=== PATIENT | male | born 1985 | race Caucasian/White ===

== ENCOUNTER 2017-01-04 18:48 | Emergency (ER) | payer MEDICAID ==
[2017-01-04 19:02] VITALS: BP 155/100
--- NOTE | 2017-01-04 19:50 | ED Physician Documentation ---
History of Present Illness - Stated complaint Stated Complaint: FACIAL RASH - Chief complaint Chief Complaint: General - History obtained from History obtained from: Patient, Family - History of Present Illness Timing: Today (Mildly itchy facial rash starting today without clear cause. No new medications or topical treatments. No throat swelling, sore throat or trouble breathing.) Review of Systems Constitutional: denies: Fever, Chills Nose: denies: Rhinorrhea / runny nose, Congestion Throat: denies: Sore throat Respiratory: denies: Dyspnea, Cough GI: denies: Abdominal Pain PD PAST MEDICAL HISTORY - Past Medical History Past Medical History: Yes Cardiovascular: None Respiratory: Asthma Neuro: Cerebral palsy Endocrine/Autoimmune: None GI: None : None HEENT: None Psych: None Musculoskeletal: Osteoporosis Derm: None - Past Surgical History Past Surgical History: Yes - Present Medications Home Medications: Ambulatory Orders Medication Instructions Recorded Confirmed Baclofen 20 mg PO TID 11/18/12 11/18/12 Calcium Carbonate [Tums] 1 11/18/12 11/18/12 Cholecalciferol (Vitamin D3) 400 unit PO 11/18/12 11/18/12 [Vitamin D] Diazepam [Valium] 5 mg PO PRN PRN 11/18/12 11/18/12 HYDROcod/ACETAM 5/325 [Vicodin 1 tab PO PRN PRN 11/18/12 11/18/12 5/325] Nortriptyline [Pamelor] 20 mg PO DAILY 01/04/17 01/04/17 - Allergies Allergies/Adverse Reactions: Allergies Allergy/AdvReac Type Severity Reaction Status Date / Time gabapentin Allergy Hives Verified 01/04/17 19:35 ibuprofen [From Motrin IB] Allergy Rash Verified 01/04/17 19:02 - Social History Does the pt smoke?: No Smoking Status: Never smoker Does the pt drink ETOH?: No Does the pt have substance abuse?: No - Immunizations Immunizations are current?: Yes - POLST Patient has POLST: No PD ED PE NORMAL - Vitals Vital signs reviewed: Yes - General General: Alert and oriented X 3, No acute distress - HEENT HEENT: PERRL, EOMI, Pharynx benign - Neck Neck: Supple, no meningeal sign, No bony TTP - Derm Derm: Other (Mild facial erythema stopping at the neckline, there is a sandpaper type quality to it, making her reminiscent of scarlet fever but he doesn't have any fever or sore throat.) - Neuro Neuro: Alert and oriented X 3, Other - Psych Psych: Normal mood, Normal affect Results - Vitals Vitals: Vital Signs - 24 hr 01/04/17 18:57 Temperature 36.7 C Heart Rate 102 H Respiratory 20 Rate Blood Pressure 155/100 H O2 Saturation 97 Oxygen O2 Source Room air Departure - Departure Disposition: Home, Self Care Clinical Impression: Facial rash Condition: Good Record reviewed to determine appropriate education?: Yes Instructions: ED Erythema Comments: Continue Benadryl as needed for itching. Return if worse or if you run a fever. If still having issues next week followup with your primary care physician or a fiberglass model maker. Your blood pressure was elevated today on check in to the emergency department. This does not mean that you have hypertension, it is a common phenomenon to check into the emergency department and have elevated blood pressure. I recommend that you see your primary care physician within the week to have it rechecked when you're feeling better.
== END 2017-01-04 19:54 | disposition home or self-care (01) ==
LOC: ED 18:48
DX: R21 Rash and other nonspecific skin eruption (principal); R03.0 Elevated blood-pressure reading, without diagnosis of hypertension
CPT/HCPCS: 99282; 99283

== ENCOUNTER 2017-08-27 23:11 | Emergency (ER) | payer MEDICAID ==
[2017-08-27] MEDS ORDERED: ONDANSETRON ODT 4 MG TABLET TL STA (23:30)
--- NOTE | 2017-08-27 23:42 | ED Physician Documentation ---
History of Present Illness - Stated complaint Stated Complaint: NAUSEA/VOMITING - Chief complaint Chief Complaint: Allergic Rx - History obtained from History obtained from: Patient, Family - History of Present Illness Timing: Today - Additonal information Additional information: Patient is a 31 year old male with a history of cerebral palsy and chronic pain who was brought in by his mother for one episode of vomiting. Mother states that she tried a new medicine today for him. After taking the medication he vomited one time. Patient's father was coming in for GI symptoms so they had the son evaluated as well. Review of Systems Constitutional: denies: Fever, Chills Eyes: reports: Reviewed and negative Ears: reports: Reviewed and negative Nose: reports: Reviewed and negative Throat: reports: Reviewed and negative Cardiac: reports: Reviewed and negative Respiratory: reports: Reviewed and negative GI: reports: Reviewed and negative : reports: Reviewed and negative Skin: reports: Reviewed and negative Musculoskeletal: reports: Reviewed and negative Neurologic: reports: Other (unchanged) Psychiatric: reports: Reviewed and negative Endocrine: reports: Reviewed and negative PD PAST MEDICAL HISTORY - Past Medical History Past Medical History: Yes Cardiovascular: None Respiratory: Asthma Neuro: Cerebral palsy Endocrine/Autoimmune: None GI: None : None HEENT: None Psych: None Musculoskeletal: Osteoporosis, Chronic back pain Derm: None - Past Surgical History Past Surgical History: Yes - Present Medications Home Medications: Ambulatory Orders Medication Instructions Recorded Confirmed Baclofen 20 mg PO TID 11/18/12 11/18/12 Calcium Carbonate [Tums] 1 11/18/12 11/18/12 Cholecalciferol (Vitamin D3) 400 unit PO 11/18/12 11/18/12 [Vitamin D] Diazepam [Valium] 5 mg PO PRN PRN 11/18/12 11/18/12 HYDROcod/ACETAM 5/325 [Vicodin 1 tab PO PRN PRN 11/18/12 11/18/12 5/325] Nortriptyline [Pamelor] 20 mg PO DAILY 01/04/17 01/04/17 Ondansetron Odt [Zofran] 4 mg TL Q6H PRN #14 tablet 08/27/17 diazePAM [Valium] 5 - 10 mg PO TID PRN #15 tablet 08/27/17 - Allergies Allergies/Adverse Reactions: Allergies Allergy/AdvReac Type Severity Reaction Status Date / Time gabapentin Allergy Hives Verified 08/27/17 23:37 ibuprofen [From Motrin IB] Allergy Rash Verified 08/27/17 23:37 - Social History Does the pt smoke?: No Smoking Status: Never smoker Does the pt drink ETOH?: No Does the pt have substance abuse?: No - Immunizations Immunizations are current?: Yes - POLST Patient has POLST: No PD ED PE NORMAL - General General: Alert and oriented X 3, No acute distress - HEENT HEENT: Atraumatic, Moist mucous membranes - Cardiac Cardiac: RRR - Respiratory Respiratory: No respiratory distress - Abdomen Abdomen: Soft, Non distended - Derm Derm: Normal color, No rash - Neuro Neuro: Alert and oriented X 3, Normal speech Eye Opening: Spontaneous Motor: Obeys Commands Verbal: Oriented GCS Score: 15 Results - Vitals Vitals: Vital Signs - 24 hr 08/27/17 08/28/17 23:20 00:15 Temperature 36.4 C L Heart Rate 120 H 105 H Respiratory 20 21 Rate Blood Pressure 129/118 H 150/95 H O2 Saturation 99 98 Oxygen O2 Source Room air PD MEDICAL DECISION MAKING - ED course Complexity details: reviewed old records, re-evaluated patient, considered differential, d/w patient, d/w family ED course: Patient was seen and examined at bedside. patient was well appearing and in no acute distress. patient was treated with zofran and his nightly vicodin. Patient tolerate PO without difficulty. Patient required no further work up and was stable for discharge with outpatient follow up. Departure - Departure Disposition: 01 Home, Self Care Clinical Impression: Adverse drug effect Condition: Good Instructions: ED Drug React Adverse Other Follow-Up: Kathy Ponce ARNP [Primary Care Provider] - Within 3 Days Prescriptions: diazePAM [Valium] 5 - 10 mg PO TID PRN #15 tablet PRN Reason: Spasms Ondansetron Odt [Zofran] 4 mg TL Q6H PRN #14 tablet PRN Reason: Nausea / Vomiting Comments: You should stop your new muscle relaxer. You can take zofran as needed for nausea. You should follow up with your doctor this week for further evaluation and care. Discharge Date/Time: 08/28/17 00:40
[2017-08-28] MEDS ORDERED: HYDROcod/ACETAM 5/325 MG TABLET PO STA (00:09)
[2017-08-28 00:15] VITALS: BP 150/95
[2017-08-28] MEDS ORDERED: ONDANSETRON ODT 4 MG Prepack 2 TL PRN (00:29)
== END 2017-08-28 00:40 | disposition home or self-care (01) ==
LOC: ED 23:11
DX: R11.2 Nausea with vomiting, unspecified (principal); T48.205A Adverse effect of unspecified drugs acting on muscles, initial encounter; G80.9 Cerebral palsy, unspecified
CPT/HCPCS: 99283; A9270; Q0162

== ENCOUNTER 2017-10-17 16:30 | Outpatient (CLI) | payer MEDICAID ==
[2017-10-17 18:41] LABS: BILIRUBIN,URINE NEGATIVE (NEGATIVE); GLUCOSE, URINE (UA) NEGATIVE (NEGATIVE); KETONES,URINE (UA) NEGATIVE (NEGATIVE); LEUKOCYTE ESTERASE, URINE NEGATIVE (NEGATIVE); NITRITE,URINE NEGATIVE (NEGATIVE); OCCULT BLOOD,URINE NEGATIVE (NEGATIVE); PROTEIN,URINE NEGATIVE (NEGATIVE); UROBILINOGEN,URINE 0.2 (NORMAL) E.U./dL (NORMAL)
[2017-10-17 18:47] LABS: CLARITY,URINE CLEAR (CLEAR)
[2017-10-17 19:02] LABS: BACTERIA,URINE Rare /HPF (None Seen); MUCUS,URINE Few Strands; RBC,URINE 0-5 /HPF (0-5); SQUAMOUS EPITHELIAL CELL,UR RARE Squamous (<= Few)
== END 2017-10-17 16:31 | disposition home or self-care (01) ==
LOC: LAB.R 16:30
PROVIDERS: ATTEND Physician Assistant Medical
DX: N43.3 Hydrocele, unspecified (principal); N50.811 Right testicular pain
CPT/HCPCS: 81001; 87086

== ENCOUNTER 2017-10-18 06:50 | Emergency (ER) | payer MEDICAID ==
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
[2017-10-18 15:56] VITALS: BP 150/90
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
== END 2017-10-18 15:55 | disposition home or self-care (01) ==
LOC: ED 06:50
DX: F29 Unspecified psychosis not due to a substance or known physiological condition (principal); F41.9 Anxiety disorder, unspecified; E86.0 Dehydration; G80.9 Cerebral palsy, unspecified; G89.29 Other chronic pain
CPT/HCPCS: 99283; 99284; G0425; Q3014

== ENCOUNTER 2017-11-13 16:00 | Outpatient (CLI) | payer MEDICAID ==
[2017-11-13 20:19] LABS: BILIRUBIN,URINE NEGATIVE (NEGATIVE); GLUCOSE, URINE (UA) NEGATIVE (NEGATIVE); KETONES,URINE (UA) NEGATIVE (NEGATIVE); LEUKOCYTE ESTERASE, URINE NEGATIVE (NEGATIVE); NITRITE,URINE NEGATIVE (NEGATIVE); OCCULT BLOOD,URINE NEGATIVE (NEGATIVE); PROTEIN,URINE NEGATIVE (NEGATIVE); UROBILINOGEN,URINE 0.2 (NORMAL) E.U./dL (NORMAL)
[2017-11-13 20:37] LABS: CLARITY,URINE CLEAR (CLEAR)
[2017-11-13 20:38] LABS: BACTERIA,URINE None Seen /HPF (None Seen); CRYSTALS,URINE 11-25 Ca Oxalate /LPF; RBC,URINE 0-5 /HPF (0-5); SQUAMOUS EPITHELIAL CELL,UR NONE SEEN (<= Few)
== END 2017-11-13 16:01 ==
LOC: LAB.R 16:00
PROVIDERS: ATTEND Physician Assistant Medical
DX: M54.5 Low back pain (principal); N50.9 Disorder of male genital organs, unspecified
CPT/HCPCS: 81001; 87086

== ENCOUNTER 2017-11-20 14:52 | Outpatient (CLI) | payer MEDICAID ==
--- NOTE | 2017-11-20 16:16 | Ultrasound Report ---
SCROTAL DUPLEX: 11/20/2017 CLINICAL INDICATION: Right-sided palpable abnormality. TECHNIQUE: Real-time scanning with patient portal representative static images obtained with Doppler. FINDINGS: The right testicle measures 4.1 x 2.9 x 2.0 cm, and the left testicle measures 4.3 x 2.5 x 2.1 cm. Both testicles demonstrate normal flow and echotexture. There is a 6.2 x 5.8 x 3.5 cm right epididymal cyst. Trace right hydrocele is present. The left epididymis is unremarkable. No hernia or varicocele is present. IMPRESSION: A 6.2 CM RIGHT EPIDIDYMAL CYST, ACCOUNTING FOR THE PALPABLE ABNORMALITY. NORMAL TESTES. TD: 11/20/2017 16:15 [facility]
== END 2017-11-20 14:53 | disposition home or self-care (01) ==
LOC: DI 14:52
PROVIDERS: ATTEND Physician Assistant Medical
DX: N50.9 Disorder of male genital organs, unspecified (principal); N50.3 Cyst of epididymis
CPT/HCPCS: 76870

== ENCOUNTER 2017-12-11 15:07 | Outpatient (CLI) | payer MEDICAID | END 2017-12-11 15:08 | disposition short-term general hospital (02) | LOC: EMS 15:07 | PROVIDERS: ATTEND Surgery | DX: R53.1 Weakness (principal); R52 Pain, unspecified; R05 Cough | CPT/HCPCS: A0425; A0427 ==

== ENCOUNTER 2018-04-30 14:28 | Outpatient (CLI) | payer MEDICAID ==
[2018-04-30 18:50] LABS: BASOPHILS % (AUTO) 0.5 %; EOSINOPHILS # (AUTO) 0.2 10^3/uL (0.0-0.7); EOSINOPHILS % (AUTO) 2.1 %; HGB - HEMOGLOBIN 15.2 g/dL (14.0-18.0); LYMPHOCYTES # (AUTO) 3.2 10^3/uL (1.5-3.5); LYMPHOCYTES % (AUTO) 29.9 %; MEAN CORPUSCULAR HEMOGLOBIN 27.3 pg (27.0-31.0); MEAN CORPUSCULAR HGB CONC 32.7 g/dL (32.0-36.0); MEAN CORPUSCULAR VOLUME 83.6 fL (80.0-94.0); MEAN PLATELET VOLUME 8.5 fL (7.4-11.4); MONOCYTES # (AUTO) 1.1 10^3/uL (0.0-1.0); MONOCYTES % (AUTO) 10.7 %; NEUTROPHILS # (AUTO) 6.1 10^3/uL (1.5-6.6); NEUTROPHILS % (AUTO) 56.8 %; PLT - PLATELET COUNT 388 10^3/uL (130-450); RED BLOOD COUNT 5.56 10^6/uL (4.70-6.10); RED CELL DISTRIBUTION WIDTH 13.8 % (12.0-15.0); WHITE BLOOD COUNT 10.7 x10^3/uL (4.8-10.8)
[2018-04-30 19:08] LABS: CALCIUM 9.5 mg/dL (8.5-10.3); CREATININE 0.6 mg/dL (0.6-1.2)
== END 2018-04-30 14:29 | disposition home or self-care (01) ==
LOC: LAB.N 14:28
PROVIDERS: ATTEND Physician Assistant Medical
DX: I10 Essential (primary) hypertension (principal); E55.9 Vitamin D deficiency, unspecified; M81.0 Age-related osteoporosis without current pathological fracture
CPT/HCPCS: 36415; 80048; 82306; 84443; 85025

== ENCOUNTER 2018-07-27 14:59 | Emergency (ER) | payer MEDICAID ==
[2018-07-27] MEDS ORDERED: BENZONATATE 100 MG CAPSULE PO STA (16:25)
[2018-07-27] MEDS ORDERED: HYDROcod/ACETAM 5/325 MG TABLET PO STA (16:25)
[2018-07-27] MEDS ORDERED: IPRATROPIUM/ALBUTEROL 3 ML NEB INH STA (16:25)
[2018-07-27] MEDS ORDERED: predniSONE 20 MG TABLET PO STA (16:25)
--- NOTE | 2018-07-27 16:27 | ED Physician Documentation ---
PD HPI DYSPNEA - Stated complaint Stated Complaint: SOA - Chief complaint Chief Complaint: Resp - History obtained from History obtained from: Patient, Family - History of Present Illness Timing - onset: Other (32-year-old gentleman with cerebral palsy and mild intermittent asthma presents with 2 weeks of cough that was initially productive but for the last 3 days has been dry associated with shortness of breath and wheezing. His albuterol inhaler is not been helpful. He denies any fevers.) Review of Systems Constitutional: denies: Fever, Chills Cardiac: reports: Chest pain / pressure (with cough) Respiratory: reports: Dyspnea, Cough GI: denies: Abdominal Pain Musculoskeletal: reports: Back pain (chronic) PD PAST MEDICAL HISTORY - Past Medical History Cardiovascular: None Respiratory: Asthma Endocrine/Autoimmune: None GI: None : None HEENT: None Psych: None Musculoskeletal: Osteoporosis, Chronic back pain Derm: None - Past Surgical History Past Surgical History: Yes - Present Medications Home Medications: Ambulatory Orders Medication Instructions Recorded Confirmed Baclofen 20 mg PO TID 11/18/12 11/18/12 Calcium Carbonate [Tums] 1 mg PO DAILY 11/18/12 11/18/12 Cholecalciferol (Vitamin D3) 400 unit PO 11/18/12 11/18/12 [Vitamin D] HYDROcod/ACETAM 5/325 [Vicodin 1 tab PO PRN PRN 11/18/12 11/18/12 5/325] Nortriptyline [Pamelor] 20 mg PO DAILY 01/04/17 01/04/17 Ondansetron Odt [Zofran] 4 mg TL Q6H PRN #14 tablet 08/27/17 Methocarbamol [Robaxin] 500 mg PO ONCE 10/18/17 10/18/17 Albuterol 2.5 mg INH Q4H PRN #30 neb 07/27/18 Benzonatate [Tessalon Perle] 100 - 200 mg PO TID PRN #30 capsule 07/27/18 Hydrocodone/Chlorphen P-Stirex 5 ml PO BID PRN #90 ml 07/27/18 [Hydrocodone-Chlorphen ER Susp] Nebulizer and Compressor [Portable 1 each MC ONCE #1 each 07/27/18 Nebulizer System] predniSONE [Deltasone] 20 mg PO [id number] #21 tab 01/07/19 - Allergies Allergies/Adverse Reactions: Allergies Allergy/AdvReac Type Severity Reaction Status Date / Time gabapentin Allergy Hives Verified 07/27/18 15:17 ibuprofen [From Motrin IB] Allergy Rash Verified 07/27/18 15:17 - Social History Does the pt smoke?: No Smoking Status: Never smoker Does the pt drink ETOH?: No Does the pt have substance abuse?: No - Immunizations Immunizations are current?: Yes - POLST Patient has POLST: No PD ED PE NORMAL - Vitals Vital signs reviewed: Yes - General General: Alert and oriented X 3, Other (Frequent coughing) - Cardiac Cardiac: RRR, No murmur - Respiratory Respiratory: No respiratory distress, Other (Diminished but nonlabored, nothing focal) - Abdomen Abdomen: Non tender - Neuro Neuro: Alert and oriented X 3, Normal speech Results - Vitals Vitals: Vital Signs - 24 hr 07/27/18 15:14 Temperature 37 C Heart Rate 101 H Respiratory 22 Rate Blood Pressure 146/116 H O2 Saturation 98 Oxygen O2 Source Room air - EKG (time done) 1531 Rate: Rate (enter#) (92) Rhythm: NSR [place]: Normal Intervals: Normal SD QRS: Normal Ischemia: Normal ST segments Computer interpretation: Agree with computer - Rads (name of study) 2v chest Radiology: EMP read contemporaneously (NAD) PD MEDICAL DECISION MAKING - ED course ED course: 32-year-old gentleman with asthmatic bronchitis. Some improvement after a DuoNeb here. He states that his home inhaler has not been effective and would prefer a nebulizer. His x-ray is clear and there is no sign of pneumonia or infection per se. Departure - Departure Disposition: 01 Home, Self Care Clinical Impression: Bronchitis Asthma Qualifiers: Asthma severity: mild Asthma persistence: intermittent Asthma complication type: with acute exacerbation Qualified Code(s): J45.21 - Mild intermittent asthma with (acute) exacerbation Condition: Good Record reviewed to determine appropriate education?: Yes Instructions: Asthma Dc Prescriptions: Albuterol 2.5 mg INH Q4H PRN #30 neb PRN Reason: Wheezing Benzonatate [Tessalon Perle] 100 - 200 mg PO TID PRN #30 capsule PRN Reason: Cough Hydrocodone/Chlorphen P-Stirex [Hydrocodone-Chlorphen ER Susp] 5 ml PO BID PRN #90 ml PRN Reason: Cough Nebulizer and Compressor [Portable Nebulizer System] 1 each MC ONCE #1 each predniSONE [Deltasone] 20 mg PO [id number] #21 tab Comments: Call your doctor to arrange a follow-up appointment, make the next available appointment. In the interim, return anytime if worse or if new symptoms develop. Your blood pressure was elevated today on check into the emergency department. This does not mean that you have hypertension, it is a common phenomenon to come to the emergency department and have elevated blood pressure. I recommend that you see your primary care physician within the week to have it rechecked when you are feeling better.
--- NOTE | 2018-07-27 16:31 | XRAY Report ---
Reason: soa cough Procedure Date: 07/27/2018 Accession Number: [id number] / [id number] Procedure: XR - Chest 2 View X-Ray CPT Code: 26642 FULL RESULT: EXAM: CHEST RADIOGRAPHY EXAM DATE: 07/27/2018 04:22 PM. CLINICAL HISTORY: Soa cough. COMPARISON: CHEST 2 VIEW PA/LAT 06/22/2013 5:22 PM. TECHNIQUE: 2 views. FINDINGS: Lungs/Pleura: Suboptimal degree of inspiration. No definite localized infiltrate, consolidation, effusion, or pneumothorax. Mediastinum: Given degree of inspiration, heart and mediastinal contours are unremarkable. Upper lobe vessels not distended. Other: None. IMPRESSION: No acute disease. RADIA
[2018-07-27 17:18] VITALS: BP 144/97
== END 2018-07-27 17:25 | disposition home or self-care (01) ==
LOC: ED 14:59
DX: J40 Bronchitis, not specified as acute or chronic (principal); J45.21 Mild intermittent asthma with (acute) exacerbation; R03.0 Elevated blood-pressure reading, without diagnosis of hypertension; G80.9 Cerebral palsy, unspecified
CPT/HCPCS: 71046; 93005; 94640; 94664; 99283; A9270; J7512

== ENCOUNTER 2018-08-09 17:23 | Emergency (ER) | payer MEDICAID ==
--- NOTE | 2018-08-09 17:33 | ED Physician Documentation ---
PD HPI URI - Stated complaint Stated Complaint: FEVER - Chief complaint Chief Complaint: Fever - History obtained from History obtained from: Patient, Family - History of Present Illness Timing - onset: How many weeks ago (2) Timing duration: Weeks (2) Timing details: Gradual onset, Still present (He was seen couple weeks ago for cough and wheezing. He was treated with albuterol, steroids, cough medicine and Tessalon. He states he improved reasonably well with those but not completely better and then the last day or 2 has had increasing cough now productive of green sputum associated with fevers and anterior chest pain with coughing. He denies any vomiting or diarrhea.) Associated symptoms: Fever (1-2 days), Chills, Nasal congestion, Productive cough, Dyspnea. No: NVD, Bilateral edema Contributing factors: COPD / asthma. No: Sick contact, Immunocompromised Improves by: MDI/nebulizer Recently seen: Emergency Dept (Dx viral bronchitis) Review of Systems Constitutional: reports: Fever (the past day), Chills, Myalgias Nose: reports: Rhinorrhea / runny nose, Congestion Throat: denies: Sore throat Cardiac: reports: Chest pain / pressure (with coughing). denies: Palpitations, Pedal edema, Calf pain Respiratory: reports: Dyspnea, Cough (He has been ill for a couple of weeks with initially coughing clear sputum. It did improve some with the prior medications of steroid, nebulizer, cough medicine. However his cough has returned and is now productive of green sputum and he has had fevers the last day. He is having pain in the anterior chest with coughing. He has not had any vomiting or diarrhea.), Wheezing. denies: Hemoptysis GI: denies: Abdominal Pain, Nausea, Vomiting Skin: denies: Rash, Lesions PD PAST MEDICAL HISTORY - Past Medical History Cardiovascular: None Respiratory: Asthma Endocrine/Autoimmune: None GI: None : None HEENT: None Psych: None Musculoskeletal: Osteoporosis, Chronic back pain Derm: None - Past Surgical History Past Surgical History: Yes Ortho: Other - Present Medications Home Medications: Ambulatory Orders Medication Instructions Recorded Confirmed Baclofen 20 mg PO TID 11/18/12 08/09/18 Calcium Carbonate [Tums] 1 mg PO DAILY 11/18/12 08/09/18 Cholecalciferol (Vitamin D3) 400 unit PO DAILY 11/18/12 08/09/18 [Vitamin D] HYDROcod/ACETAM 5/325 [Vicodin 1 tab PO PRN PRN 11/18/12 08/09/18 5/325] Nebulizer and Compressor [Portable 1 each MC ONCE #1 each 07/27/18 08/09/18 Nebulizer System] Albuterol 2.5 mg INH Q4H PRN #30 neb 08/09/18 Benzonatate [Tessalon Perle] 100 - 200 mg PO TID PRN #30 capsule 08/09/18 Dexamethasone [Decadron] 4 mg PO DAILY #5 tablet 08/09/18 Doxycycline Hyclate 100 mg PO BID #20 capsule 08/09/18 guaiFENesin/CODEINE [Robitussin AC] 10 ml PO Q6H PRN #240 ml 08/09/18 - Allergies Allergies/Adverse Reactions: Allergies Allergy/AdvReac Type Severity Reaction Status Date / Time gabapentin Allergy Hives Verified 07/27/18 15:17 ibuprofen [From Motrin IB] Allergy Rash Verified 08/09/18 17:30 - Living Situation Living Situation: reports: With family Living Arrangement: reports: At home - Social History Does the pt smoke?: No Smoking Status: Never smoker Does the pt drink ETOH?: No Does the pt have substance abuse?: No - Family History Family history: reports: Non contributory - Immunizations Immunizations are current?: Yes - POLST Patient has POLST: No PD ED PE NORMAL - Vitals Vital signs reviewed: Yes - General General: Alert and oriented X 3, Well developed/nourished, Other (Appears with some mild labored breathing. Also appears to be hurting with coughing. ) - HEENT HEENT: Ears normal, Moist mucous membranes, Pharynx benign - Neck Neck: Supple, no meningeal sign, No adenopathy - Cardiac Cardiac: No: RRR (regular but tachycardic) - Respiratory Respiratory: No respiratory distress (no retractions nor tachypnea, but some wheezing and frequent coughing. ). No: Clear bilaterally (no coarse sounds, but does have exp wheezing diffusely (but mostly central/hilar).) - Abdomen Abdomen: Soft, Non tender - Back Back: No CVA TTP - Derm Derm: Normal color, Warm and dry - Extremities Extremities: No edema, No calf tenderness / cord - Neuro Neuro: Alert and oriented X 3, No motor deficit, Normal speech Results - Vitals Vitals: Vital Signs - 24 hr 08/09/18 17:26 Temperature 36.6 C Heart Rate 127 H Respiratory 24 Rate Blood Pressure 140/84 H O2 Saturation 96 Oxygen O2 Source Room air - Rads (name of study) chest xray Radiology: Prelim report reviewed, EMP read contemporaneously (no acute infiltrate. ), See rad report PD MEDICAL DECISION MAKING - ED course Complexity details: reviewed results (He does have some pain with coughing. We will give him some pain medicine for that. He is states he is breathing a little bit better with his nebulizer. His oxygenation is adequate. His heart rate is still elevated but he appears stable otherwise.) Departure - Departure Clinical Impression: Acute bronchitis Qualifiers: Bronchitis organism: unspecified organism Qualified Code(s): J20.9 - Acute bronchitis, unspecified Condition: Stable Record reviewed to determine appropriate education?: Yes Instructions: ED Upper Resp Infec Abx Tx Follow-Up: Brad Hines PA-C [Primary Care Provider] - Prescriptions: Albuterol 2.5 mg INH Q4H PRN #30 neb PRN Reason: Wheezing Benzonatate [Tessalon Perle] 100 - 200 mg PO TID PRN #30 capsule PRN Reason: Cough Dexamethasone [Decadron] 4 mg PO DAILY #5 tablet Doxycycline Hyclate 100 mg PO BID #20 capsule guaiFENesin/CODEINE [Robitussin AC] 10 ml PO Q6H PRN #240 ml PRN Reason: Cough Comments: Stay well-hydrated. Use albuterol 4 times a day for the next week or so to improve breathing and clear congestion. Decadron steroid daily for 5 more days. Doxycycline antibiotic twice daily for 10 days for likely bacterial component to the bronchitis at this point. Tessalon if needed for cough. Codeine cough medicine as well as needed for cough. Recheck with your primary care later this week and call for an appointment. Return sooner if worsening.
[2018-08-09] MEDS ORDERED: DOXYCYCLINE 100 MG TABLET PO STA (17:53)
[2018-08-09] MEDS ORDERED: guaiFENesin/CODEINE 5 ML UDC PO STA (17:53)
[2018-08-09] MEDS ORDERED: DEXAMETHASONE 10 MG/ML VIAL PO STA (17:53)
[2018-08-09] MEDS ORDERED: BENZONATATE 100 MG CAPSULE PO STA (17:53)
[2018-08-09] MEDS ORDERED: ACETAMINOPHEN 325 MG TABLET PO STA (17:53)
[2018-08-09] MEDS ORDERED: ALBUTEROL NEB 2.5 MG/3 ML INH STA (17:53)
--- NOTE | 2018-08-09 18:22 | XRAY Report ---
Reason: cough and dyspnea/wheezing Procedure Date: 08/09/2018 Accession Number: [id number] / [id number] Procedure: XR - Chest 2 View X-Ray CPT Code: 64628 FULL RESULT: EXAM: CHEST RADIOGRAPHY EXAM DATE: 08/09/2018 06:14 PM. CLINICAL HISTORY: Cough and dyspnea/wheezing. COMPARISON: CHEST 2 VIEW 07/27/2018 4:05 PM. TECHNIQUE: 2 views. FINDINGS: Lungs/Pleura: No dense consolidation. No large effusion or pneumothorax. No pulmonary edema. Mediastinum: Heart and mediastinal contours are unremarkable. Other: None. IMPRESSION: No acute radiographic pulmonary abnormalities. RADIA
[2018-08-09] MEDS ORDERED: oxyCODONE 5 MG TABLET PO STA (18:25)
[2018-08-09 18:40] VITALS: BP 154/88
== END 2018-08-09 19:02 | disposition home or self-care (01) ==
LOC: ED 17:23
DX: J20.9 Acute bronchitis, unspecified (principal)
CPT/HCPCS: 71046; 94640; 99283; A9270

== ENCOUNTER 2018-10-16 15:22 | Emergency (ER) | payer MEDICAID ==
[2018-10-16 15:27] VITALS: BP 133/93
[2018-10-16] MEDS ORDERED: ALBUTEROL NEB 2.5 MG/3 ML INH STA (15:49)
[2018-10-16] MEDS ORDERED: predniSONE 20 MG TABLET PO STA (15:49)
--- NOTE | 2018-10-16 16:28 | ED Physician Documentation ---
PD HPI DYSPNEA - Stated complaint Stated Complaint: SOA/CHEST DISCOMFORT - Chief complaint Chief Complaint: Resp - History obtained from History obtained from: Patient, Family - History of Present Illness Timing - onset: How many days ago (2) Timing - onset during: Rest (2) Timing - duration: Days (2) Timing - details: Gradual onset Pain level max: 0 Pain level now: 0 Inciting event(s): URI Improved by: Inhaler/neb Worsened by: Exertion, Coughing Associated symptoms: Cough, Wheezing, Chest pain / discomfort (tightnesss). No: Fever, Palpitations, Diaphoresis Similar symptoms before: Diagnosis (asthma) Recently seen: Not recently seen Review of Systems Constitutional: denies: Fever, Chills, Myalgias Nose: reports: Rhinorrhea / runny nose Respiratory: reports: Cough, Wheezing GI: denies: Vomiting : denies: Dysuria PD PAST MEDICAL HISTORY - Past Medical History Cardiovascular: None Respiratory: Asthma Endocrine/Autoimmune: None GI: None : None HEENT: None Psych: None Musculoskeletal: Osteoporosis, Chronic back pain Derm: None - Past Surgical History Past Surgical History: Yes Ortho: Other - Present Medications Home Medications: Ambulatory Orders Medication Instructions Recorded Confirmed Baclofen 20 mg PO TID 11/18/12 08/09/18 Calcium Carbonate [Tums] 1 mg PO DAILY 11/18/12 08/09/18 Cholecalciferol (Vitamin D3) 400 unit PO DAILY 11/18/12 08/09/18 [Vitamin D] HYDROcod/ACETAM 5/325 [Vicodin 1 tab PO PRN PRN 11/18/12 08/09/18 5/325] Nebulizer and Compressor [Portable 1 each MC ONCE #1 each 07/27/18 08/09/18 Nebulizer System] Albuterol 2.5 mg INH Q4H PRN #30 neb 08/09/18 Benzonatate [Tessalon Perle] 100 - 200 mg PO TID PRN #30 capsule 08/09/18 Dexamethasone [Decadron] 4 mg PO DAILY #5 tablet 08/09/18 Doxycycline Hyclate 100 mg PO BID #20 capsule 08/09/18 guaiFENesin/CODEINE [Robitussin AC] 10 ml PO Q6H PRN #240 ml 08/09/18 Albuterol Sulf [Ventolin Hfa 1 - 2 puffs INH Q4HR PRN #1 inhaler 10/16/18 Inhaler] predniSONE [Deltasone] 10 mg PO [id number] #42 tab 10/16/18 - Allergies Allergies/Adverse Reactions: Allergies Allergy/AdvReac Type Severity Reaction Status Date / Time gabapentin Allergy Hives Verified 07/27/18 15:17 ibuprofen [From Motrin IB] Allergy Rash Verified 10/16/18 15:26 - Social History Does the pt smoke?: No Smoking Status: Never smoker Does the pt drink ETOH?: No Does the pt have substance abuse?: No - Immunizations Immunizations are current?: Yes - POLST Patient has POLST: No PD ED PE NORMAL - Vitals Vital signs reviewed: Yes - General General: Alert and oriented X 3, No acute distress, Other (in a wheelchair) - HEENT HEENT: PERRL, Ears normal, Moist mucous membranes, Pharynx benign - Neck Neck: Supple, no meningeal sign - Cardiac Cardiac: RRR - Respiratory Respiratory: No respiratory distress, Other (diminished breath sounds B) - Derm Derm: Warm and dry - Neuro Neuro: Alert and oriented X 3 - Psych Psych: Normal mood, Normal affect Results - Vitals Vitals: Vital Signs - 24 hr 10/16/18 15:25 Temperature 36 C L Heart Rate 117 H Respiratory 22 Rate Blood Pressure 133/93 H O2 Saturation 95 Oxygen O2 Source Room air - Rads (name of study) cxr Radiology: Prelim report reviewed, EMP read contemporaneously, See rad report (no acute disease) PD MEDICAL DECISION MAKING - ED course Complexity details: reviewed results, re-evaluated patient, considered differential, d/w patient ED course: 32-year-old male presents to the emergency department with respiratory difficulty and what appears to be a viral upper respiratory infection. Feels much better after nebulizer treatment and steroids. Heart rate decreased to approximately 90 on the monitor. O2 sat was 97-98% on room lungs with improved aeration. Patient request to go home at this time. Patient and family counseled regarding signs and symptoms for which I believe and urgent re- evaluation would be necessary. Patient with good understanding of and agreement to plan and is comfortable going home at this time This document was made in part using voice recognition software. While efforts are made to proofread this document, sound alike and grammatical errors may occur. Departure - Departure Disposition: Home, Self Care Clinical Impression: Asthma Qualifiers: Asthma severity: unspecified severity Asthma persistence: unspecified Asthma complication type: with acute exacerbation Qualified Code(s): J45.901 - Unspecified asthma with (acute) exacerbation Condition: Good Instructions: ED Reactive Airway Disease Follow-Up: Brad Hines PA-C [Primary Care Provider] - Within 3 Days Prescriptions: Albuterol Sulf [Ventolin Hfa Inhaler] 1 - 2 puffs INH Q4HR PRN #1 inhaler PRN Reason: Shortness Of Air/Wheezing predniSONE [Deltasone] 10 mg PO [id number] #42 tab Comments: Follow-up with your doctor for further care. Return if you worsen. This should improve over the next 24 hours. Continue to use your albuterol every 3-4 hours at home. Discharge Date/Time: 10/16/18 17:53
--- NOTE | 2018-10-16 16:44 | XRAY Report ---
Reason: cough Procedure Date: 10/16/2018 Accession Number: [id number] / [id number] Procedure: XR - Chest 2 View X-Ray CPT Code: 56470 FULL RESULT: EXAM: CHEST RADIOGRAPHY EXAM DATE: 10/16/2018 04:34 PM. CLINICAL HISTORY: Cough. COMPARISON: CHEST 2 VIEW 08/09/2018 6:02 PM. TECHNIQUE: 2 views. FINDINGS: Lungs/Pleura: No focal opacities evident. No pleural effusion. No pneumothorax. Normal volumes. Mediastinum: Heart and mediastinal contours are unremarkable. Other: None. IMPRESSION: Negative for an acute cardiopulmonary abnormality RADIA
[2018-10-16] MEDS ORDERED: IPRATROPIUM/ALBUTEROL 3 ML NEB INH STA (17:15)
[2018-10-16] MEDS ORDERED: HYDROcod/ACETAM 5/325 MG TABLET PO STA (17:29)
== END 2018-10-16 17:53 | disposition home or self-care (01) ==
LOC: ED 15:22
DX: J45.901 Unspecified asthma with (acute) exacerbation (principal)
CPT/HCPCS: 71046; 94640; 94664; 99283; A9270; J7512

== ENCOUNTER 2018-10-20 11:49 | Emergency (ER) | payer MEDICAID ==
--- NOTE | 2018-10-20 12:05 | ED Physician Documentation ---
History of Present Illness - Stated complaint Stated Complaint: SOA - History obtained from History obtained from: Patient - Additonal information Additional information: Patient is a 32-year-old male with history of cerebral palsy and asthma presenting with persistent chest tightness and shortness of breath over the past 4-5 days. Patient was seen here on 10/16/18 with negative workup, including chest x-ray. At that time, it was believed the patient was suffering from a viral illness exacerbating his asthma and was discharged home on steroids. Patient continues to steroids appropriately, as well as his inhaler and nebulizer without much improvement. Patient has a dry cough, but denies fever, worsening URI symptoms, abdominal pain, vomiting, urinary or stool changes. Patient also denies recent prolonged travel or new calf pain or swelling.No other worsening or improving factors noted.Patient denies history of hospitalization or intubation for asthma. Review of Systems Constitutional: denies: Fever Respiratory: reports: Dyspnea, Cough PD PAST MEDICAL HISTORY - Past Medical History Cardiovascular: None Respiratory: Asthma Endocrine/Autoimmune: None GI: None : None HEENT: None Psych: None Musculoskeletal: Osteoporosis, Chronic back pain Derm: None Other Past Medical History: Cerebral palsy - Past Surgical History Past Surgical History: Yes Ortho: Other - Present Medications Home Medications: Ambulatory Orders Medication Instructions Recorded Confirmed Baclofen 20 mg PO TID 11/18/12 08/09/18 Calcium Carbonate [Tums] 1 mg PO DAILY 11/18/12 08/09/18 Cholecalciferol (Vitamin D3) 400 unit PO DAILY 11/18/12 08/09/18 [Vitamin D] HYDROcod/ACETAM 5/325 [Vicodin 1 tab PO PRN PRN 11/18/12 08/09/18 5/325] Nebulizer and Compressor [Portable 1 each MC ONCE #1 each 07/27/18 08/09/18 Nebulizer System] Albuterol 2.5 mg INH Q4H PRN #30 neb 08/09/18 Benzonatate [Tessalon Perle] 100 - 200 mg PO TID PRN #30 capsule 08/09/18 Dexamethasone [Decadron] 4 mg PO DAILY #5 tablet 08/09/18 Doxycycline Hyclate 100 mg PO BID #20 capsule 08/09/18 guaiFENesin/CODEINE [Robitussin AC] 10 ml PO Q6H PRN #240 ml 08/09/18 Albuterol Sulf [Ventolin Hfa 1 - 2 puffs INH Q4HR PRN #1 inhaler 10/16/18 Inhaler] predniSONE [Deltasone] 10 mg PO [id number] #42 tab 10/16/18 - Allergies Allergies/Adverse Reactions: Allergies Allergy/AdvReac Type Severity Reaction Status Date / Time gabapentin Allergy Hives Verified 10/20/18 12:06 ibuprofen [From Motrin IB] Allergy Rash Verified 10/20/18 12:06 - Social History Does the pt smoke?: No Smoking Status: Never smoker Does the pt drink ETOH?: No Does the pt have substance abuse?: No - Immunizations Immunizations are current?: Yes - POLST Patient has POLST: No PD ED PE NORMAL - General General: Alert and oriented X 3, No acute distress, Well developed/nourished, Other (Sitting Comfortably in wheelchair) - HEENT HEENT: Atraumatic, Pharynx benign. No: Moist mucous membranes - Cardiac Cardiac: RRR, No murmur - Respiratory Respiratory: No respiratory distress, Clear bilaterally, Other (No retractions, stridor, wheezing ) - Abdomen Abdomen: Soft, Non tender, Non distended - Derm Derm: Normal color, Warm and dry, No rash - Extremities Extremities: No edema - Neuro Neuro: Alert and oriented X 3, Other (Baseline motor and sensory skills per CP) - Psych Psych: Normal mood, Normal affect Results - Vitals Vitals: Vital Signs - 24 hr 10/20/18 10/20/18 12:04 12:28 Temperature 36 C L Heart Rate 112 H 97 Respiratory 22 20 Rate Blood Pressure 140/105 H O2 Saturation 96 Oxygen O2 Source Room air - EKG (time done) 1217 Rhythm: Sinus tachycardia Ischemia: Non specific changes - Labs Labs: Laboratory Tests 10/20/18 10/20/18 10/20/18 12:46 12:46 12:46 WBC 15.5 H RBC 5.35 Hgb 14.2 Hct 42.8 MCV 79.9 L MCH 26.5 L MCHC 33.2 RDW 14.5 Plt Count 359 MPV 8.1 Neut # (Auto) 11.7 H Lymph # (Auto) 2.6 Guthrie # (Auto) 1.0 Eos # (Auto) 0.1 Baso # (Auto) 0.1 Absolute Nucleated RBC 0.01 Nucleated RBC % 0.0 Sodium 135 Potassium 4.3 Chloride 100 L Carbon Dioxide 24 Anion Gap 11.0 BUN 22 H Creatinine 0.6 Estimated GFR (MDRD) 156 Glucose 133 H Calcium 9.9 Total Bilirubin 0.4 AST 21 ALT 31 Alkaline Phosphatase 66 Troponin I < 0.04 Total Protein 7.2 Albumin 3.8 Globulin 3.4 Albumin/Globulin Ratio 1.1 Lipase 33 PD MEDICAL DECISION MAKING - ED course Complexity details: reviewed old records, reviewed results, re-evaluated patient, considered differential, d/w patient, d/w family ED course: Patient does have history of baseline asthma, however, this does not appear to necessarily be an acute asthma exacerbation. Patient has been on appropriate medications for asthma without improvement. Also have low suspicion for underlying cardiac disease such as PR, ACS, unstable angina do not feel patient requires aspirin immediately, but will obtain EKG and troponin. Only one troponin will be required given duration of symptoms. Also have concern for pneumonia and PE from a pulmonary standpoint. Chest x-ray several days ago was unremarkable for pneumonia or other acute pathology. Given his persistent symptoms and symptomatology, feel that obtaining CTA would be worthwhile. Additional screening lab work also obtained. Patient received DuoNeb.Patient reports significant improvement following DuoNeb, although pulmonary exam relatively unchanged. EKG and troponin returned unremarkable for ischemia and again have low suspicion for true cardiac etiologies. Remainder screening lab work also relatively unremarkable except for mild leukocytosis, which could be due to reactive airway disease or use of steroids, as well as infection or PE. Patient requesting food and at this time, but asked him to remain n.p.o. until CT imaging returned.CT imaging returned negative. At this time, do not feel patient is experiencing an acute issue that requires hospitalization or further intervention. Advised patient of results and recommendations, as well as return precautions, supportive cares, need for close follow-up. Patient and family voiced understanding and are comfortable with discharge plan. Departure - Departure Disposition: 01 Home, Self Care Clinical Impression: Shortness of breath Condition: Good Instructions: ED Dyspnea Shortness of Breath Follow-Up: Brad Hines PA-C [Primary Care Provider] - Within 3 Days Comments: Please continue all home medications including inhaler, nebulizer, and steroids as previously prescribed. Please follow-up with primary care physician in next 2-3 days and return to ED sooner if expands worsening symptoms or other concerns.
[2018-10-20] MEDS ORDERED: IPRATROPIUM/ALBUTEROL 3 ML NEB INH STA (12:12)
[2018-10-20] MEDS ORDERED: SODIUM CHLORIDE 0.9% 1,000 ML IV ONE (12:14)
[2018-10-20 13:01] LABS: BASOPHILS # (AUTO) 0.1 10^3/uL (0.0-0.1); BASOPHILS % (AUTO) 0.8 %; EOSINOPHILS # (AUTO) 0.1 10^3/uL (0.0-0.7); EOSINOPHILS % (AUTO) 0.6 %; HGB - HEMOGLOBIN 14.2 g/dL (14.0-18.0); LYMPHOCYTES # (AUTO) 2.6 10^3/uL (1.5-3.5); MEAN CORPUSCULAR HEMOGLOBIN 26.5 pg (27.0-31.0); MEAN CORPUSCULAR HGB CONC 33.2 g/dL (32.0-36.0); MEAN CORPUSCULAR VOLUME 79.9 fL (80.0-94.0); MEAN PLATELET VOLUME 8.1 fL (7.4-11.4); MONOCYTES % (AUTO) 6.1 %; NEUTROPHILS # (AUTO) 11.7 10^3/uL (1.5-6.6); NEUTROPHILS % (AUTO) 75.5 %; PLT - PLATELET COUNT 359 10^3/uL (130-450); RED BLOOD COUNT 5.35 10^6/uL (4.70-6.10); RED CELL DISTRIBUTION WIDTH 14.5 % (12.0-15.0); WHITE BLOOD COUNT 15.5 x10^3/uL (4.8-10.8)
[2018-10-20 13:44] LABS: ALBUMIN 3.8 g/dL (3.2-5.5); ALBUMIN/GLOBULIN RATIO 1.1 (1.0-2.2); BILIRUBIN,TOTAL 0.4 mg/dL (0.2-1.0); CALCIUM 9.9 mg/dL (8.5-10.3); CREATININE 0.6 mg/dL (0.6-1.2); TOTAL PROTEIN 7.2 g/dL (6.7-8.2)
[2018-10-20] MEDS ORDERED: IOVERSOL 320 100 ML VIAL IVP ONE ×2 (13:58→14:42)
--- NOTE | 2018-10-20 15:40 | CT Report ---
Reason: concern for pe Procedure Date: 10/20/2018 Accession Number: [id number] / [id number] Procedure: CT - ANGIO CHEST W/WO CPT Code: FULL RESULT: EXAM: CT ANGIOGRAM CHEST EXAM DATE: 10/20/2018 02:52 PM. CLINICAL HISTORY: Concern for pe. COMPARISON: CHEST 2 VIEW 10/16/2018 4:27 PM. TECHNIQUE: Routine helical imaging was performed through the chest in the pulmonary arterial phase. IV Contrast: 140 cc of Optiray 320. Reconstructions: Coronal 3-D MIP reconstructions.Sagittal and coronal. Given a nondiagnostic initial imaging, a repeat bolus was performed. In accordance with CT protocol optimization, one or more of the following dose reduction techniques were utilized for this exam: automated exposure control, adjustment of mA and/or KV based on patient size, or use of iterative reconstructive technique. FINDINGS: Pulmonary Arteries: Diagnostic quality: Adequate through the segmental arteries. No evidence for acute or chronic central pulmonary emboli. Evaluation of the segmental and subsegmental pulmonary arteries is limited due to suboptimal bolus timing. Main pulmonary artery measures 151 HU. RV/LV is within normal limits. There is no interventricular septal bowing. There is no reflux of contrast material in the IVC. Lungs/Pleura: No consolidation, nodules, or edema. No effusions or pneumothorax. Mediastinum: Normal. No cardiac enlargement or adenopathy. Thoracic Aorta: Unremarkable. Upper Abdomen: Fatty liver. No mass. Small hiatal hernia. Other: None. IMPRESSION: 1. Evaluation of the segmental and subsegmental pulmonary arteries is limited due to suboptimal bolus timing. Given these limitations, no central pulmonary emboli. 2. No acute pulmonary process. 3. No cardiac enlargement or pericardial effusion or adenopathy. RADIA
[2018-10-20 16:06] VITALS: BP 121/74
== END 2018-10-20 16:06 | disposition home or self-care (01) ==
LOC: ED 11:49
DX: R06.02 Shortness of breath (principal); G80.9 Cerebral palsy, unspecified; J45.909 Unspecified asthma, uncomplicated; Z79.51 Long term (current) use of inhaled steroids
CPT/HCPCS: 36415; 71275; 80053; 83690; 84484; 85025; 93005; 94640; 94664; 96360; 99282; 99283; Q9967

== ENCOUNTER 2018-12-29 19:52 | Emergency (ER) | payer MEDICAID ==
[2018-12-29 20:08] VITALS: BP 142/97
[2018-12-29] MEDS ORDERED: traMADol 50 MG TABLET PO STA (20:58)
[2018-12-29] MEDS ORDERED: CLOTRIMAZOLE 1% CREAM 15 GM TUBE TOP SCH (21:00)
--- NOTE | 2018-12-29 21:01 | ED Physician Documentation ---
PD HPI UPPER EXT INJURY - Stated complaint Stated Complaint: LFT SHOULDER PX - Chief complaint Chief Complaint: Ext Problem - History obtained from History obtained from: Patient - History of Present Illness Location: Left, Shoulder Type of injury: Other (chronic, no recent trauma or injury) Where injury occurred: Home Timing - onset: Chronic Timing - duration: Years Timing - details: Intermittant, Waxing and waning Severity Comments: severe Improved by: Rest, Immobilization Worsened by: Moving, Palpating Associated symptoms: No: Weakness, Numbness, Tingling, Swelling, Discolored Contributing factors: No: Anticoagulated, Prior ortho surgery Similar symptoms before: Other (no known diagnosis per patient but this is chron ic and he has missed appointments for follow up) Recently seen: Not recently seen Review of Systems Ten Systems: 10 systems reviewed and negative Constitutional: denies: Fever, Chills Cardiac: denies: Chest pain / pressure Respiratory: denies: Dyspnea Skin: reports: Reviewed and negative Musculoskeletal: reports: Extremity pain, Joint pain. denies: Extremity swelling, Joint swelling Neurologic: denies: Focal weakness, Numbness PD PAST MEDICAL HISTORY - Past Medical History Past Medical History: Yes Cardiovascular: None Respiratory: Asthma, Other Neuro: None Endocrine/Autoimmune: None GI: None : None HEENT: None Psych: None Musculoskeletal: Osteoporosis, Chronic back pain Derm: None Other Past Medical History: CP.... - Past Surgical History Past Surgical History: Yes Ortho: Other - Present Medications Home Medications: Ambulatory Orders Medication Instructions Recorded Confirmed Calcium Carbonate [Tums] 1 mg PO DAILY 11/18/12 08/09/18 Cholecalciferol (Vitamin D3) 400 unit PO DAILY 11/18/12 08/09/18 [Vitamin D] HYDROcod/ACETAM 5/325 [Vicodin 1 tab PO PRN PRN 11/18/12 08/09/18 5/325] RX: Baclofen 20 mg PO QID 11/18/12 08/09/18 RX: Nebulizer and Compressor 1 each MC ONCE #1 each 07/27/18 08/09/18 [Portable Nebulizer System] RX: Albuterol 2.5 mg INH Q4H PRN #30 neb 08/09/18 RX: Albuterol Sulf [Ventolin Hfa 1 - 2 puffs INH Q4HR PRN #1 inhaler 10/16/18 Inhaler] RX: Clotrimazole [Clotrimazole AF] 1 applic TP BID #60 cream..g. 12/29/18 RX: Lisinopril 5 mg PO DAILY 12/29/18 12/29/18 RX: traMADol [Ultram] 50 mg PO Q4-6H #10 tablet 12/29/18 - Allergies Allergies/Adverse Reactions: Allergies Allergy/AdvReac Type Severity Reaction Status Date / Time celecoxib [From Celebrex] Allergy Itching Verified 12/30/18 11:36 chlorzoxazone Allergy Unknown Verified 12/30/18 11:36 gabapentin Allergy Hives Verified 10/20/18 12:06 ibuprofen [From Motrin IB] Allergy Rash Verified 10/20/18 12:06 - Social History Does the pt smoke?: No Smoking Status: Never smoker Does the pt drink ETOH?: No Does the pt have substance abuse?: No - Immunizations Immunizations are current?: Yes - POLST Patient has POLST: No PD ED PE NORMAL - Vitals Vital signs reviewed: Yes - General General: Alert and oriented X 3, No acute distress, Well developed/nourished - HEENT HEENT: Atraumatic - Neck Neck: Supple, no meningeal sign, No JVD - Cardiac Cardiac: RRR, No murmur, No gallop, No rub - Respiratory Respiratory: No respiratory distress, Clear bilaterally - Abdomen Abdomen: Soft, Non tender, Non distended - Male Male : Deferred - Rectal Rectal: Deferred - Back Back: No spinal TTP - Derm Derm: Other (multiple areas of raised, scaly rash on back of neck and under the pannus ) - Extremities Extremities: No deformity, No tenderness to palpate, Normal ROM s pain, No edema, No calf tenderness / cord, Other (L shoulder with Full passive ROM, mild pain with active ROM, no deformity, neurovascularly intact) - Neuro Neuro: Alert and oriented X 3 Eye Opening: Spontaneous Motor: Obeys Commands Verbal: Oriented GCS Score: 15 - Psych Psych: Normal mood, Normal affect Results - Vitals Vitals: Oxygen O2 Source Room air PD MEDICAL DECISION MAKING - ED course Complexity details: re-evaluated patient, considered differential, d/w patient, d/w family ED course: ddx - chronic pain, shoulder sprain, tendonitis, Pt with chronic L shoulder pain. No trauma, full ROm, no deformity No signs or symptoms of septic joint. Do not feel emergent labs or imaging are indicated today. Give analgesics and also treated pt's ongoing fungal skin infection that appears to be on his neck and abdomen. Pt continues to miss multiple appts advised regarding importance of regular outpt f/u Departure - Departure Disposition: Home, Self Care Clinical Impression: Tinea corporis Shoulder pain, left Qualifiers: Chronicity: chronic Qualified Code(s): M25.512 - Pain in left shoulder Condition: Stable Record reviewed to determine appropriate education?: Yes Instructions: ED Strain Muscle Ext Follow-Up: Brad Hines PA-C [Primary Care Provider] - Within 1 week Prescriptions: RX: Clotrimazole [Clotrimazole AF] 1 applic TP BID #60 cream..g. RX: traMADol [Ultram] 50 mg PO Q4-6H #10 tablet Discharge Date/Time: 12/29/18 21:20
== END 2018-12-29 21:20 | disposition home or self-care (01) ==
LOC: ED 19:52
DX: M25.512 Pain in left shoulder (principal); G89.29 Other chronic pain; B35.4 Tinea corporis
CPT/HCPCS: 99283; A9270

== ENCOUNTER 2019-04-06 19:04 | Emergency (ER) | payer MEDICAID ==
[2019-04-06 19:15] VITALS: BP 123/97
[2019-04-06] MEDS ORDERED: BENZONATATE 100 MG CAPSULE PO STA (19:41)
--- NOTE | 2019-04-06 19:41 | ED Physician Documentation ---
PD HPI HEENT - Stated complaint Stated Complaint: BILAT EAR PX - Chief complaint Chief Complaint: Heent - History obtained from History obtained from: Patient - History of Present Illness Timing - onset: Other (Bilateral ear pain for 2 days, also a cough productive of clear sputum. No fevers.) Review of Systems Constitutional: denies: Fever, Chills Eyes: denies: Loss of vision, Decreased vision Ears: reports: Ear pain. denies: Loss of hearing, Drainage/discharge Nose: reports: Congestion. denies: Rhinorrhea / runny nose, Sinus pressure / pain Throat: denies: Sore throat Respiratory: reports: Cough. denies: Dyspnea PD PAST MEDICAL HISTORY - Past Medical History Past Medical History: Yes Cardiovascular: None Respiratory: Asthma, Other Neuro: None Endocrine/Autoimmune: None GI: None : None HEENT: None Psych: None Musculoskeletal: Osteoporosis, Chronic back pain Derm: None - Past Surgical History Past Surgical History: Yes Ortho: Other - Present Medications Home Medications: Ambulatory Orders Medication Instructions Recorded Confirmed Baclofen 20 mg PO QID 11/18/12 08/09/18 Calcium Carbonate [Tums] 1 mg PO DAILY 11/18/12 08/09/18 Cholecalciferol (Vitamin D3) 400 unit PO DAILY 11/18/12 08/09/18 [Vitamin D] HYDROcod/ACETAM 5/325 [Vicodin 1 tab PO PRN PRN 11/18/12 08/09/18 5/325] Nebulizer and Compressor [Portable 1 each MC ONCE #1 each 07/27/18 08/09/18 Nebulizer System] Albuterol 2.5 mg INH Q4H PRN #30 neb 08/09/18 Albuterol Sulf [Ventolin Hfa 1 - 2 puffs INH Q4HR PRN #1 inhaler 10/16/18 Inhaler] Lisinopril 5 mg PO DAILY 12/29/18 12/29/18 Benzonatate [Tessalon Perle] 100 - 200 mg PO TID PRN #30 capsule 04/06/19 Neomycin/Polymyx/Hc Otic Drops 4 drops OT TID #1 bottle 04/06/19 [Cortisporin Ear Susp] - Allergies Allergies/Adverse Reactions: Allergies Allergy/AdvReac Type Severity Reaction Status Date / Time celecoxib [From Celebrex] Allergy Itching Verified 04/06/19 19:11 chlorzoxazone Allergy Unknown Verified 04/06/19 19:11 gabapentin Allergy Hives Verified 04/06/19 19:11 ibuprofen [From Motrin IB] Allergy Rash Verified 04/06/19 19:11 - Social History Does the pt smoke?: No Smoking Status: Never smoker Does the pt drink ETOH?: No Does the pt have substance abuse?: No - Immunizations Immunizations are current?: Yes - POLST Patient has POLST: No PD ED PE NORMAL - Vitals Vital signs reviewed: Yes - General General: Alert and oriented X 3, No acute distress - HEENT HEENT: PERRL, EOMI, Other (Bilateral external otitis and serous otitis without otitis media.) - Neck Neck: Supple, no meningeal sign, No bony TTP - Cardiac Cardiac: RRR, No murmur - Respiratory Respiratory: No respiratory distress, Clear bilaterally - Abdomen Abdomen: Non tender - Neuro Neuro: Alert and oriented X 3, Normal speech - Psych Psych: Normal mood, Normal affect Results - Vitals Vitals: Vital Signs - 24 hr 04/06/19 19:08 Temperature 36.2 C L Heart Rate 116 H Respiratory 18 Rate Blood Pressure 123/97 H O2 Saturation 98 Oxygen O2 Source Room air PD MEDICAL DECISION MAKING - ED course ED course: Note made of his heart rate, chart review shows that basically he is always tachycardic here. Departure - Departure Disposition: 01 Home, Self Care Clinical Impression: Otitis externa Qualifiers: Otitis externa type: other infective Chronicity: acute Laterality: bilateral Qualified Code(s): H60.393 - Other infective otitis externa, bilateral Condition: Good Record reviewed to determine appropriate education?: Yes Instructions: ED Otitis Externa Prescriptions: Benzonatate [Tessalon Perle] 100 - 200 mg PO TID PRN #30 capsule PRN Reason: Cough Neomycin/Polymyx/Hc Otic Drops [Cortisporin Ear Susp] 4 drops OT TID #1 bottle Comments: Return for high fevers, if pain is not controlled by her usual hydrocodone or other new concerning symptoms. Follow-up with your doctor in 1 week.
== END 2019-04-06 19:47 | disposition home or self-care (01) ==
LOC: ED 19:04
DX: H60.393 Other infective otitis externa, bilateral (principal)
CPT/HCPCS: 99282; 99283; A9270

== ENCOUNTER 2019-04-12 13:31 | Emergency (ER) | payer MEDICAID ==
--- NOTE | 2019-04-12 13:48 | ED Physician Documentation ---
PD HPI HEENT - Stated complaint Stated Complaint: EAR PX - Chief complaint Chief Complaint: Heent - History obtained from History obtained from: Patient - History of Present Illness Timing - onset: How many weeks ago (1) Location: Right ear Improves: Nothing Worsens: Everything Associated symptoms: Congestion. No: Fever, Rhinorrhea, Unable to swallow, Facial swelling Recently seen: Emergency Dept - Additional information Additional information: Is a 33-year-old with a history of chronic back pain who was seen last week for some right-sided ear pain was diagnosed with otitis externa and started on neomycin drops. He has been putting those in every 8 hours but it does not seem to be helping and the pain is now up to a 7 out of 10 despite taking Vicodin for his chronic back pain. He has not had any drainage from the ear. He has a sore throat that he rates at "not too bad" and he has had some mild nasal stuffiness over the past 3 days. He is felt warm but when he checks his temperature there is no fever. No nausea or vomiting. Denies history of diabetes. He had an appointment scheduled with his primary care provider tomorrow but said he just could not take the pain anymore tonight. Review of Systems Constitutional: denies: Fever Ears: reports: Ear pain. denies: Loss of hearing, Drainage/discharge Nose: reports: Rhinorrhea / runny nose Throat: reports: Sore throat PD PAST MEDICAL HISTORY - Past Medical History Cardiovascular: None Respiratory: Asthma, Other Neuro: None Endocrine/Autoimmune: None GI: None : None HEENT: None Psych: None Musculoskeletal: Osteoporosis, Chronic back pain Derm: None - Past Surgical History Past Surgical History: Yes Ortho: Other - Present Medications Home Medications: Ambulatory Orders Medication Instructions Recorded Confirmed Baclofen 20 mg PO QID 11/18/12 08/09/18 Calcium Carbonate [Tums] 1 mg PO DAILY 11/18/12 08/09/18 Cholecalciferol (Vitamin D3) 400 unit PO DAILY 11/18/12 08/09/18 [Vitamin D] HYDROcod/ACETAM 5/325 [Vicodin 1 tab PO PRN PRN 11/18/12 08/09/18 5/325] Nebulizer and Compressor [Portable 1 each ONCE #1 each 07/27/18 08/09/18 Nebulizer System] Albuterol 2.5 mg INH Q4H PRN #30 neb 08/09/18 Albuterol Sulf [Ventolin Hfa 1 - 2 puffs INH Q4HR PRN #1 inhaler 10/16/18 Inhaler] Lisinopril 5 mg PO DAILY 12/29/18 12/29/18 Benzonatate [Tessalon Perle] 100 - 200 mg PO TID PRN #30 capsule 04/06/19 Neomycin/Polymyx/Hc Otic Drops 4 drops OT TID #1 bottle 04/06/19 [Cortisporin Ear Susp] Amoxicillin 875 mg PO BID 10 Days #20 tablet 04/12/19 - Allergies Allergies/Adverse Reactions: Allergies Allergy/AdvReac Type Severity Reaction Status Date / Time celecoxib [From Celebrex] Allergy Itching Verified 04/12/19 13:35 chlorzoxazone Allergy Unknown Verified 04/12/19 13:35 gabapentin Allergy Hives Verified 04/12/19 13:35 ibuprofen [From Motrin IB] Allergy Rash Verified 04/12/19 13:35 - Social History Does the pt smoke?: No Smoking Status: Never smoker Does the pt drink ETOH?: No Does the pt have substance abuse?: No - Immunizations Immunizations are current?: Yes - POLST Patient has POLST: No PD ED PE NORMAL - Vitals Vital signs reviewed: Yes - General General: Alert and oriented X 3, No acute distress, Well developed/nourished - HEENT HEENT: Atraumatic, PERRL, Other (Mucous membranes are dry. There is a bit of a white coating on his tongue. There is pain with palpation over the right mastoid but is not boggy. The right ear canal actually fairly clear at this time. There is some mild erythema of the skin. No tympanic membrane perforation. There is some TM erythema and retraction with some fluid layering out behind the TM and air bubbles noted.) - Neck Neck: No adenopathy, Other (Is a very thick neck but no obvious lymphadenopathy.) - Derm Derm: Normal color, Other (Mildly diaphoretic) - Neuro Neuro: Other (Patient was sleeping in his wheelchair when I entered the room. Arouse to voice) Results - Vitals Vitals: Vital Signs - 24 hr 04/12/19 13:35 Temperature 36.9 C Heart Rate 109 H Respiratory 17 Rate Blood Pressure 132/93 H O2 Saturation 97 Oxygen O2 Source Room air PD MEDICAL DECISION MAKING - ED course Complexity details: d/w patient, d/w family ED course: Patient is instructed to stop using the drops. Given the constellation of erythema, air-fluid level behind the right TM and mastoid tenderness I elected to treat him with amoxicillin. He is encouraged to follow-up with his primary care provider for reevaluation if his symptoms are not improving. Departure - Departure Disposition: 01 Home, Self Care Clinical Impression: Otitis media Qualifiers: Otitis media type: unspecified Laterality: right Qualified Code(s): H66.91 - Otitis media, unspecified, right ear Condition: Good Instructions: ED Otitis Media Acute Adult Follow-Up: Brad Hines PA-C [Primary Care Provider] - Prescriptions: Amoxicillin 875 mg PO BID 10 Days #20 tablet Comments: Stop using the eardrops. Take the amoxicillin twice a day as prescribed. I would recommend probiotics while you are on the antibiotics and for 2 weeks after. You can continue with the hydrocodone for pain. Follow-up with your primary care provider if this is not improving in the next 48 to 72 hours.
[2019-04-12 14:10] VITALS: BP 130/93
== END 2019-04-12 14:10 | disposition home or self-care (01) ==
LOC: ED 13:31
DX: H66.91 Otitis media, unspecified, right ear (principal)
CPT/HCPCS: 99282; 99283

== ENCOUNTER 2019-05-05 15:40 | Outpatient (CLI) | payer MEDICAID ==
--- NOTE | 2019-05-06 10:01 | XRAY Report ---
Reason: WHEEZING, PRODUCTIVE COUGH, HX OF ACCIDENTAL FALL Procedure Date: 05/05/2019 Accession Number: [id number] / [id number] Procedure: XR - Chest 2 View X-Ray CPT Code: 75963 FULL RESULT: EXAM: CHEST RADIOGRAPHY EXAM DATE: 05/05/2019 03:44 PM. CLINICAL HISTORY: Wheezing, productive cough, history of accidental fall. COMPARISON: CHEST 2 VIEW 10/16/2018 4:27 PM. TECHNIQUE: 2 views. FINDINGS: Limited examination due to underpenetration and apical lordotic technique. Within these limitations: Lungs/Pleura: No focal opacities evident. No pleural effusion. No pneumothorax. Normal volumes. Mediastinum: Heart and mediastinal contours are unremarkable. Other: None. IMPRESSION: Limited examination with no acute cardiopulmonary abnormality. RADIA
--- NOTE | 2019-05-06 10:17 | XRAY Report ---
Reason: WHEEZING, PRODUCTIVE CAOUG, HX OF ACCIDENTAL FALL Procedure Date: 05/05/2019 Accession Number: [id number] / [id number] Procedure: XR - Hand 3 View RT CPT Code: FULL RESULT: EXAM: RIGHT HAND RADIOGRAPHY EXAM DATE: 05/05/2019 04:04 PM. CLINICAL HISTORY: Ground-level fall while getting into a wheelchair. Pain in thumb near the mid distal metacarpophalangeal joint. Decreased range of motion. COMPARISON: None. TECHNIQUE: 4 views. FINDINGS: Bones: Normal. No fractures or bone lesions. Joints: Normal. No subluxations. Soft Tissues: Normal. No soft tissue swelling. IMPRESSION: Normal hand radiography. RADIA
== END 2019-05-05 15:41 | disposition home or self-care (01) ==
LOC: DI 15:40
PROVIDERS: ATTEND Physician Assistant Medical
DX: R06.2 Wheezing (principal); R05 Cough; M79.644 Pain in right finger(s); Z91.81 History of falling
CPT/HCPCS: 71046

== ENCOUNTER 2019-05-24 20:09 | Emergency (ER) | payer MEDICAID ==
[2019-05-24] MEDS ORDERED: cefUROXime axetil 250 MG TABLET PO STA (22:45)
[2019-05-24] MEDS ORDERED: BENZONATATE 100 MG CAPSULE PO STA (22:45)
--- NOTE | 2019-05-24 22:47 | ED Physician Documentation ---
History of Present Illness - Stated complaint Stated Complaint: FEVER, COUGH, BILAT EAR PAIN - Chief complaint Chief Complaint: Fever - History obtained from History obtained from: Patient, Family - History of Present Illness Timing: Other (33-year-old gentleman with cerebral palsy has had troubles with ear infections lately. He complains of 4 days of left ear pain, also a productive cough and some fevers.) Review of Systems Constitutional: reports: Fever Ears: reports: Loss of hearing, Ear pain Nose: reports: Rhinorrhea / runny nose Throat: denies: Sore throat Respiratory: reports: Cough. denies: Dyspnea PD PAST MEDICAL HISTORY - Past Medical History Cardiovascular: None Respiratory: Asthma, Other Neuro: None Endocrine/Autoimmune: None GI: None : None HEENT: None Psych: None Musculoskeletal: Osteoporosis, Chronic back pain Derm: None - Past Surgical History Past Surgical History: Yes Ortho: Other - Present Medications Home Medications: Ambulatory Orders Medication Instructions Recorded Confirmed Baclofen 20 mg PO QID 11/18/12 05/24/19 Calcium Carbonate [Tums] 1 mg PO DAILY 11/18/12 05/24/19 Cholecalciferol (Vitamin D3) 400 unit PO DAILY 11/18/12 05/24/19 [Vitamin D] HYDROcod/ACETAM 5/325 [Vicodin 1 tab PO PRN PRN 11/18/12 05/24/19 5/325] Nebulizer and Compressor [Portable 1 each MC ONCE #1 each 07/27/18 05/24/19 Nebulizer System] Albuterol 2.5 mg INH Q4H PRN #30 neb 08/09/18 05/24/19 Albuterol Sulf [Ventolin Hfa 1 - 2 puffs INH Q4HR PRN #1 inhaler 10/16/18 05/24/19 Inhaler] Lisinopril 5 mg PO DAILY 12/29/18 05/24/19 Benzonatate [Tessalon Perle] 100 - 200 mg PO TID PRN #30 capsule 05/24/19 Cefdinir 300 mg PO BID #20 capsule 05/24/19 - Allergies Allergies/Adverse Reactions: Allergies Allergy/AdvReac Type Severity Reaction Status Date / Time celecoxib [From Celebrex] Allergy Itching Verified 05/24/19 20:42 chlorzoxazone Allergy Unknown Verified 05/24/19 20:42 gabapentin Allergy Hives Verified 05/24/19 20:42 ibuprofen [From Motrin IB] Allergy Rash Verified 05/24/19 20:42 - Social History Does the pt smoke?: No Smoking Status: Never smoker Does the pt drink ETOH?: No Does the pt have substance abuse?: No - Immunizations Immunizations are current?: Yes - POLST Patient has POLST: No PD ED PE NORMAL - Vitals Vital signs reviewed: Yes - General General: Alert and oriented X 3, Other (In a wheelchair, pleasant and oriented) - HEENT HEENT: Other (Right TM normal, left TM with moderate otitis media, no perforation) - Neck Neck: Supple, no meningeal sign, No bony TTP - Cardiac Cardiac: RRR, No murmur - Respiratory Respiratory: No respiratory distress, Clear bilaterally - Abdomen Abdomen: Non tender - Neuro Neuro: Alert and oriented X 3, Normal speech Results - Vitals Vitals: Vital Signs - 24 hr 05/24/19 20:36 Temperature 36.6 C Heart Rate 106 H Respiratory 22 Rate Blood Pressure 107/67 O2 Saturation 96 Oxygen O2 Source Room air Departure - Departure Disposition: 01 Home, Self Care Clinical Impression: Left otitis media with effusion Condition: Good Record reviewed to determine appropriate education?: Yes Instructions: ED Otitis Media Acute Adult Prescriptions: Benzonatate [Tessalon Perle] 100 - 200 mg PO TID PRN #30 capsule PRN Reason: Cough Cefdinir 300 mg PO BID #20 capsule Comments: Call your doctor to arrange a follow-up appointment, make the next available appointment. In the interim, return anytime if worse or if new symptoms devel op.
[2019-05-24 23:30] VITALS: BP 102/67
== END 2019-05-24 23:28 | disposition home or self-care (01) ==
LOC: ED 20:09
DX: H65.92 Unspecified nonsuppurative otitis media, left ear (principal); G80.9 Cerebral palsy, unspecified
CPT/HCPCS: 99282; 99283; A9270

== ENCOUNTER 2019-06-08 19:26 | Emergency (ER) | payer MEDICAID ==
--- NOTE | 2019-06-08 19:41 | ED Physician Documentation ---
History of Present Illness - Stated complaint Stated Complaint: FEVER,BILAT EAR PX - Chief complaint Chief Complaint: Fever - Additonal information Additional information: This is a 33 year old male with CP, recurrent ear infections, who presents with persistent ear pain. Pt was diagnosed with otitis media throughout the past month, and has been treated with a total of 4 rounds of antibiotics, most recently cefdinir. He has some mild relief with the abx, but then his ear pressure/pain recurs, and additionally he has had low grade fevers intermittently, often in the 99-low 100 range. He denies cough, chest pain, abdominal pain, dysuria. He has not seen and ENT. He did suffer from frequent ear infections as a child. Review of Systems Constitutional: reports: Fever Ears: reports: Ear pain GI: denies: Abdominal Pain : denies: Dysuria Skin: denies: Rash PD PAST MEDICAL HISTORY - Past Medical History Cardiovascular: None Respiratory: Asthma, Other Neuro: None Endocrine/Autoimmune: None GI: None : None HEENT: None Psych: None Musculoskeletal: Osteoporosis, Chronic back pain Derm: None - Past Surgical History Past Surgical History: Yes Ortho: Other - Present Medications Home Medications: Ambulatory Orders Medication Instructions Recorded Confirmed Baclofen 20 mg PO QID 11/18/12 05/24/19 Calcium Carbonate [Tums] 1 mg PO DAILY 11/18/12 05/24/19 Cholecalciferol (Vitamin D3) 400 unit PO DAILY 11/18/12 05/24/19 [Vitamin D] HYDROcod/ACETAM 5/325 [Vicodin 1 tab PO PRN PRN 11/18/12 05/24/19 5/325] Nebulizer and Compressor [Portable 1 each MC ONCE #1 each 07/27/18 05/24/19 Nebulizer System] Albuterol 2.5 mg INH Q4H PRN #30 neb 08/09/18 05/24/19 Albuterol Sulf [Ventolin Hfa 1 - 2 puffs INH Q4HR PRN #1 inhaler 10/16/18 05/24/19 Inhaler] Lisinopril 5 mg PO DAILY 12/29/18 05/24/19 Benzonatate [Tessalon Perle] 100 - 200 mg PO TID PRN #30 capsule 05/24/19 Cefdinir 300 mg PO BID #20 capsule 05/24/19 Levofloxacin [Levaquin] 500 mg PO DAILY #7 tablet 06/08/19 - Allergies Allergies/Adverse Reactions: Allergies Allergy/AdvReac Type Severity Reaction Status Date / Time celecoxib [From Celebrex] Allergy Itching Verified 06/08/19 19:30 chlorzoxazone Allergy Unknown Verified 06/08/19 19:30 gabapentin Allergy Hives Verified 06/08/19 19:30 ibuprofen [From Motrin IB] Allergy Rash Verified 06/08/19 19:30 - Social History Does the pt smoke?: No Smoking Status: Never smoker Does the pt drink ETOH?: No Does the pt have substance abuse?: No - Immunizations Immunizations are current?: Yes - POLST Patient has POLST: No PD ED PE NORMAL - Vitals Vital signs reviewed: Yes - General General: Alert and oriented X 3, Other (Pleasant male sitting in wheelchair, non-toxic appearing) - HEENT HEENT: Other (Bilateral bulging of the TMs, with suppurative effusion. External ear canals are normal in appearance. No mastoid tenderness. Normal ROM of neck. Oropharynx normal in appearance.) - Neck Neck: Supple, no meningeal sign - Cardiac Cardiac: Other (Mild tachycardia, regular rhythm.) - Respiratory Respiratory: No respiratory distress, Clear bilaterally - Abdomen Abdomen: Non tender - Neuro Neuro: Alert and oriented X 3 Results - Vitals Vitals: Vital Signs - 24 hr 06/08/19 06/08/19 06/08/19 19:30 20:09 21:33 Temperature 36.4 C L 37.1 C 36.7 C Heart Rate 115 H 107 H 105 H Respiratory 20 15 18 Rate Blood Pressure 136/84 H 157/82 H 124/83 H O2 Saturation 94 99 99 Oxygen O2 Source Room air - Labs Labs: Laboratory Tests 06/08/19 06/08/19 20:00 20:00 WBC 11.8 H RBC 5.55 Hgb 14.5 Hct 46.4 MCV 83.6 MCH 26.1 L MCHC 31.3 L RDW 14.1 Plt Count 331 MPV 10.0 Neut # (Auto) 8.8 H Lymph # (Auto) 1.8 [place] # (Auto) 0.9 Eos # (Auto) 0.1 Baso # (Auto) 0.0 Absolute Nucleated RBC 0.00 Nucleated RBC % 0.0 Sodium 135 Potassium 4.3 Chloride 101 Carbon Dioxide 25 Anion Gap 9.0 BUN 19 Creatinine 0.8 Estimated GFR (MDRD) 111 Glucose 279 H Calcium 9.0 - Rads (name of study) CXR Radiology: Other (No acute cardiopulmonary abnormality) PD MEDICAL DECISION MAKING - ED course Complexity details: considered differential (Otitis media, serous otitis, abx resistent infection, mastoiditis, PNA) ED course: Pt has bilateral otitis media on exam, no signs of otitis externa. No signs of deep space infection, no symptoms or exam findings to suggest sinusitis, mastoiditis. Given the recurrent nature of his complaints labs and CXR obtained to assess for other potential causes of his fever/symptoms. CXR unremarkable, labs did show a very mild leukocytosis and elevated glucose. He has not been diagnosed with diabetes in the past. I discussed this lab result and the need for close PCP follow up and repeat labs/testing. I also discussed he needs to see and ENT given the chronicity of his infections. We will cover with levofloxacin for now given his failure of cefdinir, I did discuss black box warnings with patient and his family. First dose was given here. Return precautions reviewed and patient was discharged home. Departure - Departure Disposition: 01 Home, Self Care Clinical Impression: Otitis media Qualifiers: Otitis media type: suppurative Chronicity: acute Laterality: bilateral Recurrence: recurrent Spontaneous tympanic membrane rupture: without spontaneous rupture Qualified Code(s): H66.006 - Acute suppurative otitis media without spontaneous rupture of ear drum, recurrent, bilateral Condition: Good Instructions: ED Otitis Media Acute Adult Follow-Up: Adelfo Lang MD [Physician No Access] - Prescriptions: Levofloxacin [Levaquin] 500 mg PO DAILY #7 tablet Comments: You have infections in both ears. You also have a blood glucose of 270, and I'm concerned you may have diabetes. This needs to be rechecked and you may need to start medications. Please follow-up with your primary care provider within the week for repeat testing Including hemoglobin A1c and glucose levels. Please take the new antibiotic as prescribed. You also need to see an ENT specialist, given that you have had recurrent ear infections that have not responded well to antibiotics so far. You may follow-up with Dr. Lang, or another ENT doctor of your choice. If you develop worsening symptoms such as confusion, high fever, swelling around the ears, return to the emergency department. Discharge Date/Time: 06/08/19 21:47
[2019-06-08 20:06] LABS: BASOPHILS % (AUTO) 0.3 %; EOSINOPHILS # (AUTO) 0.1 10^3/uL (0.0-0.7); EOSINOPHILS % (AUTO) 1.1 %; HGB - HEMOGLOBIN 14.5 g/dL (14.0-18.0); LYMPHOCYTES # (AUTO) 1.8 10^3/uL (1.5-3.5); LYMPHOCYTES % (AUTO) 15.3 %; MEAN CORPUSCULAR HEMOGLOBIN 26.1 pg (27.0-31.0); MEAN CORPUSCULAR HGB CONC 31.3 g/dL (32.0-36.0); MEAN CORPUSCULAR VOLUME 83.6 fL (80.0-94.0); MONOCYTES # (AUTO) 0.9 10^3/uL (0.0-1.0); MONOCYTES % (AUTO) 7.8 %; NEUTROPHILS # (AUTO) 8.8 10^3/uL (1.5-6.6); NEUTROPHILS % (AUTO) 74.7 %; PLT - PLATELET COUNT 331 10^3/uL (130-450); RED BLOOD COUNT 5.55 10^6/uL (4.70-6.10); RED CELL DISTRIBUTION WIDTH 14.1 % (12.0-15.0); WHITE BLOOD COUNT 11.8 x10^3/uL (4.8-10.8)
[2019-06-08 20:24] LABS: CREATININE 0.8 mg/dL (0.6-1.2)
--- NOTE | 2019-06-08 20:47 | XRAY Report ---
Reason: chest pain Procedure Date: 06/08/2019 Accession Number: [id number] / [id number] Procedure: XR - Chest 1 View X-Ray CPT Code: 90441 Final Report FULL RESULT: EXAM: CHEST RADIOGRAPHY EXAM DATE: 06/08/2019 08:22 PM. CLINICAL HISTORY: Chest pain. COMPARISON: CHEST 2 VIEW 05/05/2019 3:44 PM. TECHNIQUE: 1 view. FINDINGS: Lungs/Pleura: No focal opacities evident. No pleural effusion. No pneumothorax. Mediastinum: Within exam limitations, the cardiomediastinal contour is normal. Other: None. IMPRESSION: Negative chest RADIA
[2019-06-08] MEDS ORDERED: ONDANSETRON ODT 4 MG TABLET TL STA (21:25)
[2019-06-08] MEDS ORDERED: levoFLOXacin 250 MG TABLET PO STA (21:26)
[2019-06-08 21:33] VITALS: BP 124/83
== END 2019-06-08 21:47 | disposition home or self-care (01) ==
LOC: ED 19:26
DX: H66.006 Acute suppurative otitis media without spontaneous rupture of ear drum, recurrent, bilateral (principal); R73.9 Hyperglycemia, unspecified; G80.9 Cerebral palsy, unspecified
CPT/HCPCS: 36415; 71045; 80048; 85025; 99283; 99284; A9270; Q0162

== ENCOUNTER 2019-07-19 19:45 | Emergency (ER) | payer MEDICAID ==
[2019-07-19] MEDS ORDERED: CIPROFLOXACIN 250 MG TABLET PO STA (21:48)
[2019-07-19] MEDS ORDERED: oxyCODONE 5 MG TABLET PO STA (21:51)
--- NOTE | 2019-07-19 22:06 | ED Physician Documentation ---
History of Present Illness - Stated complaint Stated Complaint: L EAR/FACE SWELLING - Chief complaint Chief Complaint: Heent - History obtained from History obtained from: Patient, Family - History of Present Illness Pain level max: 10 Pain level now: 10 - Additonal information Additional information: 33-year-old male presents to the emergency department with left ear pain that started today. He had been treated recently for 3 to 4 weeks with topical antibiotics for an external ear infection. States the outer portion of his ear became red and swollen today. No fevers. No rhinorrhea or congestion. No trauma. Worse with palpation, nothing makes it better. Review of Systems Constitutional: denies: Fever, Chills Nose: denies: Rhinorrhea / runny nose, Congestion Throat: denies: Sore throat GI: denies: Vomiting, Diarrhea Skin: denies: Rash Musculoskeletal: denies: Neck pain, Back pain Neurologic: denies: Headache PD PAST MEDICAL HISTORY - Past Medical History Past Medical History: Yes Cardiovascular: None Respiratory: Asthma, Other Neuro: None Endocrine/Autoimmune: None GI: None : None HEENT: None Psych: None Musculoskeletal: Osteoporosis, Chronic back pain Derm: None - Past Surgical History Past Surgical History: Yes Ortho: Other - Present Medications Home Medications: Ambulatory Orders Medication Instructions Recorded Confirmed Baclofen 20 mg PO QID 11/18/12 05/24/19 Calcium Carbonate [Tums] 1 mg PO DAILY 11/18/12 05/24/19 Cholecalciferol (Vitamin D3) 400 unit PO DAILY 11/18/12 05/24/19 [Vitamin D] HYDROcod/ACETAM 5/325 [Vicodin 1 tab PO PRN PRN 11/18/12 05/24/19 5/325] Nebulizer and Compressor [Portable 1 each MC ONCE #1 each 07/27/18 05/24/19 Nebulizer System] Albuterol 2.5 mg INH Q4H PRN #30 neb 08/09/18 05/24/19 Albuterol Sulf [Ventolin Hfa 1 - 2 puffs INH Q4HR PRN #1 inhaler 10/16/18 05/24/19 Inhaler] lisinopriL [Lisinopril] 5 mg PO DAILY 12/29/18 05/24/19 Benzonatate [Tessalon Perle] 100 - 200 mg PO TID PRN #30 capsule 05/24/19 Cefdinir 300 mg PO BID #20 capsule 05/24/19 Levofloxacin [Levaquin] 500 mg PO DAILY #7 tablet 06/08/19 Ciprofloxacin [Cipro] 750 mg PO Q12H #60 tablet 07/19/19 Oxycodone HCl/Acetaminophen 1 - 2 each PO Q6H PRN #14 tablet 07/19/19 [Percocet 5-325 mg Tablet] - Allergies Allergies/Adverse Reactions: Allergies Allergy/AdvReac Type Severity Reaction Status Date / Time celecoxib [From Celebrex] Allergy Itching Verified 07/19/19 19:56 chlorzoxazone Allergy Unknown Verified 07/19/19 19:56 gabapentin Allergy Hives Verified 07/19/19 19:56 ibuprofen [From Motrin IB] Allergy Rash Verified 07/19/19 19:56 - Social History Does the pt smoke?: No Smoking Status: Never smoker Does the pt drink ETOH?: No Does the pt have substance abuse?: No - Immunizations Immunizations are current?: Yes - POLST Patient has POLST: No PD ED PE NORMAL - Vitals Vital signs reviewed: Yes - General General: Alert and oriented X 3, No acute distress, Well developed/nourished, Other (Patient in a wheelchair) - HEENT HEENT: PERRL, Moist mucous membranes, Other (Right ear is normal. Left TM is unable to be visualized. The pinna is erythematous, edematous and tender to palpation. The earlobe is spared. No mastoid tenderness.) - Neck Neck: Supple, no meningeal sign, No adenopathy - Cardiac Cardiac: RRR - Respiratory Respiratory: No respiratory distress, Clear bilaterally - Abdomen Abdomen: Soft, Non tender, Non distended - Derm Derm: Warm and dry - Neuro Neuro: Alert and oriented X 3 - Psych Psych: Normal mood, Normal affect Results - Vitals Vitals: Vital Signs - 24 hr 07/19/19 07/19/19 19:54 22:35 Temperature 36.9 C 36.8 C Heart Rate 113 H 99 Respiratory 18 18 Rate Blood Pressure 146/99 H 144/100 H O2 Saturation 95 97 Oxygen O2 Source Room air PD MEDICAL DECISION MAKING - ED course Complexity details: considered differential, d/w patient, d/w family, d/w product safety consultant ED course: Patient appears to have perichondritis. Will start on ciprofloxacin and p rescribe pain medication for home. He will follow-up with the ENT in the morning. I discussed the case with Dr. Lang, ENT on-call. Patient counseled regarding signs and symptoms for which I believe and urgent re-evaluation would be necessary. Patient with good understanding of and agreement to plan and is comfortable going home at this time This document was made in part using voice recognition software. While efforts are made to proofread this document, sound alike and grammatical errors may occur. Departure - Departure Disposition: Home, Self Care Clinical Impression: Perichondritis Condition: Good Instructions: ED Otitis Externa Follow-Up: Brad Hines PA-C [Primary Care Provider] - [facility] [Provider Group] Prescriptions: Ciprofloxacin [Cipro] 750 mg PO Q12H #60 tablet Oxycodone HCl/Acetaminophen [Percocet 5-325 mg Tablet] 1 - 2 each PO Q6H PRN #14 tablet PRN Reason: pain Comments: Take all antibiotics until gone. Return if you worsen. You need to follow-up with ENT tomorrow. I spoke with Dr. Rickey owens. Call the office first thing in the morning. Do not drink alcohol or drive while on narcotic pain medicine. Note that many narcotic pain relievers also contain tylenol/acetaminophen. Please ensure that your total dose of acetaminophen from all sources does not exceed 3 grams (3000mg) per day. You may constipated on this medication, take a stool softener such as "Colace" twice a day while you are on it. Also recommend a maff-mqr-wqclptn laxative such as senna or MiraLAX any day that you do not have a bowel movement. If you received narcotic pain medication in the emergency department, do not drive or operate machinery for the next 24 hours. Discharge Date/Time: 07/19/19 22:35
[2019-07-19 22:53] VITALS: BP 144/100
== END 2019-07-19 22:35 | disposition home or self-care (01) ==
LOC: ED 19:45
DX: H61.002 Unspecified perichondritis of left external ear (principal)
CPT/HCPCS: 99282; 99284; A9270

== ENCOUNTER 2019-07-28 14:00 | Emergency (ER) | payer MEDICAID ==
--- NOTE | 2019-07-28 14:30 | ED Physician Documentation ---
PD HPI URI - Stated complaint Stated Complaint: SOA,COUGH - Chief complaint Chief Complaint: Resp - History obtained from History obtained from: Patient - History of Present Illness Timing - onset: How many days ago (few) Timing duration: Days (few) Timing details: Gradual onset, Still present Associated symptoms: Chills, Nasal congestion, Sore throat, Productive cough. No: Fever Contributing factors: COPD / asthma. No: Sick contact, Travel, Immunocompromised Similar symptoms before: Diagnosis (Typically stable asthma without need for regular inhaler or nebulizer. He does get wheeze and trouble breathing with infections.) Recently seen: Not recently seen Review of Systems Constitutional: reports: Chills, Myalgias. denies: Fever Nose: reports: Congestion. denies: Rhinorrhea / runny nose Throat: denies: Sore throat Cardiac: reports: Chest pain / pressure (hurts with coughing). denies: Palpitations Respiratory: reports: Dyspnea, Cough, Wheezing GI: denies: Abdominal Pain, Nausea, Vomiting, Diarrhea Neurologic: reports: Generalized weakness. denies: Focal weakness, Numbness PD PAST MEDICAL HISTORY - Past Medical History Cardiovascular: None Respiratory: Asthma, Other Neuro: None Endocrine/Autoimmune: None GI: None : None HEENT: None Psych: None Musculoskeletal: Osteoporosis, Chronic back pain Derm: None - Past Surgical History Past Surgical History: Yes Ortho: Other - Present Medications Home Medications: Ambulatory Orders Medication Instructions Recorded Confirmed Baclofen 20 mg PO QID 11/18/12 05/24/19 Calcium Carbonate [Tums] 1 mg PO DAILY 11/18/12 05/24/19 Cholecalciferol (Vitamin D3) 400 unit PO DAILY 11/18/12 05/24/19 [Vitamin D] HYDROcod/ACETAM 5/325 [Vicodin 1 tab PO PRN PRN 11/18/12 05/24/19 5/325] Nebulizer and Compressor [Portable 1 each MC ONCE #1 each 07/27/18 05/24/19 Nebulizer System] Albuterol 2.5 mg INH Q4H PRN #30 neb 08/09/18 05/24/19 Albuterol Sulf [Ventolin Hfa 1 - 2 puffs INH Q4HR PRN #1 inhaler 10/16/18 05/24/19 Inhaler] lisinopriL [Lisinopril] 5 mg PO DAILY 12/29/18 05/24/19 Benzonatate [Tessalon Perle] 100 - 200 mg PO TID PRN #30 capsule 05/24/19 Cefdinir 300 mg PO BID #20 capsule 05/24/19 Levofloxacin [Levaquin] 500 mg PO DAILY #7 tablet 06/08/19 Ciprofloxacin [Cipro] 750 mg PO Q12H #60 tablet 07/19/19 Oxycodone HCl/Acetaminophen 1 - 2 each PO Q6H PRN #14 tablet 07/19/19 [Percocet 5-325 mg Tablet] Benzonatate [Tessalon Perle] 100 - 200 mg PO TID PRN #30 capsule 07/28/19 Cephalexin [Keflex] 500 mg PO TID #21 capsule 07/28/19 Hydrocodone/Acetaminophen [[place]ang[place] 1 each PO Q6H PRN #20 tablet 07/28/19 5-325 Tablet] dexAMETHasone [Decadron] 4 mg PO DAILY #5 tablet 07/28/19 - Allergies Allergies/Adverse Reactions: Allergies Allergy/AdvReac Type Severity Reaction Status Date / Time celecoxib [From Celebrex] Allergy Itching Verified 07/28/19 14:01 chlorzoxazone Allergy Unknown Verified 07/28/19 14:01 gabapentin Allergy Hives Verified 07/28/19 14:01 ibuprofen [From Motrin IB] Allergy Rash Verified 07/28/19 14:01 - Social History Does the pt smoke?: No Smoking Status: Never smoker Does the pt drink ETOH?: No Does the pt have substance abuse?: No - Immunizations Immunizations are current?: Yes - POLST Patient has POLST: No PD ED PE NORMAL - Vitals Vital signs reviewed: Yes - General General: Alert and oriented X 3, No acute distress, Well developed/nourished - HEENT HEENT: Pharynx benign. No: Ears normal (left is normal; right with fluid behind TM but minimal redness. ) - Neck Neck: Supple, no meningeal sign, No adenopathy - Cardiac Cardiac: No murmur. No: RRR (regular but mild tachycardic) - Respiratory Respiratory: No respiratory distress. No: Clear bilaterally (No coarse sounds nor fine crackles. There is expiratory wheezing noted diffusely. No accessory muscle use.) - Abdomen Abdomen: Soft, Non tender - Derm Derm: Normal color, Warm and dry - Extremities Extremities: No edema, No calf tenderness / cord - Neuro Neuro: Alert and oriented X 3, Normal speech, Other (leg weakness baseline. ) Results - Vitals Vitals: Vital Signs - 24 hr 07/28/19 07/28/19 14:01 14:55 Temperature 36.8 C Heart Rate 116 H 113 H Respiratory 18 22 Rate Blood Pressure 146/100 H O2 Saturation 94 Oxygen O2 Source Room air - Rads (name of study) chest xray Radiology: Prelim report reviewed (No acute infiltrates.), See rad report PD MEDICAL DECISION MAKING - ED course Complexity details: considered differential, d/w patient Departure - Departure Disposition: Home, Self Care Clinical Impression: Upper respiratory infection Qualifiers: URI type: unspecified URI Qualified Code(s): J06.9 - Acute upper respiratory infection, unspecified Dyspnea Qualifiers: Dyspnea type: shortness of breath Qualified Code(s): R06.02 - Shortness of breath Exacerbation of asthma Qualifiers: Asthma severity: mild Asthma persistence: intermittent Qualified Code(s): J45.21 - Mild intermittent asthma with (acute) exacerbation Serous otitis media Qualifiers: Chronicity: acute Laterality: right Recurrence: non-recurrent Qualified Code(s): H65.01 - Acute serous otitis media, right ear Condition: Stable Record reviewed to determine appropriate education?: Yes Instructions: ED Upper Resp Infec Abx Tx Follow-Up: Brad Hines PA-C [Primary Care Provider] - Prescriptions: Benzonatate [Tessalon Perle] 100 - 200 mg PO TID PRN #30 capsule PRN Reason: Cough Cephalexin [Keflex] 500 mg PO TID #21 capsule dexAMETHasone [Decadron] 4 mg PO DAILY #5 tablet Hydrocodone/Acetaminophen [[place] 5-325 Tablet] 1 each PO Q6H PRN #20 tablet PRN Reason: Pain Comments: Your chest x-ray is clear without any signs of pneumonia. We will treat this as upper respiratory infection/bronchitis. Continue your nebulizer at home 3-4 times a day for the next week. Benzonatate as needed for cough. Hydrocodone if needed for cough suppression or pain. Decadron steroid for bronchial inflammation daily for the next 5 days. Cephalexin antibiotic 3 times a day for the next week. Recheck if not improving well over the next few days and return if worsening.
[2019-07-28] MEDS ORDERED: IPRATROPIUM/ALBUTEROL 3 ML NEB INH STA (14:42)
[2019-07-28] MEDS ORDERED: DEXAMETHASONE 10 MG/ML VIAL PO STA (14:43)
[2019-07-28] MEDS ORDERED: BENZONATATE 100 MG CAPSULE PO STA (14:43)
[2019-07-28] MEDS ORDERED: CHERRY SYRUP 10 ML UDC PO ONE (14:43)
[2019-07-28] MEDS ORDERED: cephALEXin 250 MG CAPSULE PO STA (14:44)
[2019-07-28] MEDS ORDERED: HYDROmorphone 1 MG/ML CARPUJECT IM STA (14:44)
--- NOTE | 2019-07-28 15:08 | XRAY Report ---
Reason: cough, dyspnea Procedure Date: 07/28/2019 Accession Number: [id number] / [id number] Procedure: XR - Chest 1 View X-Ray CPT Code: 78861 Final Report FULL RESULT: EXAM: CHEST RADIOGRAPHY EXAM DATE: 07/28/2019 03:00 PM. CLINICAL HISTORY: Cough, dyspnea. COMPARISON: CHEST 1 VIEW 06/08/2019 8:01 PM. TECHNIQUE: Upright AP view x2. FINDINGS: Lungs/Pleura: Lung volumes are low. No focal opacities evident. No peribronchial cuffing or interstitial abnormality. No pleural effusion. No pneumothorax. Mediastinum: Within exam limitations, the cardiomediastinal contour is normal. Other: None. IMPRESSION: Normal single view chest. RADIA
[2019-07-28 16:06] VITALS: BP 151/90
== END 2019-07-28 16:06 | disposition home or self-care (01) ==
LOC: ED 14:00
DX: J06.9 Acute upper respiratory infection, unspecified (principal); J45.21 Mild intermittent asthma with (acute) exacerbation; H65.01 Acute serous otitis media, right ear
CPT/HCPCS: 71045; 94640; 96372; 99283; 99284; A9270; J1170

== ENCOUNTER 2019-08-06 08:00 | Outpatient (CLI) | payer MEDICAID ==
[2019-08-06 19:42] LABS: HB2 TOTAL 15.9 g/dL; HEMOGLOBIN A1C 1.19 g/dL
== END 2019-08-06 23:59 | disposition home or self-care (01) ==
LOC: LAB.WCP 08:00
PROVIDERS: ATTEND Physician Assistant Medical
DX: R73.9 Hyperglycemia, unspecified (principal)
CPT/HCPCS: 36415; 83036

== ENCOUNTER 2019-10-02 07:18 | Emergency (ER) | payer MEDICAID ==
--- NOTE | 2019-10-02 07:28 | ED Physician Documentation ---
PD HPI HEENT - Stated complaint Stated Complaint: R EAR PX - History obtained from History obtained from: Patient - History of Present Illness Timing - onset: Yesterday (He started with some pain in the right ear that was much worse this morning upon awakening and noted to be swollen and tender on the ear and deeper pain as well.) Timing - duration: Days (1) Timing - details: Abrupt onset, Still present Location: Right ear. No: Sinuses, Throat Worsens: Position Associated symptoms: No: Fever, Congestion, Swollen nodes Similar symptoms before: Diagnosis (He had had a similar condition believe of the other ear a couple months ago and treated with several antibiotics initially and subsequently went away with Cipro oral antibiotic. They did see a ENT specialist about it but it was resolved at that time and no further recommendations were given. They were to follow-up if recurrent episodes. The diagnoses at that time were otitis externa with perichondritis.) Review of Systems Constitutional: denies: Fever, Chills Nose: denies: Rhinorrhea / runny nose, Congestion Throat: denies: Sore throat Respiratory: denies: Cough GI: denies: Vomiting Musculoskeletal: denies: Neck pain PD PAST MEDICAL HISTORY - Past Medical History Cardiovascular: None Respiratory: Asthma, Other Neuro: None Endocrine/Autoimmune: None GI: None : None HEENT: None Psych: None Musculoskeletal: Osteoporosis, Chronic back pain Derm: None - Past Surgical History Past Surgical History: Yes Ortho: Other - Present Medications Home Medications: Ambulatory Orders Medication Instructions Recorded Confirmed Baclofen 20 mg PO QID 11/18/12 05/24/19 Calcium Carbonate [Tums] 1 mg PO DAILY 11/18/12 05/24/19 Cholecalciferol (Vitamin D3) 400 unit PO DAILY 11/18/12 05/24/19 [Vitamin D] HYDROcod/ACETAM 5/325 [Vicodin 1 tab PO PRN PRN 11/18/12 05/24/19 5/325] Nebulizer and Compressor [Portable 1 each MC ONCE #1 each 07/27/18 05/24/19 Nebulizer System] Albuterol 2.5 mg INH Q4H PRN #30 neb 08/09/18 05/24/19 Albuterol Sulf [Ventolin Hfa 1 - 2 puffs INH Q4HR PRN #1 inhaler 10/16/18 05/24/19 Inhaler] lisinopriL [Lisinopril] 5 mg PO DAILY 12/29/18 05/24/19 Benzonatate [Tessalon Perle] 100 - 200 mg PO TID PRN #30 capsule 05/24/19 Cefdinir 300 mg PO BID #20 capsule 05/24/19 Levofloxacin [Levaquin] 500 mg PO DAILY #7 tablet 06/08/19 Ciprofloxacin [Cipro] 750 mg PO Q12H #60 tablet 07/19/19 Oxycodone HCl/Acetaminophen 1 - 2 each PO Q6H PRN #14 tablet 07/19/19 [Percocet 5-325 mg Tablet] Benzonatate [Tessalon Perle] 100 - 200 mg PO TID PRN #30 capsule 07/28/19 Cephalexin [Keflex] 500 mg PO TID #21 capsule 07/28/19 Hydrocodone/Acetaminophen [[place] 1 each PO Q6H PRN #20 tablet 07/28/19 5-325 Tablet] dexAMETHasone [Decadron] 4 mg PO DAILY #5 tablet 07/28/19 Ciprofloxacin HCl [Cipro] 500 mg PO BID #14 tablet 10/02/19 Clotrimazole 4 drops EACHEAR TID #10 ml 10/02/19 - Allergies Allergies/Adverse Reactions: Allergies Allergy/AdvReac Type Severity Reaction Status Date / Time celecoxib [From Celebrex] Allergy Itching Verified 10/02/19 07:24 chlorzoxazone Allergy Unknown Verified 10/02/19 07:24 gabapentin Allergy Hives Verified 10/02/19 07:24 ibuprofen [From Motrin IB] Allergy Rash Verified 10/02/19 07:24 - Social History Does the pt smoke?: No Smoking Status: Never smoker Does the pt drink ETOH?: No Does the pt have substance abuse?: No - Immunizations Immunizations are current?: Yes - POLST Patient has POLST: No PD ED PE NORMAL - Vitals Vital signs reviewed: Yes - General General: Alert and oriented X 3, Well developed/nourished - HEENT HEENT: Pharynx benign. No: Ears normal (left ear normal. Right ear with redness and swelling of outer ear and pinna, as well as lateral half of the ear canal. Mild rendess of the TM but not bulging. No exudate in the canal, but some inflammation of the mid canal. ) - Neck Neck: Supple, no meningeal sign, No adenopathy - Cardiac Cardiac: RRR, No murmur - Respiratory Respiratory: Clear bilaterally - Abdomen Abdomen: Soft, Non tender Results - Vitals Vitals: Vital Signs - 24 hr 10/02/19 10/02/19 07:24 07:29 Temperature 36.4 C L Heart Rate 109 H 106 H Respiratory 20 20 Rate Blood Pressure 187/172 H 154/105 H O2 Saturation 100 96 Oxygen O2 Source Room air PD MEDICAL DECISION MAKING - ED course Complexity details: reviewed old records (Appears to be similar condition couple of months ago on the other ear treated with Cipro orally. That seemed to be one that helped so we will use that again.), considered differential (Cellulitic appearance of the right ear with some general inflammation and tenderness. Ear canal appears red and swollen as well. The eardrum is minimally red. There is no exudate noted in the canal.), d/w patient, d/w family Departure - Departure Disposition: 01 Home, Self Care Clinical Impression: Perichondritis Otitis externa Qualifiers: Otitis externa type: diffuse Chronicity: acute Laterality: right Qualified Code(s): H60.311 - Diffuse otitis externa, right ear Condition: Stable Record reviewed to determine appropriate education?: Yes Instructions: ED Cellulitis Facial, ED Otitis Externa Follow-Up: Brad Hines PA-C [Primary Care Provider] - Prescriptions: Ciprofloxacin HCl [Cipro] 500 mg PO BID #14 tablet Clotrimazole 4 drops EACHEAR TID #10 ml Comments: Use the ciprofloxacin antibiotic twice daily for a week. This is the one that was prescribed last time that seemed to finally work. Additionally the ear canal infections like this can sometimes start from just improper drainage or collection of fluid and started as a bit of a yeast infection in the canal which then gets bacterial infection also. So use the Chlortrimazole antifungal eardrops 3 times a day in both ears for the next 4 to 5 days. Continue pain medicine as needed. Follow-up with the nurse researcher if not improved well over the next few days. Discharge Date/Time: 10/02/19 07:59
[2019-10-02] MEDS ORDERED: oxyCODONE 5 MG TABLET PO STA (07:38)
[2019-10-02] MEDS ORDERED: FLUCONAZOLE 100 MG TABLET PO STA (07:38)
[2019-10-02] MEDS ORDERED: CIPROFLOXACIN 250 MG TABLET PO STA (07:38)
[2019-10-02 07:40] VITALS: BP 154/105
== END 2019-10-02 07:59 | disposition home or self-care (01) ==
LOC: ED 07:18
DX: H61.001 Unspecified perichondritis of right external ear (principal); H60.311 Diffuse otitis externa, right ear
CPT/HCPCS: 99282; 99284; A9270

== ENCOUNTER 2020-02-10 05:15 | Emergency (ER) | payer MEDICAID ==
--- NOTE | 2020-02-10 05:24 | ED Physician Documentation ---
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 denies: Loss of hearing, Drainage/discharge PD PAST MEDICAL HISTORY - Past Medical History Cardiovascular: None Respiratory: Asthma, Other Neuro: None Endocrine/Autoimmune: None GI: None : None HEENT: None Psych: None Musculoskeletal: Osteoporosis, Chronic back pain Derm: None - Past Surgical History Past Surgical History: Yes Ortho: Other - Present Medications Home Medications: Ambulatory Orders Medication Instructions Recorded Confirmed Baclofen 20 mg PO QID 11/18/12 02/10/20 Calcium Carbonate [Tums] 1 mg PO DAILY 11/18/12 02/10/20 Cholecalciferol (Vitamin D3) 400 unit PO DAILY 11/18/12 02/10/20 [Vitamin D] Nebulizer and Compressor [Portable 1 each MC ONCE #1 each 07/27/18 02/10/20 Nebulizer System] Albuterol 2.5 mg INH Q4H PRN #30 neb 08/09/18 02/10/20 Albuterol Sulf [Ventolin Hfa 1 - 2 puffs INH Q4HR PRN #1 inhaler 10/16/18 02/10/20 Inhaler] lisinopriL [Lisinopril] 5 mg PO DAILY 12/29/18 02/10/20 Hydrocodone/Acetaminophen [[place] 1 each PO Q6H PRN #20 tablet 07/28/19 02/10/20 5-325 Tablet] Ciprofloxacin HCl [Cipro] 500 mg PO BID #19 tablet 02/10/20 Oxycodone HCl/Acetaminophen 1 - 2 each PO Q6H PRN #14 tablet 02/10/20 [Percocet 5-325 mg Tablet] - Allergies Allergies/Adverse Reactions: Allergies Allergy/AdvReac Type Severity Reaction Status Date / Time celecoxib [From Celebrex] Allergy Itching Verified 02/10/20 05:22 chlorzoxazone Allergy Unknown Verified 02/10/20 05:22 gabapentin Allergy Hives Verified 02/10/20 05:22 ibuprofen [From Motrin IB] Allergy Rash Verified 02/10/20 05:22 - Social History Does the pt smoke?: No Smoking Status: Never smoker Does the pt drink ETOH?: No Does the pt have substance abuse?: No - Immunizations Immunizations are current?: Yes - POLST Patient has POLST: No PD ED PE NORMAL - Vitals Vital signs reviewed: Yes - General General: Alert and oriented X 3, No acute distress, Well developed/nourished, Other (appears uncomfortable due to pain) - HEENT HEENT: Other (right ear (auricle) is swollen and erythematous, tender; no fluctuance. external auditory canal is mild/moderate inflamed but patent. tm has trace erythema) - Neck Neck: Supple, no meningeal sign Results - Vitals Vitals: Vital Signs - 24 hr 02/10/20 02/10/20 05:15 05:55 Temperature 36.4 C L Heart Rate 108 H 100 Respiratory 16 16 Rate Blood Pressure 176/136 H 147/114 H O2 Saturation 95 95 Oxygen O2 Source Room air PD MEDICAL DECISION MAKING - ED course Complexity details: reviewed old records, considered differential, d/w patient Departure - Departure Disposition: 01 Home, Self Care Clinical Impression: Perichondritis of ear Qualifiers: Laterality: right Qualified Code(s): H61.001 - Unspecified perichondritis of right external ear Condition: Good Instructions: ED Otitis Externa Prescriptions: Ciprofloxacin HCl [Cipro] 500 mg PO BID #19 tablet Oxycodone HCl/Acetaminophen [Percocet 5-325 mg Tablet] 1 - 2 each PO Q6H PRN #14 tablet PRN Reason: pain Discharge Date/Time: 02/10/20 05:55
[2020-02-10] MEDS ORDERED: oxyCODONE 5 MG TABLET PO STA (05:40)
[2020-02-10] MEDS ORDERED: CIPROFLOXACIN 250 MG TABLET PO STA (05:40)
[2020-02-10 06:17] VITALS: BP 147/114
== END 2020-02-10 05:55 | disposition home or self-care (01) ==
LOC: ED 05:15
DX: H61.001 Unspecified perichondritis of right external ear (principal)
CPT/HCPCS: 99282; 99283; A9270

== ENCOUNTER 2020-08-20 17:34 | Emergency (ER) | payer MEDICAID ==
[2020-08-20] MEDS ORDERED: BUFFERED LIDOCAINE 10 ML SYRINGE SUBQ STA (18:18)
--- NOTE | 2020-08-20 18:24 | ED Physician Documentation ---
History of Present Illness - Stated complaint Stated Complaint: FEVER/RASH/RT EAR PX - Chief complaint Chief Complaint: Fever - Additonal information Additional information: 34-year-old male who has a history of cerebral palsy, diabetes and asthma presents to the emergency department for evaluation of 1 week of intermittent fevers. They range between 100.2-100.8. He is also been increasingly wheezy but has not been able to find his inhaler. He denies abdominal pain, cough or vomiting. He denies dysuria. He however has noticed a rash in the skin folds of his posterior neck. In addition to this he feels that he has an abscess deve loping on his left lower abdomen. He is mostly wheelchair-bound though he can stand to transfer from bed to chair etc. Review of Systems Constitutional: reports: Fever, Chills Eyes: reports: Reviewed and negative Ears: reports: Ear pain (right ear) Nose: reports: Reviewed and negative Throat: reports: Reviewed and negative Cardiac: denies: Pedal edema Respiratory: reports: Dyspnea, Cough, Wheezing. denies: Hemoptysis GI: denies: Abdominal Pain, Constipation, Diarrhea : denies: Dysuria Skin: reports: Lesions (abscess/cellulitis left lower abdomen) Neurologic: reports: Generalized weakness PD PAST MEDICAL HISTORY - Past Medical History Cardiovascular: None Respiratory: Asthma, Other Neuro: None Endocrine/Autoimmune: None GI: None : None HEENT: None Psych: None Musculoskeletal: Osteoporosis, Chronic back pain Derm: None - Past Surgical History Past Surgical History: Yes Ortho: Other - Present Medications Home Medications: Ambulatory Orders Medication Instructions Recorded Confirmed Baclofen 20 mg PO QID 11/18/12 02/10/20 Calcium Carbonate [Tums] 1 mg PO DAILY 11/18/12 02/10/20 Cholecalciferol (Vitamin D3) 400 unit PO DAILY 11/18/12 02/10/20 [Vitamin D] Nebulizer and Compressor [Portable 1 each MC ONCE #1 each 07/27/18 02/10/20 Nebulizer System] Albuterol 2.5 mg INH Q4H PRN #30 neb 08/09/18 02/10/20 Albuterol Sulf [Ventolin Hfa 1 - 2 puffs INH Q4HR PRN #1 inhaler 10/16/18 02/10/20 Inhaler] lisinopriL [Lisinopril] 5 mg PO DAILY 12/29/18 02/10/20 Hydrocodone/Acetaminophen [[place] 1 each PO Q6H PRN #20 tablet 07/28/19 02/10/20 5-325 Tablet] Ciprofloxacin HCl [Cipro] 500 mg PO BID #19 tablet 02/10/20 Oxycodone HCl/Acetaminophen 1 - 2 each PO Q6H PRN #14 tablet 02/10/20 [Percocet 5-325 mg Tablet] Albuterol Sulfate [Proair 90 mcg IH TID PRN #1 aer.pow.ba 08/20/20 Respiclick] Hydrocortisone 1% Oint 28 gm TP BID #1 oint...g. 08/20/20 [Hydrocortisone] Miconazole Nitrate [Miconazole 3] 25 gm VG BID #1 cream.appl 08/20/20 Sulfamethox/Trimeth 800/160 1 each PO BID #14 tablet 08/20/20 [Bactrim Ds 800/160] - Allergies Allergies/Adverse Reactions: Allergies Allergy/AdvReac Type Severity Reaction Status Date / Time celecoxib [From Celebrex] Allergy Itching Verified 08/20/20 17:48 chlorzoxazone Allergy Unknown Verified 08/20/20 17:48 gabapentin Allergy Hives Verified 08/20/20 17:48 ibuprofen [From Motrin IB] Allergy Rash Verified 08/20/20 17:48 - Social History Does the pt smoke?: No Smoking Status: Never smoker Does the pt drink ETOH?: No Does the pt have substance abuse?: No - Immunizations Immunizations are current?: Yes - POLST Patient has POLST: No PD ED PE EXPANDED - General General: Alert, Other (Obese chronically appearing male in a wheelchair.) - Neck Neck: Other (Contact dermatitis in the skin folds of posterior neck without surrounding erythema or edema) - Cardiac Cardiac: Tachy, Radial strong equal, Pedal strong equal, Cap refill < 2 sec - Respiratory Respiratory: Clear to ausultation tyrone. No: Distress, Labored - Abdomen Abdomen: Normal Bowel sounds, Other (1 cm abscess left lower quadrant of abdomen with 4 x 4 area of surrounding erythema with induration.). No: Tender to palpation - Derm Derm: Normal color, Warm and dry, Other (Contact dermatitis skin fold to posterior neck.) - GCS Eye Opening: Spontaneous Motor: Obeys Commands Verbal: Oriented Total: 15 Results - Vitals Vitals: Vital Signs - 24 hr 08/20/20 08/20/20 08/20/20 17:48 18:09 19:10 Temperature 37.3 C 37.3 C Heart Rate 120 H 120 H 129 H Respiratory 20 20 22 Rate Blood Pressure 146/100 H 146/100 H O2 Saturation 97 97 Oxygen O2 Source Room air - Labs Labs: Laboratory Tests 08/20/20 08/20/20 08/20/20 18:40 18:40 18:40 WBC 13.7 H RBC 6.26 H Hgb 15.6 Hct 50.7 MCV 81.0 MCH 24.9 L MCHC 30.8 L RDW 13.9 Plt Count 396 MPV 9.7 Neut # (Auto) 10.1 H Lymph # (Auto) 2.3 [place] # (Auto) 1.0 Eos # (Auto) 0.2 Baso # (Auto) 0.0 Absolute Nucleated RBC 0.00 Nucleated RBC % 0.0 Sodium 133 L Potassium 4.3 Chloride 95 L Carbon Dioxide 26 Anion Gap 12.0 BUN 17 Creatinine 0.7 Estimated GFR (MDRD) 129 Glucose 248 H Lactic Acid 1.6 Calcium 9.4 Total Bilirubin 0.5 AST 27 ALT 48 Alkaline Phosphatase 89 Total Protein 8.4 H Albumin 4.2 Globulin 4.2 Albumin/Globulin Ratio 1.0 Lipase 25 - Rads (name of study) CXR Radiology: Final report received (No acute process) Procedures - Abscess I&D (location) left lowr abdomen Preparation: Betadine Incision: Incised with scalpel, Purulent drainage, Loculations broken, Ir rigated, Packed Other: Pt tolerated well, Dressing applied, Antibiotic prescribed PD MEDICAL DECISION MAKING - ED course Complexity details: reviewed results, re-evaluated patient, considered differential, d/w patient ED course: 34-year-old male who has a history of cerebral palsy and asthma presents the emergency department for evaluation of intermittent fevers off and on for 1 week. He also reports an exacerbation of his asthma but has not been able to find his inhaler. He also reported a rash in his neck area that he thought may be a dermatitis. On exam he presented afebrile and was noted to be tachycardic. However in review of previous ER visits a heart rate in the 120s of appears to be his typical. Screening labs were obtained including a lactic acid which was not elevated. His white blood cell count was just over 13,000. Blood cultures were obtained and are pending. However on physical exam he was noted to have a large abscess in area of cellulitis on the left lower abdominal wall that was incised and drained. There is moderate amount of purulent fluid we will place this gentleman on Bactrim for MRSA prophylaxis. He did have a right otitis media. Bactrim the rash in his neck is consistent with the skin fold dermatitis. I have advised him to wash it daily with warm soap and water and apply an antifungal/hydrocortisone cream. These will both be prescribed. Emergent return precautions were discussed Departure - Departure Disposition: Home, Self Care Clinical Impression: Abdominal abscess, Dermatitis Otitis media Qualifiers: Otitis media type: suppurative Chronicity: acute Laterality: right Recurrence: not specified as recurrent Spontaneous tympanic membrane rupture: without spontaneous rupture Qualified Code(s): H66.001 - Acute suppurative otitis media without spontaneous rupture of ear drum, right ear Condition: Stable Record reviewed to determine appropriate education?: Yes Instructions: ED Infec Skin Cellulitis Prescriptions: Sulfamethox/Trimeth 800/160 [Bactrim Ds 800/160] 1 each PO BID #14 tablet Hydrocortisone 1% Oint [Hydrocortisone] 28 gm TP BID #1 oint...g. Miconazole Nitrate [Miconazole 3] 25 gm VG BID #1 cream.appl Albuterol Sulfate [Proair Respiclick] 90 mcg IH TID PRN #1 aer.pow.ba PRN Reason: Wheezing Comments: Haider weiner were seen in the emergency department for fevers. On exam you were found to have an infection on your lower abdominal wall that is due to an abscess forming. This was drained in the ER. In 24 to 48 hours you may remove that packing. Please fill the prescription for the Bactrim and begin taking twice daily for the next 7 days. I have refilled your albuterol inhaler. The rash on the back of your neck is called dermatitis. It is because the skin folds are in constant contact to each other and get warm and wet. I would like you to apply the hydrocortisone and nystatin cream together and apply to the rash twice daily until resolved. It is important that when you bathe or shower that you pat dry all of your skin folds. Sometimes it is useful to use a hairspring truer to make sure that everything gets dry. You have a Covid test pending. You need to self quarantine until the result is done and negative. Do not leave your house. Do not get near anybody. The results should be done in 48 to 72 hours. We will call with a positive result, the fastest way to get a negative result for confirmation though is to go to the hospital website at [email or web address], click on the my [facility] tab and sign up for the patient portal. If any friends or family get sick and would like to have a Covid test done, but do not have signs or symptoms that would necessitate being hospitalized, we encourage testing through our coronavirus swabbing station, call [phone] to schedule an appointment. If you feel that your fevers are not improving, you have cough vomiting or worsening cellulitis please return to the ER for second look
[2020-08-20] MEDS ORDERED: ALBUTEROL 1 PUFF INH STA (18:25)
[2020-08-20] MEDS ORDERED: SODIUM CHLORIDE 0.9% 1,000 ML IV STA (18:26)
--- NOTE | 2020-08-20 18:42 | XRAY Report ---
PROCEDURE: Chest 1 View X-Ray INDICATIONS: chest pain TECHNIQUE: One view of the chest was acquired. COMPARISON: 01/26/2020 chest x-ray FINDINGS: Surgical changes and devices: None. Lungs and pleura: No pleural effusions or pneumothorax. Lungs are clear. Mediastinum: Mediastinal contours appear normal. Heart size is normal. Bones and chest wall: No suspicious bony lesions. Overlying soft tissues appear unremarkable. IMPRESSION: No acute process. Reviewed by: Mesfin Pardo MD on 08/20/2020 6:41 PM PST Approved by: Mesfin Pardo MD on 08/20/2020 6:41 PM [facility] Station ID: [id number]
[2020-08-20 18:48] LABS: BASOPHILS % (AUTO) 0.3 %; EOSINOPHILS # (AUTO) 0.2 10^3/uL (0.0-0.7); EOSINOPHILS % (AUTO) 1.1 %; HGB - HEMOGLOBIN 15.6 g/dL (14.0-18.0); LYMPHOCYTES # (AUTO) 2.3 10^3/uL (1.5-3.5); LYMPHOCYTES % (AUTO) 16.8 %; MEAN CORPUSCULAR HEMOGLOBIN 24.9 pg (27.0-31.0); MEAN CORPUSCULAR HGB CONC 30.8 g/dL (32.0-36.0); MEAN PLATELET VOLUME 9.7 fL (7.4-11.4); MONOCYTES % (AUTO) 7.5 %; NEUTROPHILS # (AUTO) 10.1 10^3/uL (1.5-6.6); NEUTROPHILS % (AUTO) 73.4 %; PLT - PLATELET COUNT 396 10^3/uL (130-450); RED BLOOD COUNT 6.26 10^6/uL (4.70-6.10); RED CELL DISTRIBUTION WIDTH 13.9 % (12.0-15.0); WHITE BLOOD COUNT 13.7 x10^3/uL (4.8-10.8)
[2020-08-20 19:01] LABS: ALBUMIN 4.2 g/dL (3.2-5.5); BILIRUBIN,TOTAL 0.5 mg/dL (0.2-1.0); CALCIUM 9.4 mg/dL (8.5-10.3); CREATININE 0.7 mg/dL (0.6-1.2); TOTAL PROTEIN 8.4 g/dL (6.7-8.2)
[2020-08-20 20:04] VITALS: BP 144/100
== END 2020-08-20 20:11 | disposition home or self-care (01) ==
LOC: ED 17:34
DX: L02.211 Cutaneous abscess of abdominal wall (principal); H66.001 Acute suppurative otitis media without spontaneous rupture of ear drum, right ear; L30.9 Dermatitis, unspecified; Z99.3 Dependence on wheelchair; E66.9 Obesity, unspecified; G80.9 Cerebral palsy, unspecified; J45.909 Unspecified asthma, uncomplicated; R00.0 Tachycardia, unspecified; Z20.822 Contact with and (suspected) exposure to COVID-19
CPT/HCPCS: 10061; 36415; 80053; 83605; 83690; 85025; 87040; 94640; 94664

== ENCOUNTER 2021-01-08 04:18 | Emergency (ER) | payer MEDICAID ==
[2021-01-08] MEDS ORDERED: HYDROcod/ACETAM 5/325 MG TABLET PO STA (04:42)
[2021-01-08] MEDS ORDERED: CIPROFLOXACIN 250 MG TABLET PO STA (04:42)
--- NOTE | 2021-01-08 04:46 | ED Physician Documentation ---
PD HPI HEENT - Stated complaint Stated Complaint: L EAR SWOLLEN - Chief complaint Chief Complaint: Heent - History obtained from History obtained from: Patient - Additional information Additional information: Patient comes emergency department chief complaint of left ear swelling redness and pain after showering 2 days ago. Patient states this is happened multiple times before, either to 1 year the other. He denies fevers or chills. No swelling of his oral or pharyngeal structures. No lymphadenopathy that he has noticed. He was not ill with anything. He does not think any the pain is coming from inside of his ear. No other complaints at this time. Review of Systems Ten Systems: 10 systems reviewed and negative Constitutional: reports: Reviewed and negative Eyes: reports: Reviewed and negative Ears: reports: Ear pain Nose: reports: Reviewed and negative Throat: reports: Reviewed and negative Cardiac: reports: Reviewed and negative Respiratory: reports: Reviewed and negative GI: reports: Reviewed and negative : reports: Reviewed and negative Skin: reports: Reviewed and negative Musculoskeletal: reports: Reviewed and negative Neurologic: reports: Reviewed and negative Psychiatric: reports: Reviewed and negative Endocrine: reports: Reviewed and negative Immunocompromised: reports: Reviewed and negative PD PAST MEDICAL HISTORY - Past Medical History Cardiovascular: None Respiratory: Asthma, Other Neuro: None Endocrine/Autoimmune: None GI: None : None HEENT: None Psych: None Musculoskeletal: Osteoporosis, Chronic back pain Derm: None - Past Surgical History Past Surgical History: Yes Ortho: Other - Present Medications Home Medications: Ambulatory Orders Medication Instructions Recorded Confirmed Baclofen 20 mg PO QID 11/18/12 02/10/20 Calcium Carbonate [Tums] 1 mg PO DAILY 11/18/12 02/10/20 Cholecalciferol (Vitamin D3) 400 unit PO DAILY 11/18/12 02/10/20 [Vitamin D] Nebulizer and Compressor [Portable 1 each MC ONCE #1 each 07/27/18 02/10/20 Nebulizer System] Albuterol Sulf [Ventolin Hfa 1 - 2 puffs INH Q4HR PRN #1 inhaler 10/16/18 02/10/20 Inhaler] Hydrocodone/Acetaminophen [Wray 1 each PO Q6H PRN #20 tablet 07/28/19 02/10/20 5-325 Tablet] Hydrocortisone 1% Oint 28 gm TP BID #1 oint...g. 08/20/20 [Hydrocortisone] Ciprofloxacin HCl [Cipro] 500 mg PO BID #14 tablet 01/08/21 HYDROcod/ACETAM 5/325 [Wray 5/325] 1 - 2 tablet PO Q6H PRN #14 tablet 01/08/21 - Allergies Allergies/Adverse Reactions: Allergies Allergy/AdvReac Type Severity Reaction Status Date / Time celecoxib [From Celebrex] Allergy Itching Verified 01/08/21 04:30 chlorzoxazone Allergy Unknown Verified 01/08/21 04:30 gabapentin Allergy Hives Verified 01/08/21 04:30 ibuprofen [From Motrin IB] Allergy Rash Verified 01/08/21 04:30 - Social History Does the pt smoke?: No Smoking Status: Never smoker Does the pt drink ETOH?: No Does the pt have substance abuse?: No - Immunizations Immunizations are current?: Yes - POLST Patient has POLST: No PD ED PE NORMAL - Vitals Vital signs reviewed: Yes - General General: Alert and oriented X 3, No acute distress, Well developed/nourished - HEENT HEENT: Atraumatic, PERRL, EOMI, Moist mucous membranes, Other (Erythema and soft tissue edema of left external ear globally. No fluctuance. Mild induration. Canal spared. Tympanic membrane normal.) - Neck Neck: Supple, no meningeal sign - Respiratory Respiratory: No respiratory distress - Derm Derm: Warm and dry - Extremities Extremities: No deformity - Neuro Neuro: Alert and oriented X 3 - Psych Psych: Normal mood, Normal affect Results - Vitals Vitals: Vital Signs - 24 hr 01/08/21 04:27 Heart Rate 110 H Respiratory 20 Rate Blood Pressure 179/117 H O2 Saturation 96 Oxygen O2 Source Room air PD MEDICAL DECISION MAKING - ED course Complexity details: considered differential, d/w patient ED course: The patient appeared to have a left ear cellulitis/perichondritis, and I reviewed his records from previously. It appears patient has had success with ciprofloxacin on the number of occasions in the past, so I prescribed this again. Patient was also given a dose of hydrocodone in the emergency department. We discussed symptomatic management at home, as well as the usual indications for return. Departure - Departure Disposition: 01 Home, Self Care Clinical Impression: Perichondritis Otitis externa Qualifiers: Otitis externa type: unspecified type Chronicity: acute Laterality: left Qualified Code(s): H60.502 - Unspecified acute noninfective otitis externa, left ear Condition: Stable Instructions: ED Otitis Externa Prescriptions: Ciprofloxacin HCl [Cipro] 500 mg PO BID #14 tablet HYDROcod/ACETAM 5/325 [Wray 5/325] 1 - 2 tablet PO Q6H PRN #14 tablet PRN Reason: Pain
[2021-01-08 05:17] VITALS: BP 143/100
== END 2021-01-08 05:10 | disposition home or self-care (01) ==
LOC: ED 04:18
DX: H60.502 Unspecified acute noninfective otitis externa, left ear (principal); H61.002 Unspecified perichondritis of left external ear
CPT/HCPCS: 99282; 99283; A9270

== ENCOUNTER 2021-10-04 08:00 | Outpatient (CLI) | payer MEDICAID | END 2021-10-04 23:59 | LOC: LAB.R 08:00 | PROVIDERS: ATTEND Nurse Practitioner | DX: R05.9 Cough, unspecified (principal); Z20.822 Contact with and (suspected) exposure to COVID-19 ==

== ENCOUNTER 2022-05-20 15:22 | Emergency (ER) | payer MEDICAID ==
[2022-05-20] MEDS ORDERED: oxyCODONE 5 MG TABLET PO STA (15:51)
[2022-05-20] MEDS ORDERED: lidocaine 1% 20 ML MDV SUBQ ONE (15:51)
[2022-05-20] MEDS ORDERED: TETANUS/DIPHTHERIA/PERTUSSIS 0.5 ML SYRINGE IM ONE (15:51)
--- NOTE | 2022-05-20 15:54 | ED Physician Documentation ---
History of Present Illness - Stated complaint Stated Complaint: R RING FINGER PX - Chief complaint Chief Complaint: Ext Problem - Additonal information Additional information: 36-year-old male who is wheelchair-bound presents to the emergency department with a severe infection in his right ring finger. He reports that he got the finger trapped between the wheelchair and the wall 4 days ago. Since then he is developed progressive swelling of the distal tip and has a very large area of purulent pus pocket surrounding the entire fingertip and under the nailbed. He has been soaking it in hot water. Uncertain of last tetanus. No fevers. Review of Systems Constitutional: denies: Fever, Chills Skin: reports: Lesions PD PAST MEDICAL HISTORY - Past Medical History Cardiovascular: None Respiratory: Asthma, Other Neuro: None Endocrine/Autoimmune: None GI: None : None HEENT: None Psych: None Musculoskeletal: Osteoporosis, Chronic back pain Derm: None - Past Surgical History Past Surgical History: Yes Ortho: Other - Present Medications Home Medications: Ambulatory Orders Medication Instructions Recorded Confirmed Baclofen 20 mg PO QID 11/18/12 05/20/22 Calcium Carbonate [Tums] 1 mg PO DAILY 11/18/12 02/10/20 Cholecalciferol (Vitamin D3) 400 unit PO DAILY 11/18/12 02/10/20 [Vitamin D] Albuterol Sulf [Ventolin Hfa 2 puffs INH Q4HR PRN 05/20/22 05/20/22 Inhaler] Fluticasone/Salmeterol [Advair 1 puffs IH BID 05/20/22 05/20/22 250-50 Diskus] Glipizide [Glipizide ER] 5 mg PO DAILY 05/20/22 05/20/22 Metformin HCl 1,000 mg ORAL BID 05/20/22 05/20/22 Sulfamethox/Trimeth 800/160 1 each PO BID #14 tablet 05/20/22 [Bactrim Ds 800/160] cephALEXin [Keflex] 500 mg PO Q6H #28 cap 05/20/22 lisinopriL [Zestril] 5 mg PO DAILY 05/20/22 05/20/22 oxyCODONE [Roxicodone] 5 mg PO TID PRN #10 tablet 05/20/22 - Allergies Allergies/Adverse Reactions: Allergies Allergy/AdvReac Type Severity Reaction Status Date / Time celecoxib [From Celebrex] Allergy Itching Verified 05/20/22 15:40 chlorzoxazone Allergy Unknown Verified 05/20/22 15:40 gabapentin Allergy Hives Verified 05/20/22 15:40 ibuprofen [From Motrin IB] Allergy Rash Verified 05/20/22 15:40 - Social History Does the pt smoke?: No Smoking Status: Never smoker Does the pt drink ETOH?: No Does the pt have substance abuse?: No - Immunizations Immunizations are current?: Yes - POLST Patient has POLST: No PD ED PE EXPANDED - General General: Alert, No acute distress, Other (Presents in a wheelchair) - Extremities Extremities: Right finger(s) (Right ring finger distal tip is swollen with a large purulent blister surrounding the entire distal tip. Purulent drainage noted. No pain with passive extension of the finger. Mild extending erythema of the finger.) Results - Vitals Vitals: Vital Signs - 24 hr 05/20/22 15:40 Temperature 36.4 C L Heart Rate 134 H Respiratory 20 Rate Blood Pressure 132/93 H O2 Saturation 96 Oxygen O2 Source Room air - Rads (name of study) right fingers Radiology: Final report received (Fourth phalanx soft tissue edema. Overall nonspecific on the basis of the exam.) Procedures - Abscess I&D (location) right ring finger Preparation: Betadine Incision: Incised with scalpel, Needle aspiration, Other (This was a degloving of a purulent abscess that surrounded the entirety of the right ring finger. Once the skin was removed we note that the proximal cuticle is not adherent to the nailbed but the distal edge is. Xeroform and gauze applied to wound.) Other: Pt tolerated well PD MEDICAL DECISION MAKING - ED course Complexity details: reviewed results, re-evaluated patient, considered differential, d/w patient ED course: 36-year-old male presents emergency department for evaluation of right ring finger injury sustained 4 days ago when his finger was trapped between his wheelchair and the wall. He presents with a large purulent blister surrounding the entire distal tip. X-ray does not reveal an osseous abnormality. We were able to adequately anesthetize the finger and degloved the purulent drainage. A culture was sent. Once the finger was degloved we were able to see that there is viable tissue beneath that however the nailbed proximally is not adherent though the distal tip is. This wound was thoroughly irrigated with 500 mL of saline and Xeroform applied over the wound bed. He will be placed on Bactrim and Keflex. He is advised to have very close follow-up with his primary care provider as this wound is at high risk to develop osteomyelitis. And in that case he may lose the distal tip. He will request a hand referral from his primary care provider. Emergent return precautions were discussed for worsening symptoms Departure - Departure Disposition: Home, Self Care Clinical Impression: Paronychia of ring finger, Cellulitis of right ring finger Condition: Stable Record reviewed to determine appropriate education?: Yes Prescriptions: Sulfamethox/Trimeth 800/160 [Bactrim Ds 800/160] 1 each PO BID #14 tablet cephALEXin [Keflex] 500 mg PO Q6H #28 cap oxyCODONE [Roxicodone] 5 mg PO TID PRN #10 tablet PRN Reason: Pain Comments: Haider weiner presented today to the emergency department with a large pus filled blister on the entirety of your distal right ring finger. When you cut your finger between the wall and the wheelchair you likely developed a small paronychia that just blossom and festered. The proximal edge of your nailbed has lifted though the distal tip is intact. However the loss of tissue here does put you at high risk to develop infection into the joint space and bone. I have started you on Keflex and Bactrim. These are antibiotics that were sent to the [facility]. A culture is pending though I expect the antibiotics have started will be sensitive. I have also sent a limited prescription of oxycodone to the pharmacy. In general every day I would like you to wash this with warm soap and water pat dry and then apply a thin layer of the yellow gauze called Xeroform to the wound. It is important that you discuss this ED visit with your primary care doctor soon as possible. I believe that you would benefit from referral to a hand surgeon for longer-term evaluation and management of this wound. If at any point you have concerns of worsening infection, develop fevers or red streaking of your finger or hand then please return immediately to the ER for repeat evaluation.
--- NOTE | 2022-05-20 16:40 | XRAY Report ---
PROCEDURE: Finger(s) RT INDICATIONS: distal ring finger blister TECHNIQUE: AP hand, 3 views of the fourth finger(s) acquired. COMPARISON: None FINDINGS: Bones: No fractures or dislocations. No suspicious bony lesions. Soft tissues: No suspicious soft tissue calcifications. Focal soft tissue prominence is noted adjac ent to the distal fourth phalanx. IMPRESSION: Fourth phalanx soft tissue edema, overall nonspecific on the basis of this exam. If further evaluatio n is required, MRI is recommended. No underlying osseous abnormality. Reviewed by: Kathi Fry MD on 05/20/2022 4:39 PM PDT Approved by: Kathi Fry MD on 05/20/2022 4:39 PM PDT Station ID: [id number]
[2022-05-20 17:47] VITALS: BP 143/74
== END 2022-05-20 17:49 | disposition home or self-care (01) ==
LOC: ED 15:22
DX: L03.011 Cellulitis of right finger (principal); W23.0XXA Caught, crushed, jammed, or pinched between moving objects, initial encounter; Z23 Encounter for immunization; Z71.85 Encounter for immunization safety counseling
CPT/HCPCS: 10160; 73140; 87070; 87205; 90471; 90715; 99283; A9270

== ENCOUNTER 2022-06-09 21:13 | Emergency (ER) | payer MEDICAID ==
--- NOTE | 2022-06-09 23:26 | ED Physician Documentation ---
History of Present Illness - Stated complaint Stated Complaint: R FINGER PX/COUGH - Chief complaint Chief Complaint: Resp - History obtained from History obtained from: Patient, Family - History of Present Illness Timing: How many days ago (2) Improved by: nothing Worsened by: no exacerbating factors - Additonal information Additional information: c/o 2 days of cough, becoming increasingly productive since earlier today. Denies fever.Denies dyspnea but at times the coughing is in spasms and takes a while to catch his breath. He also has ongoing right ring finger infection for which he was T+R recently from this ED , asks that I reevaluate this while he is here for his respiratory c/o. Review of Systems Constitutional: denies: Fever Throat: denies: Sore throat Cardiac: reports: Reviewed and negative Respiratory: reports: Cough. denies: Dyspnea, Wheezing GI: reports: Reviewed and negative Skin: reports: Rash (right fourth finger) PD PAST MEDICAL HISTORY - Past Medical History Past Medical History: Yes Cardiovascular: None Respiratory: Asthma, Other Neuro: None, Cerebral palsy Endocrine/Autoimmune: None GI: None : None HEENT: None Psych: None Musculoskeletal: Osteoporosis, Chronic back pain Derm: None - Past Surgical History Past Surgical History: Yes Ortho: Other - Present Medications Home Medications: Ambulatory Orders Medication Instructions Recorded Confirmed Baclofen 20 mg PO QID 11/18/12 05/20/22 Calcium Carbonate [Tums] 1 mg PO DAILY 11/18/12 02/10/20 Cholecalciferol (Vitamin D3) 400 unit PO DAILY 11/18/12 02/10/20 [Vitamin D] Albuterol Sulf [Ventolin Hfa 2 puffs INH Q4HR PRN 05/20/22 05/20/22 Inhaler] Fluticasone/Salmeterol [Advair 1 puffs IH BID 05/20/22 05/20/22 250-50 Diskus] Glipizide [Glipizide ER] 5 mg PO DAILY 05/20/22 05/20/22 Metformin HCl 1,000 mg ORAL BID 05/20/22 05/20/22 Sulfamethox/Trimeth 800/160 1 each PO BID #14 tablet 05/20/22 [Bactrim Ds 800/160] cephALEXin [Keflex] 500 mg PO Q6H #28 cap 05/20/22 lisinopriL [Zestril] 5 mg PO DAILY 05/20/22 05/20/22 oxyCODONE [Roxicodone] 5 mg PO TID PRN #10 tablet 05/20/22 cephALEXin [Keflex] 500 mg PO Q6H #28 cap 06/09/22 oxyCODONE [Roxicodone] 5 mg PO TID PRN #10 tablet 06/09/22 - Allergies Allergies/Adverse Reactions: Allergies Allergy/AdvReac Type Severity Reaction Status Date / Time celecoxib [From Celebrex] Allergy Itching Verified 06/09/22 21:31 chlorzoxazone Allergy Unknown Verified 06/09/22 21:31 gabapentin Allergy Hives Verified 06/09/22 21:31 ibuprofen [From Motrin IB] Allergy Rash Verified 06/09/22 21:31 - Social History Does the pt smoke?: No Smoking Status: Never smoker Does the pt drink ETOH?: No Does the pt have substance abuse?: No - Immunizations Immunizations are current?: Yes - POLST Patient has POLST: No PD ED PE NORMAL - Vitals Vital signs reviewed: Yes - General General: Alert and oriented X 3, No acute distress, Well developed/nourished - HEENT HEENT: Pharynx benign - Neck Neck: Supple, no meningeal sign - Cardiac Cardiac: RRR, No murmur, No gallop, No rub - Respiratory Respiratory: No respiratory distress, Clear bilaterally PD ED PE EXPANDED - Extremities JOSE UE/Hands Visual: 1 - rash (conluent, flat/minimally raised erythema with sharp margins. No fluctuance, mild/moderate tenderness. Fingernail is adherent distally to nail bed, not adherent to proximal nail bed/fold), swelling, tenderness Results - Vitals Vitals: Oxygen O2 Source Room air - Labs Labs: Laboratory Tests 06/09/22 22:26 Nasal Adenovirus (PCR) NOT DETECTED Nasal B. parapertussis DNA (PCR) NOT DETECTED Nasal Coronavir 229E PCR NOT DETECTED Nasal Coronavir HKU1 PCR NOT DETECTED Nasal Coronavir NL63 PCR NOT DETECTED Nasal Coronavir OC43 PCR NOT DETECTED Nasal Enterovir/Rhinovir PCR NOT DETECTED Nasal Influenza B PCR NOT DETECTED Nasal Influenza A PCR NOT DETECTED Nasal Parainfluen 1 PCR NOT DETECTED Nasal Parainfluen 2 PCR NOT DETECTED Nasal Parainfluen 3 PCR NOT DETECTED Nasal Parainfluen 4 PCR NOT DETECTED Nasal RSV (PCR) NOT DETECTED Nasal B.pertussis DNA PCR NOT DETECTED Nasal C.pneumoniae (PCR) NOT DETECTED Judson Human Metapneumo PCR NOT DETECTED Nasal M.pneumoniae (PCR) NOT DETECTED Nasal SARS-CoV-2 (PCR) NOT DETECTED PD MEDICAL DECISION MAKING - ED course Complexity details: reviewed old records, reviewed results, re-evaluated patient, considered differential, d/w patient ED course: Lungs are CTA bilaterally although he has a bronchitis, at times bronchospastic, cough. Respiratory PCR panel is negative. At this time, would be possible/questionable benefit to antibiotic for his bronchitis (no viral cause on respiratory PCR panel). As for his finger infection, it appears improved compared to the description on the chart from previous [facility] ED visit, although patient says it has been worsening over past 2-3 days (more swollen and painful). He says he completed the antibiotics (keflex, bactrim) prescribed by ANJU Roach on previous visit, but followed up with another outpatient doctor and was given a second course of bactrim only. I will add a course of keflex to return to double-coverage, which might have some benefit in coverage should his bronchitis have a bacterial cause or component. He requests pain medication for his finger, says [id number] tylenol does not work and that he is allergic to ibuprofen. I am providing rx for oxycodone/percocet I am prescribing a short course of short-acting opioid pain medication for this patient. 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 I have discussed that the opioids are for short term therapy only, and will not be refilled from the ED Departure - Departure Disposition: 01 Home, Self Care Clinical Impression: Bronchitis, Cellulitis of finger, right Condition: Good Instructions: ED Upper Resp Infec Abx Tx, ED Infec Skin Cellulitis Prescriptions: cephALEXin [Keflex] 500 mg PO Q6H #28 cap oxyCODONE [Roxicodone] 5 mg PO TID PRN #10 tablet PRN Reason: Pain Comments: Your nasal swab was negative for the tested viruses (includes COVID, influenza, RSV). Your symptoms are suggestive of a respiratory infection such as bronchitis. You are being prescribed an antibiotic (cephalexin) which covers many of the typical bacterial causes of bronchitis, as well as provide additional bacterial coverage regarding your finger infection. Prescriptions for the antibiotic and oxycodone (pain medication) have been electronically submitted to [facility] pharmacy in [place]. Continue the sulfa antibiotic that you are currently taking. I am prescribing a short course of narcotic pain medication for you. These are potentially dangerous and addictive medications that should be used carefully. These medications may constipate you. Take an ixpr-gas-hltwtee stool softener (docusate) twice daily with plenty of water while taking these medications. If you go 24 hours without a bowel movement, take [id number] miralax, per package instructions. Do not drink or drive while taking these medications. If you received narcotic or sedating medications while in the emergency department, do not drive for 24 hours. Store this medication in a safe, secure place and out of reach of children. It is a violation of federal law to give or sell this medication to another person or to use in a manner other than prescribed. The ED will not refill narcotic prescriptions, including prescriptions lost or stolen. To dispose of unwanted medications: 1. [facility] at [address] in [place] has a medication drop box. They accept prescription medications (in pill form) Friday through Friday 9:00 a.m. to 5:00 p.m. 2. [facility] accepts prescription medications (in pill form only) for disposal year round. Call for more information. 3. Contact the [facility] for the next [facility] sponsored prescription drug collection event. , [phone], or [phone]; Discharge Date/Time: 06/09/22 23:55
[2022-06-09 23:27] LABS: B. PARAPERTUSSIS- RESP PCR PAN NOT DETECTED; B. PERTUSSIS- RESP PCR PANEL NOT DETECTED; C. PNEUMONIAE- RESP PCR PANEL NOT DETECTED; CORONAVIRUS 229E-RESP PCR NOT DETECTED; CORONAVIRUS HKU1-RESP PCR NOT DETECTED; CORONAVIRUS NL63-RESP PCR NOT DETECTED; CORONAVIRUS OC43-RESP PCR NOT DETECTED; HUMAN METAPNEUMOVIRUS NOT DETECTED; INFLUENZA A- RESP PCR PANEL NOT DETECTED; INFLUENZA B - RESP PCR PANEL NOT DETECTED; M. PNEUMONIAE- RESP PCR PANEL NOT DETECTED; PARAINFLUENZA VIRUS 1 NOT DETECTED; PARAINFLUENZA VIRUS 2 NOT DETECTED; PARAINFLUENZA VIRUS 3 NOT DETECTED; PARAINFLUENZA VIRUS 4 NOT DETECTED; RHINOVIRUS/ENTEROVIRUS NOT DETECTED; RSV- RESP PCR PANEL NOT DETECTED; SARS-CoV-2 -RESP PCR PANEL NOT DETECTED
[2022-06-09] MEDS ORDERED: oxyCODONE 5 MG TABLET PO STA (23:45)
[2022-06-09] MEDS ORDERED: cephALEXin 250 MG CAPSULE PO STA (23:45)
[2022-06-09 23:56] VITALS: BP 134/91
== END 2022-06-09 23:55 | disposition home or self-care (01) ==
LOC: ED 21:13
DX: J40 Bronchitis, not specified as acute or chronic (principal); L03.011 Cellulitis of right finger; M79.644 Pain in right finger(s)
CPT/HCPCS: 87633; 99283; 99284; A9270

== ENCOUNTER 2022-08-05 13:24 | Emergency (ER) | payer MEDICAID ==
[2022-08-05] MEDS ORDERED: CHERRY SYRUP 10 ML UDC PO ONE (15:56)
[2022-08-05] MEDS ORDERED: DEXAMETHASONE 10 MG/ML VIAL PO STA (15:56)
--- NOTE | 2022-08-05 15:58 | ED Physician Documentation ---
PD HPI HEENT - Stated complaint Stated Complaint: RT EAR PX - Chief complaint Chief Complaint: Heent - History obtained from History obtained from: Patient, Family - History of Present Illness Timing - onset: How many days ago (3) Timing - duration: Days (3) Timing - details: Gradual onset, Still present Location: Right ear Improves: Medication Worsens: Swalllowing Associated symptoms: Congestion, Rhinorrhea, Cough Similar symptoms before: Diagnosis (OM) Recently seen: Not recently seen - Additional information Additional information: 36-year-old male with a history of cerebral palsy has developed a cough and congestion about 3 days ago. He has developed pain to his right ear which is progressively worsened over the last day and he is here now for pain to the right ear. He has had otitis a number of times previously. He denies any problems with his stomach right now. Review of Systems Constitutional: denies: Fever Eyes: denies: Decreased vision Ears: reports: Ear pain Nose: reports: Rhinorrhea / runny nose, Congestion Throat: denies: Sore throat Cardiac: denies: Chest pain / pressure, Palpitations Respiratory: reports: Cough. denies: Dyspnea GI: denies: Vomiting, Diarrhea PD PAST MEDICAL HISTORY - Past Medical History Cardiovascular: None Respiratory: Asthma, Other Neuro: None, Cerebral palsy Endocrine/Autoimmune: None GI: None : None HEENT: None Psych: None Musculoskeletal: Osteoporosis, Chronic back pain Derm: None - Past Surgical History Past Surgical History: Yes Ortho: Other - Present Medications Home Medications: Ambulatory Orders Medication Instructions Recorded Confirmed Baclofen 20 mg PO QID 11/18/12 05/20/22 Calcium Carbonate [Tums] 1 mg PO DAILY 11/18/12 02/10/20 Cholecalciferol (Vitamin D3) 400 unit PO DAILY 11/18/12 02/10/20 [Vitamin D] Albuterol Sulf [Ventolin Hfa 2 puffs INH Q4HR PRN 05/20/22 05/20/22 Inhaler] Fluticasone/Salmeterol [Advair 1 puffs IH BID 05/20/22 05/20/22 250-50 Diskus] Glipizide [Glipizide ER] 5 mg PO DAILY 05/20/22 05/20/22 Metformin HCl 1,000 mg ORAL BID 05/20/22 05/20/22 Sulfamethox/Trimeth 800/160 1 each PO BID #14 tablet 05/20/22 [Bactrim Ds 800/160] cephALEXin [Keflex] 500 mg PO Q6H #28 cap 05/20/22 lisinopriL [Zestril] 5 mg PO DAILY 05/20/22 05/20/22 oxyCODONE [Roxicodone] 5 mg PO TID PRN #10 tablet 05/20/22 cephALEXin [Keflex] 500 mg PO Q6H #28 cap 06/09/22 oxyCODONE [Roxicodone] 5 mg PO TID PRN #10 tablet 06/09/22 Cefdinir 300 mg PO BID #20 cap 08/05/22 - Allergies Allergies/Adverse Reactions: Allergies Allergy/AdvReac Type Severity Reaction Status Date / Time celecoxib [From Celebrex] Allergy Itching Verified 08/05/22 13:36 chlorzoxazone Allergy Unknown Verified 08/05/22 13:36 gabapentin Allergy Hives Verified 08/05/22 13:36 ibuprofen [From Motrin IB] Allergy Rash Verified 08/05/22 13:36 - Social History Does the pt smoke?: No Smoking Status: Never smoker Does the pt drink ETOH?: No Does the pt have substance abuse?: No - Immunizations Immunizations are current?: Yes - POLST Patient has POLST: No PD ED PE NORMAL - Vitals Vital signs reviewed: Yes - General General: Alert and oriented X 3, Well developed/nourished, Other - HEENT HEENT: Atraumatic, PERRL, EOMI, Pharynx benign, Other (Right TM is erythematous angrily and with retraction the left TM is minimally involved.) - Neck Neck: Supple, no meningeal sign, No bony TTP - Cardiac Cardiac: RRR, No murmur - Respiratory Respiratory: No respiratory distress, Other (Diminished breath sounds and cough response bilaterally) - Back Back: No CVA TTP, No spinal TTP - Derm Derm: Normal color, Warm and dry, No rash - Extremities Extremities: No deformity, No edema - Neuro Neuro: Alert and oriented X 3, Normal speech Eye Opening: Spontaneous Motor: Obeys Commands Verbal: Oriented GCS Score: 15 - Psych Psych: Normal mood, Normal affect Results - Vitals Vitals: Vital Signs - 24 hr 08/05/22 13:32 Temperature 37.1 C Heart Rate 115 H Respiratory 16 Rate Blood Pressure 128/85 H O2 Saturation 98 Oxygen O2 Source Room air PD Medical Decision Making - ED course Complexity details: considered differential, d/w patient, d/w family ED course: 36-year-old male with a history of cerebral palsy comes into the emergency department complaining of right ear pain he had a cough and congestion for 3 days and has otitis on exam. He has had otitis number of times previously. He is administered a dose of dexamethasone and we will place him on some cefdinir as an outpatient. Departure - Departure Disposition: Home, Self Care Clinical Impression: Otitis media Qualifiers: Otitis media type: suppurative Chronicity: acute Laterality: bilateral Rec urrence: recurrent Spontaneous tympanic membrane rupture: without spontaneous rupture Qualified Code(s): H66.006 - Acute suppurative otitis media without spontaneous rupture of ear drum, recurrent, bilateral Condition: Stable Instructions: ED Otitis Media Acute Adult Follow-Up: Melvi Bal ARNP [Primary Care Provider] - Prescriptions: Cefdinir 300 mg PO BID #20 cap Comments: [place], today it looks like you have an infection in both ears. I have E scribed some cefdinir to the [facility] in [place]. Follow-up with Melvi Bal as needed.
[2022-08-05 16:06] VITALS: BP 124/80
== END 2022-08-05 16:04 | disposition home or self-care (01) ==
LOC: ED 13:24
DX: H66.006 Acute suppurative otitis media without spontaneous rupture of ear drum, recurrent, bilateral (principal)
CPT/HCPCS: 99282; 99283; A9270

== ENCOUNTER 2023-01-19 02:14 | Emergency (ER) | payer MEDICAID ==
--- NOTE | 2023-01-19 03:03 | ED Physician Documentation ---
History of Present Illness - Stated complaint Stated Complaint: LFT ANKLE/RT WRIST INJURY - Chief complaint Chief Complaint: Trauma Ext - History obtained from History obtained from: Patient - Additonal information Additional information: Patient is a 37-year-old male with a history of Spastic cerebral palsy presenting for evaluation after a fall this evening. Patient states that he had a spasm that caused him to fall and reports pain to the right wrist and left ankle. He did not hit his head or have LOC. He does not take blood thinners. Review of Systems Constitutional: denies: Fever Cardiac: denies: Chest pain / pressure Respiratory: denies: Dyspnea GI: denies: Abdominal Pain Musculoskeletal: reports: Extremity pain Neurologic: denies: Head injury PD PAST MEDICAL HISTORY - Past Medical History Cardiovascular: None Respiratory: Asthma, Other Neuro: None, Cerebral palsy Endocrine/Autoimmune: None GI: None : None HEENT: None Psych: None Musculoskeletal: Osteoporosis, Chronic back pain Derm: None - Past Surgical History Past Surgical History: Yes Ortho: Other - Present Medications Home Medications: Ambulatory Orders Medication Instructions Recorded Confirmed Baclofen 20 mg PO QID 11/18/12 01/19/23 Albuterol Sulf [Ventolin Hfa 2 puffs INH Q4HR PRN 05/20/22 01/19/23 Inhaler] Metformin HCl 1,000 mg ORAL BID 05/20/22 01/19/23 lisinopriL [Zestril] 5 mg PO DAILY 05/20/22 01/19/23 - Allergies Allergies/Adverse Reactions: Allergies Allergy/AdvReac Type Severity Reaction Status Date / Time celecoxib [From Celebrex] Allergy Itching Verified 01/19/23 02:25 chlorzoxazone Allergy Unknown Verified 01/19/23 02:25 gabapentin Allergy Hives Verified 01/19/23 02:25 ibuprofen [From Motrin IB] Allergy Rash Verified 01/19/23 02:25 - Social History Does the pt smoke?: No Smoking Status: Never smoker Does the pt drink ETOH?: No Does the pt have substance abuse?: No - Immunizations Immunizations are current?: Yes - POLST Patient has POLST: No PD ED PE NORMAL - General General: Alert and oriented X 3, No acute distress, Well developed/nourished - HEENT HEENT: Atraumatic - Neck Neck: No bony TTP - Cardiac Cardiac: Strong equal pulses - Respiratory Respiratory: No respiratory distress - Derm Derm: Warm and dry - Extremities Extremities: No deformity, Other (Tenderness to Right wrist and left ankle, no deformities, pain with range of motion, no snuffbox tenderness) - Neuro Neuro: Alert and oriented X 3, No sensory deficit, Normal speech, Other (No focal weakness) Eye Opening: Spontaneous Motor: Obeys Commands Verbal: Oriented GCS Score: 15 Results - Vitals Vitals: Vital Signs - 24 hr 01/19/23 01/19/23 02:21 04:00 Temperature 36.2 C L Heart Rate 115 H 109 H Respiratory 20 21 Rate Blood Pressure 143/91 H 143/88 H O2 Saturation 97 98 Oxygen O2 Source Room air PD Medical Decision Making - ED course Complexity details: reviewed results, d/w patient, d/w family ED course: Patient is a 37-year-old with several palsy presenting for evaluation of right wrist and left ankle pain after a fall. No head injury. Not on blood thinners. No deformities noted. Neurovascularly intact. X-rays of the right wrist and left ankle were obtained which I reviewed I see no fracture or dislocation. Patient was placed into a Velcro splint for his right wrist as well as an Aircast for the left ankle. He requested a dose of pain medicine. Discussed continued supportive care as well as need for close follow-up with PCP. Patient is advised on concerning symptoms to return for. Departure - Departure Disposition: 01 Home, Self Care Clinical Impression: Fall, Right wrist pain, Left ankle pain Condition: Stable Instructions: ED Sprain Ankle W X Ray, ED Sprain Wrist Comments: The x-ray of your right wrist and left ankle at this time do not show any clear fractures or dislocated bones. The radiologist will also review these images in a few hours and if there are any discrepancies I will call and notify you.In the meanwhile we have placed a Velcro splint to the right wrist as well as an Aircast of the left ankle that you should use as needed for pain. Continue with anti-inflammatory such as acetaminophen or aleve, ice and rest. If you develop any worsening symptoms please return to the ER. Otherwise I would recommend close follow-up with your PCP. Discharge Date/Time: 01/19/23 04:15
[2023-01-19] MEDS ORDERED: HYDROcod/ACETAM 5/325 MG TABLET PO STA (03:35)
[2023-01-19 04:17] VITALS: BP 143/88
--- NOTE | 2023-01-19 07:01 | XRAY Report ---
PROCEDURE: Ankle 3 View LT INDICATIONS: fall TECHNIQUE: 3 views of the ankle were acquired. COMPARISON: None. FINDINGS: Bones: No fractures or dislocations. Ankle mortise is normally aligned. No suspicious bony lesions . Pes planus Soft tissues: No tibiotalar joint effusion. Achilles tendon appears normal. IMPRESSION: No acute bony abnormality. Pes planus. Findings are concordant with preliminary interpretation provided by [facility]. Reviewed by: Reese Jones on 01/19/2023 6:00 AM JACEY Approved by: Reese Jones on 01/19/2023 6:00 AM JACEY Station ID: [id number]
--- NOTE | 2023-01-19 07:02 | XRAY Report ---
PROCEDURE: Wrist 3 View RT INDICATIONS: fall TECHNIQUE: 3 views of the wrist were acquired. COMPARISON: None. FINDINGS: Bones: No fractures or dislocations. No suspicious bony lesions. Soft tissues: No suspicious soft tissue calcifications or masses. IMPRESSION: No acute bony abnormality. Findings are concordant with preliminary interpretation provided by [facility]. Reviewed by: Reese Jones on 01/19/2023 6:01 AM JACEY Approved by: Reese Jones on 01/19/2023 6:01 AM JACEY Station ID: [id number]
== END 2023-01-19 04:15 | disposition home or self-care (01) ==
LOC: ED 02:14
DX: M25.531 Pain in right wrist (principal); M25.572 Pain in left ankle and joints of left foot
CPT/HCPCS: 73110; 73610; 99283; 99284; A9270

== ENCOUNTER 2023-01-21 18:08 | Emergency (ER) | payer MEDICAID ==
[2023-01-21 18:18] VITALS: BP 163/98
[2023-01-21] MEDS ORDERED: BUFFERED LIDOCAINE 10 ML SYRINGE SUBQ STA (18:20)
[2023-01-21] MEDS ORDERED: CEPHALEXIN 250 MG Prepack 8 CAP BOTTLE PO STA (18:20)
--- NOTE | 2023-01-21 18:21 | ED Physician Documentation ---
PD HPI UPPER EXT INJURY - Stated complaint Stated Complaint: LT FINGER SWOLLEN - Chief complaint Chief Complaint: Ext Problem - History obtained from History obtained from: Patient (1 day of painful swelling and redness to the left index finger consistent with prior paronychia that he had on the other side.) PD PAST MEDICAL HISTORY - Past Medical History Past Medical History: Yes Cardiovascular: Hypertension Respiratory: Asthma, Other Neuro: Cerebral palsy Endocrine/Autoimmune: Type 2 diabetes GI: None : None HEENT: None Psych: None Musculoskeletal: Osteoporosis, Chronic back pain Derm: None - Past Surgical History Past Surgical History: Yes Ortho: Other - Present Medications Home Medications: Ambulatory Orders Medication Instructions Recorded Confirmed Baclofen 20 mg PO QID 11/18/12 01/21/23 Albuterol Sulf [Ventolin Hfa 2 puffs INH Q4HR PRN 05/20/22 01/21/23 Inhaler] Metformin HCl 1,000 mg ORAL BID 05/20/22 01/21/23 lisinopriL [Zestril] 5 mg PO DAILY 05/20/22 01/21/23 HYDROcod/ACETAM 5/325 [[place] 5/325] 1 - 2 tab PO Q6H PRN #7 tablet 01/21/23 Naproxen Sodium [Aleve] 220 mg PO BID PRN 01/21/23 01/21/23 cephALEXin [Keflex] 500 mg PO Q6H #28 cap 01/21/23 - Allergies Allergies/Adverse Reactions: Allergies Allergy/AdvReac Type Severity Reaction Status Date / Time celecoxib [From Celebrex] Allergy Itching Verified 01/21/23 18:12 chlorzoxazone Allergy Unknown Verified 01/21/23 18:12 gabapentin Allergy Hives Verified 01/21/23 18:12 ibuprofen [From Motrin IB] Allergy Rash Verified 01/21/23 18:12 - Social History Does the pt smoke?: No Smoking Status: Never smoker Does the pt drink ETOH?: No Does the pt have substance abuse?: No - Immunizations Immunizations are current?: Yes - POLST Patient has POLST: No PD ED PE NORMAL - Vitals Vital signs reviewed: Yes - General General: Alert and oriented X 3, Other (In a wheelchair) - Extremities Extremities: Other (Paronychia of the radial side of the nailbed of the left index finger with mild cellulitis.) - Neuro Neuro: Alert and oriented X 3, Normal speech Results - Vitals Vitals: Vital Signs - 24 hr 01/21/23 18:12 Temperature 36.3 C L Heart Rate 116 H Respiratory 20 Rate Blood Pressure 163/98 H O2 Saturation 98 Oxygen O2 Source Room air Procedures - Abscess I&D (location) Paronychia left second finger Preparation: Lidocaine 1% (Digital block with buffered lidocaine) Incision: Incised with scalpel, Purulent drainage Other: Antibiotic prescribed Departure - Departure Disposition: 01 Home, Self Care Clinical Impression: Paronychia Condition: Good Record reviewed to determine appropriate education?: Yes Instructions: ED Fingernail Infec Prescriptions: cephALEXin [Keflex] 500 mg PO Q6H #28 cap HYDROcod/ACETAM 5/325 [[place] 5/325] 1 - 2 tab PO Q6H PRN #7 tablet PRN Reason: Pain Comments: I sent your prescriptions electronically to the [facility] in [place]. Follow-up with your doctor around or Friday for wound check. Return for new or worsening symptoms. I am prescribing a short course of narcotic pain medication for you. These are potentially dangerous and addictive medications that should be used carefully. These medications may constipate you. Take an [id number] stool softener (docusate) twice daily with plenty of water while taking these medications. If you go 24 hours without a bowel movement, take [id number] miralax, per package instructions. Do not drink or drive while taking these medications. If you received narcotic or sedating medications while in the emergency department, do not drive for 24 hours. Store this medication in a safe, secure place and out of reach of children. It is a violation of federal law to give or sell this medication to another person or to use in a manner other than prescribed. The ED will not refill narcotic prescriptions, including prescriptions lost or s tolen. To dispose of unwanted medications: 1. [facility] provides a drop box for medication in pill form only (no liquids) 8:00 am to 4:30 p.m. Friday-Friday in the lobby of the [facility], [address] [place] [address]. Empty pills into ziplock bag before disposal. Call [phone] for information. 2.[facility] is a free service available to all [facility] residents. Go to [email or web address] Note that many narcotic pain relievers also contain Tylenol/acetaminophen. Please ensure that your total dose of acetaminophen from all sources does not exceed 3 g (3000 mg) per day.
[2023-01-21] MEDS ORDERED: HYDROcod/ACET 5/325 Prepack 4 PO STA (18:59)
== END 2023-01-21 19:16 | disposition home or self-care (01) ==
LOC: ED 18:08
DX: L03.012 Cellulitis of left finger (principal); I10 Essential (primary) hypertension; E11.9 Type 2 diabetes mellitus without complications; G80.9 Cerebral palsy, unspecified; Z79.84 Long term (current) use of oral hypoglycemic drugs; Z79.899 Other long term (current) drug therapy
CPT/HCPCS: 10060

== ENCOUNTER 2023-01-29 00:23 | Emergency (ER) | payer MEDICARE, MEDICAID ==
[2023-01-29 00:40] VITALS: BP 156/121
[2023-01-29] MEDS ORDERED: HYDROcod/ACETAM 5/325 MG TABLET PO STA (01:52)
--- NOTE | 2023-01-29 01:55 | ED Physician Documentation ---
PD HPI UPPER EXT INJURY - Stated complaint Stated Complaint: FALL/RT SHOULDER INJURY - Chief complaint Chief Complaint: Ext Problem - History obtained from History obtained from: Patient PD PAST MEDICAL HISTORY - Past Medical History Cardiovascular: Hypertension Respiratory: Asthma, Other Neuro: Cerebral palsy Endocrine/Autoimmune: Type 2 diabetes GI: None : None HEENT: None Psych: None Musculoskeletal: Osteoporosis, Chronic back pain Derm: None - Past Surgical History Past Surgical History: Yes Ortho: Other - Present Medications Home Medications: Ambulatory Orders Medication Instructions Recorded Confirmed Baclofen 20 mg PO QID 11/18/12 01/21/23 Albuterol Sulf [Ventolin Hfa 2 puffs INH Q4HR PRN 05/20/22 01/21/23 Inhaler] Metformin HCl 1,000 mg ORAL BID 05/20/22 01/21/23 lisinopriL [Zestril] 5 mg PO DAILY 05/20/22 01/21/23 HYDROcod/ACETAM 5/325 [[place] 5/325] 1 - 2 tab PO Q6H PRN #7 tablet 01/21/23 Naproxen Sodium [Aleve] 220 mg PO BID PRN 01/21/23 01/21/23 cephALEXin [Keflex] 500 mg PO Q6H #28 cap 01/21/23 HYDROcod/ACETAM 5/325 [[place] 5/325] 1 - 2 tablet PO Q6H PRN #7 tablet 01/29/23 - Allergies Allergies/Adverse Reactions: Allergies Allergy/AdvReac Type Severity Reaction Status Date / Time celecoxib [From Celebrex] Allergy Itching Verified 01/21/23 18:12 chlorzoxazone Allergy Unknown Verified 01/21/23 18:12 gabapentin Allergy Hives Verified 01/21/23 18:12 ibuprofen [From Motrin IB] Allergy Rash Verified 01/21/23 18:12 - Social History Does the pt smoke?: No Smoking Status: Never smoker Does the pt drink ETOH?: No Does the pt have substance abuse?: No - Immunizations Immunizations are current?: Yes - POLST Patient has POLST: No Results - Vitals Vitals: Vital Signs - 24 hr 01/29/23 00:29 Temperature 36.6 C Heart Rate 120 H Respiratory 18 Rate Blood Pressure 156/121 H O2 Saturation 96 Oxygen O2 Source Room air Departure - Departure Disposition: 01 Home, Self Care Clinical Impression: Acromioclavicular sprain Qualifiers: Encounter type: initial encounter Laterality: right Qualified Code(s): S43.51XA - Sprain of right acromioclavicular joint, initial encounter Condition: Stable Instructions: ED Sprain AC Joint Prescriptions: HYDROcod/ACETAM 5/325 [[place] 5/325] 1 - 2 tablet PO Q6H PRN #7 tablet PRN Reason: Pain Comments: Your x-ray series does not show any broken bones or any dislocations. You most likely have sprained your acromioclavicular joint, the joint deforms the lip of the shoulder and is comprised of the end of the collarbone and a small section of the shoulder blade. When you fall on the outside of your shoulder as you did, it causes these 2 bones to be forced apart, tearing the ligament that connects them. There are various degrees of this kind of tear and yours is the most mild, based on the appearance of your x-ray. There is nothing to be done in terms of surgery or any other procedure and it really just takes time to heal. A prescription for some pain medication has been electronically transmitted to the [facility] pharmacy in [place] and you been given a dose of pain medicine here as well. It is unfortunate that you cannot take ibuprofen since this would be helpful also. Please follow-up with your doctor as needed. You may apply ice packs to help with some of the pain and swelling, and should be sure to move your arm regularly every day to avoid scarring and loss of range of motion.
--- NOTE | 2023-01-29 02:07 | XRAY Report ---
PROCEDURE: Shoulder 3 View RT INDICATIONS: fall/pain TECHNIQUE: 3 views of the shoulder were acquired. COMPARISON: None. FINDINGS: Bones: No fractures or dislocations. No suspicious bony lesions. Visualized ribs appear intact. Soft tissues: No suspicious soft tissue calcifications. IMPRESSION: 1. No fracture or dislocation. Reviewed by: Irwin Guadarrama MD on 01/29/2023 2:05 AM PDT Approved by: Irwin Guadarrama MD on 01/29/2023 2:05 AM PDT Station ID: [id number]
== END 2023-01-29 02:04 | disposition home or self-care (01) ==
LOC: ED 00:23
DX: S43.51XA Sprain of right acromioclavicular joint, initial encounter (principal); W06.XXXA Fall from bed, initial encounter; Y92.003 Bedroom of unspecified non-institutional (private) residence as the place of occurrence of the external cause; Z88.6 Allergy status to analgesic agent
CPT/HCPCS: 73030; 99283; A9270

== ENCOUNTER 2023-02-12 10:31 | Outpatient (CLI) | payer MEDICARE, MEDICAID ==
[2023-02-12 11:48] LABS: BASOPHILS % (AUTO) 0.4 %; EOSINOPHILS # (AUTO) 0.2 10^3/uL (0.0-0.7); EOSINOPHILS % (AUTO) 1.4 %; HCT - HEMATOCRIT 49.8 % (42.0-52.0); HGB - HEMOGLOBIN 16.2 g/dL (14.0-18.0); LYMPHOCYTES # (AUTO) 3.1 10^3/uL (1.5-3.5); LYMPHOCYTES % (AUTO) 29.2 %; MEAN CORPUSCULAR HEMOGLOBIN 26.5 pg (27.0-31.0); MEAN CORPUSCULAR HGB CONC 32.5 g/dL (32.0-36.0); MEAN CORPUSCULAR VOLUME 81.5 fL (80.0-94.0); MEAN PLATELET VOLUME 10.2 fL (7.4-11.4); MONOCYTES # (AUTO) 0.8 10^3/uL (0.0-1.0); MONOCYTES % (AUTO) 7.8 %; NEUTROPHILS # (AUTO) 6.5 10^3/uL (1.5-6.6); NEUTROPHILS % (AUTO) 60.3 %; PLT - PLATELET COUNT 390 10^3/uL (130-450); RED BLOOD COUNT 6.11 10^6/uL (4.70-6.10); WHITE BLOOD COUNT 10.7 x10^3/uL (4.8-10.8)
[2023-02-12 12:21] LABS: THYROID STIMULATING HORMONE 1.04 uIU/mL (0.34-5.60)
[2023-02-12 12:36] LABS: ESTIMATED AVERAGE GLUCOSE 272 mg/dL (70-100); HEMOGLOBIN A1c% 11.1 % (4.27-6.07)
[2023-02-12 12:55] LABS: ALBUMIN 4.3 g/dL (3.2-5.5); ALBUMIN/GLOBULIN RATIO 1.4 (1.0-2.2); ALKALINE PHOSPHATASE 84 IU/L (42-121); ALT ALANINE AMINOTRANSFERASE 50 IU/L (10-60); AST ASPARTATE AMINOTRANSFERASE 18 IU/L (10-42); BILIRUBIN,TOTAL 0.4 mg/dL (0.2-1.0); BUN - BLOOD UREA NITROGEN 17 mg/dL (6-20); CALCIUM 9.6 mg/dL (8.5-10.3); CARBON DIOXIDE - CO2 24 mmol/L (21-32); CHLORIDE 100 mmol/L (101-111); CHOL/HDL RATIO 4.1 (<5.0); CHOLESTEROL 144 mg/dL; CREATININE 0.5 mg/dL (0.6-1.3); GFR - MDRD 187 (>89); GLUCOSE 300 mg/dL (74-104); HDL CHOLESTEROL 35 mg/dL; LDL CHOLESTEROL,CALCULATED 58 mg/dL; LDL/HDL RATIO 1.7 (<3.6); POTASSIUM 3.8 mmol/L (3.5-4.5); SODIUM 132 mmol/L (135-145); TOTAL PROTEIN 7.3 g/dL (6.4-8.9); TRIGLYCERIDES 255 mg/dL (48-352); VLDL CHOLESTEROL 51 mg/dL
== END 2023-02-12 10:32 | disposition home or self-care (01) ==
LOC: LAB.N 10:31
PROVIDERS: ATTEND Nurse Practitioner
DX: E11.9 Type 2 diabetes mellitus without complications (principal)
CPT/HCPCS: 36415; 80053; 80061; 82043; 82570; 83036; 83721; 84443; 85025

== ENCOUNTER 2023-03-18 02:35 | Emergency (ER) | payer MEDICARE, MEDICAID ==
[2023-03-18] MEDS ORDERED: HYDROmorphone 1 MG/ML CARPUJECT IM STA (02:56)
[2023-03-18] MEDS ORDERED: DEXAMETHASONE 10 MG/ML VIAL IM STA (02:56)
[2023-03-18] MEDS ORDERED: KETOROLAC 60 MG/2 ML VIAL IM STA (02:56)
[2023-03-18 02:57] VITALS: BP 176/105; O2SAT 96
--- NOTE | 2023-03-18 03:00 | ED Physician Documentation ---
PD HPI UPPER EXT INJURY - Stated complaint Stated Complaint: R SHOULDER INJ - Chief complaint Chief Complaint: Trauma Ext - History obtained from History obtained from: Patient - Additonal information Additional information: The patient comes to the emergency department chief complaint of right shoulder pain after injury. He states that he was moving himself from his wheelchair to the bed and bearing down on his right hand with a straightened arm, when he suddenly felt a pop in his right anterior shoulder. He states that it has hurt to move it ever since. He is injured the shoulder before transferring, but does not have a specific injury diagnosis. No other complaints at this time. PD PAST MEDICAL HISTORY - Past Medical History Cardiovascular: Hypertension Respiratory: Asthma, Other Neuro: Cerebral palsy Endocrine/Autoimmune: Type 2 diabetes GI: None : None HEENT: None Psych: None Musculoskeletal: Osteoporosis, Chronic back pain Derm: None - Past Surgical History Past Surgical History: Yes Ortho: Other - Present Medications Home Medications: Ambulatory Orders Medication Instructions Recorded Confirmed Baclofen 20 mg PO QID 11/18/12 01/21/23 Albuterol Sulf [Ventolin Hfa 2 puffs INH Q4HR PRN 05/20/22 01/21/23 Inhaler] Metformin HCl 1,000 mg ORAL BID 05/20/22 01/21/23 lisinopriL [Zestril] 5 mg PO DAILY 05/20/22 01/21/23 HYDROcod/ACETAM 5/325 [[place] 5/325] 1 - 2 tab PO Q6H PRN #7 tablet 01/21/23 Naproxen Sodium [Aleve] 220 mg PO BID PRN 01/21/23 01/21/23 cephALEXin [Keflex] 500 mg PO Q6H #28 cap 01/21/23 HYDROcod/ACETAM 5/325 [[place] 5/325] 1 - 2 tablet PO Q6H PRN #7 tablet 01/29/23 HYDROcod/ACETAM 5/325 [[place] 5/325] 1 - 2 tablet PO Q6H PRN #10 tablet 03/18/23 - Allergies Allergies/Adverse Reactions: Allergies Allergy/AdvReac Type Severity Reaction Status Date / Time celecoxib [From Celebrex] Allergy Itching Verified 03/18/23 02:50 chlorzoxazone Allergy Unknown Verified 03/18/23 02:50 gabapentin Allergy Hives Verified 03/18/23 02:50 ibuprofen [From Motrin IB] Allergy Rash Verified 03/18/23 02:50 - Social History Does the pt smoke?: No Smoking Status: Never smoker Does the pt drink ETOH?: No Does the pt have substance abuse?: No - Immunizations Immunizations are current?: Yes - POLST Patient has POLST: No PD ED PE NORMAL - Vitals Vital signs reviewed: Yes - General General: Alert and oriented X 3, No acute distress (The patient appears uncomfortable but otherwise no apparent distress.), Well developed/nourished - HEENT HEENT: Atraumatic, PERRL, Moist mucous membranes - Neck Neck: Supple, no meningeal sign - Cardiac Cardiac: Strong equal pulses - Respiratory Respiratory: No respiratory distress - Derm Derm: Normal color, Warm and dry, No rash - Extremities Extremities: No deformity, Other (Tenderness palpation without deformity an terior right shoulder. No appreciable edema, though patient is quite obese. Severely limited range of motion, secondary to pain.) - Neuro Neuro: Alert and oriented X 3, No motor deficit, No sensory deficit - Psych Psych: Normal mood, Normal affect Results - Vitals Vitals: Vital Signs - 24 hr 03/18/23 02:50 Temperature 98.4 C H Heart Rate 116 H Respiratory 24 Rate Blood Pressure 176/105 H O2 Saturation 96 Oxygen O2 Source Room air - Rads (name of study) Right shoulder x-ray series Relevant Findings:: EMP independent interpretation of test (neg) PD Medical Decision Making - ED course Complexity details: reviewed results, re-evaluated patient, considered differential, d/w patient ED course: The patient was treated symptomatically with Dilaudid, Decadron, and Toradol IM, and worked up with x-ray series of the right shoulder. X-ray showed no acute findings. The patient was given a sling for comfort only. We have discussed that this is likely a soft tissue injury that will heal on its own. We have discussed symptomatic management at home as well as the usual indications for return. Departure - Departure Disposition: 01 Home, Self Care Clinical Impression: Shoulder sprain Qualifiers: Encounter type: initial encounter Shoulder sprain type: unspecified sprain Laterality: right Qualified Code(s): S43.401A - Unspecified sprain of right shoulder joint, initial encounter Condition: Stable Instructions: ED Sprain Shoulder Prescriptions: HYDROcod/ACETAM 5/325 [[place] 5/325] 1 - 2 tablet PO Q6H PRN #10 tablet PRN Reason: Pain Comments: Your x-rays look good. You have most likely sprained or strained when the soft tissue structures of your shoulder, such as ligaments or tendons. This will ultimately heal on its own, but will take some time to do so. You should schedule an appointment with your doctor for 2 or 3 weeks from now to discuss further imaging such as MRI if your shoulder does not feel like it is getting any better. You have been treated in the emergency department with medications for pain and inflammation. You may take the pain medication has been prescribed, as needed for your pain. The prescription has been electronically transmitted to the [facility] pharmacy in [place], your pharmacy of choice on record. Forms: PCP List
--- NOTE | 2023-03-18 08:08 | XRAY Report ---
PROCEDURE: Shoulder 3 View RT INDICATIONS: injury/pain TECHNIQUE: 4 views of the shoulder were acquired. COMPARISON: None. FINDINGS: Bones: No fractures or dislocations. No suspicious bony lesions. Visualized ribs appear intact. Soft tissues: No suspicious soft tissue calcifications. IMPRESSION: No acute bony abnormality. Findings are concordant with preliminary interpretation provided by [facility]. Reviewed by: Fabiano Keen MD on 03/18/2023 8:07 AM PDT Approved by: Fabiano Keen MD on 03/18/2023 8:07 AM PDT Station ID: [id number]
== END 2023-03-18 03:40 | disposition home or self-care (01) ==
LOC: ED 02:35
DX: S43.401A Unspecified sprain of right shoulder joint, initial encounter (principal); X58.XXXA Exposure to other specified factors, initial encounter; Y93.89 Activity, other specified; Y92.003 Bedroom of unspecified non-institutional (private) residence as the place of occurrence of the external cause
CPT/HCPCS: 73030; 96372; 99283; 99284; J1170

== ENCOUNTER 2023-03-25 02:11 | Outpatient (CLI) | payer MEDICARE, MEDICAID | END 2023-03-25 23:59 | disposition critical access hospital (66) | LOC: EMS 02:11 | DX: M25.511 Pain in right shoulder (principal); Z91.81 History of falling | CPT/HCPCS: A0425; A0429 ==

== ENCOUNTER 2023-03-25 02:29 | Emergency (ER) | payer MEDICARE, MEDICAID ==
[2023-03-25 02:45] VITALS: BP 149/98; O2SAT 95
[2023-03-25] MEDS ORDERED: oxyCODONE 5 MG TABLET PO STA (03:07)
[2023-03-25] MEDS ORDERED: diazePAM 5 MG TABLET PO STA (03:08)
--- NOTE | 2023-03-25 03:15 | ED Physician Documentation ---
History of Present Illness - Stated complaint Stated Complaint: R SHOULDER PX - Chief complaint Chief Complaint: Ext Problem - Additonal information Additional information: Patient is a 37-year-old male presenting with right shoulder pain. Was seen here a few days ago and evaluated for right shoulder pain which began after transitioning himself out of his wheelchair. Has hurt the same shoulder in the past. X-rays from a few days ago were negative for fracture or other abnormality. He reports that he was taking the Vicodin prescribed at our facility which did help with his pain. States that he has since run out of the Vicodin. Additionally takes baclofen for chronic back pain. No new falls or trauma to the shoulder. States that he is having pain that radiates down to his hand. Review of Systems Constitutional: denies: Fever Eyes: denies: Decreased vision Ears: denies: Loss of hearing Nose: denies: Rhinorrhea / runny nose Throat: denies: Dental pain / toothache Cardiac: denies: Chest pain / pressure Respiratory: denies: Dyspnea GI: denies: Abdominal Pain : denies: Dysuria Skin: denies: Rash Musculoskeletal: denies: Neck pain PD PAST MEDICAL HISTORY - Past Medical History Cardiovascular: Hypertension Respiratory: Asthma, Other Neuro: Cerebral palsy Endocrine/Autoimmune: Type 2 diabetes GI: None : None HEENT: None Psych: None Musculoskeletal: Osteoporosis, Chronic back pain Derm: None - Past Surgical History Past Surgical History: Yes Ortho: Other - Present Medications Home Medications: Ambulatory Orders Medication Instructions Recorded Confirmed Baclofen 20 mg PO QID 11/18/12 01/21/23 Albuterol Sulf [Ventolin Hfa 2 puffs INH Q4HR PRN 05/20/22 01/21/23 Inhaler] Metformin HCl 1,000 mg ORAL BID 05/20/22 01/21/23 lisinopriL [Zestril] 5 mg PO DAILY 05/20/22 01/21/23 HYDROcod/ACETAM 5/325 [[place] 5/325] 1 - 2 tab PO Q6H PRN #7 tablet 01/21/23 Naproxen Sodium [Aleve] 220 mg PO BID PRN 01/21/23 01/21/23 cephALEXin [Keflex] 500 mg PO Q6H #28 cap 01/21/23 HYDROcod/ACETAM 5/325 [[place] 5/325] 1 - 2 tablet PO Q6H PRN #7 tablet 01/29/23 HYDROcod/ACETAM 5/325 [[place] 5/325] 1 - 2 tablet PO Q6H PRN #10 tablet 03/18/23 - Allergies Allergies/Adverse Reactions: Allergies Allergy/AdvReac Type Severity Reaction Status Date / Time celecoxib [From Celebrex] Allergy Itching Verified 03/25/23 02:38 chlorzoxazone Allergy Unknown Verified 03/25/23 02:38 gabapentin Allergy Hives Verified 03/25/23 02:38 ibuprofen [From Motrin IB] Allergy Rash Verified 03/25/23 02:38 - Social History Does the pt smoke?: No Smoking Status: Never smoker Does the pt drink ETOH?: No Does the pt have substance abuse?: No - Immunizations Immunizations are current?: Yes - POLST Patient has POLST: No PD ED PE NORMAL - General General: Alert and oriented X 3 - HEENT HEENT: Atraumatic - Neck Neck: Supple, no meningeal sign - Cardiac Cardiac: RRR - Abdomen Abdomen: Normal bowel sounds - Extremities Extremities: Other (Tenderness to palpation and decreased range of motion of the rightShoulder.) Results - Vitals Vitals: Vital Signs - 24 hr 03/25/23 02:36 Temperature 37.1 C Heart Rate 102 H Respiratory 18 Rate Blood Pressure 149/98 H O2 Saturation 95 Oxygen O2 Source Room air PD Medical Decision Making - ED course Complexity details: reviewed old records, reviewed results, d/w patient ED course: Patient 37-year-old malePersistent right shoulder pain. X-rays from previous evaluation 09/17 reviewed. No bony abnormality. He denied any new trauma to the shoulder on this occasion. Differential diagnosis included but not limited to adhesive capsulitis, rotator cuff injuryRadiculopathy,. 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 No indications of vascular or neurologic compromise.No reported neck pain. Given Roxicodone, Valium in the emergency department. Received prescription for narcotic pain medication from our facility less than 1 week ago. Given that I do not feel comfortable providing a more narcotics from the emergency department this evening but I will discharge with instructions to follow-up with his primary care doctor soon as possible. Clear return precautions given. Departure - Departure Disposition: 01 Home, Self Care Clinical Impression: Shoulder pain Qualifiers: Chronicity: unspecified Laterality: right Qualified Code(s): M25.511 - Pain in right shoulder Comments: Thank you for allowing us to care for you today Gabriella. I reviewed the x-rays taken of your shoulder during her previous ED visit. There was no indication of fracture dislocation at that time. It is important that you follow-up with your primary care doctor. Given that you have recently received a prescription for narcotic pain medication from our facility No s chedule II narcotic medications will be prescribed on this occasion. Again it is important that you follow-up with your primary care doctor for further evaluation and management of your right shoulder pain and other chronic medical issues. If it anytime you have any new or worsening symptoms or believe that you are having a dangerous or life-threatening medical emergency please to return to the emergency department. Forms: PCP List
== END 2023-03-25 03:39 | disposition home or self-care (01) ==
LOC: EDUNIT# → ED 02:29
DX: M25.511 Pain in right shoulder (principal)
CPT/HCPCS: 99283; A9270

== ENCOUNTER 2023-07-07 21:32 | Emergency (ER) | payer MEDICARE, MEDICAID ==
--- NOTE | 2023-07-08 00:12 | XRAY Report ---
PROCEDURE: Shoulder 3 View RT INDICATIONS: pain TECHNIQUE: 3 views of the shoulder were acquired. COMPARISON: None. FINDINGS: Bones: No fractures or dislocations. No suspicious bony lesions. Visualized ribs appear intact. Soft tissues: No suspicious soft tissue calcifications. The visualized lungs are within normal limi ts. IMPRESSION: No acute bony abnormality. Reviewed by: Kathi Fry MD on 07/08/2023 12:11 AM PST Approved by: Kathi Fry MD on 07/08/2023 12:11 AM PST Station ID: [id number]
[2023-07-08 02:46] VITALS: BP 142/110; O2SAT 95
[2023-07-08] MEDS ORDERED: HYDROmorphone 1 MG/ML CARPUJECT IM STA (03:34)
[2023-07-08] MEDS ORDERED: ONDANSETRON ODT 4 MG TABLET TL STA (03:34)
--- NOTE | 2023-07-08 03:36 | ED Physician Documentation ---
PD HPI UPPER EXT INJURY - Stated complaint Stated Complaint: R SHOULDER PX - Chief complaint Chief Complaint: Trauma Ext - History obtained from History obtained from: Patient, Family (father) - History of Present Illness Location: Right, Shoulder Type of injury: Fall Where injury occurred: Street Timing - onset: How many days ago (3) Timing - duration: Days (3) Timing - details: Abrupt onset, Still present Improved by: Rest, Immobilization Worsened by: Moving, Palpating Associated symptoms: No: Weakness, Numbness, Tingling Contributing factors: No: Anticoagulated Similar symptoms before: Diagnosis (shoulder sprain) Recently seen: Not recently seen - Additonal information Additional information: Haider Galvin is a 37-year-old male with a history of cerebral palsy who is normally in a wheelchair. 3 days ago he was out on his wheelchair and tipped over a curb and landed on his right shoulder and arm. He is having pain with movement of his arm located in the shoulder. He has had problems with the shoulder previously. He has severe pain and is unable to sleep. He is waited here to be seen for almost 6 hours. Review of Systems Constitutional: denies: Fever Respiratory: denies: Cough GI: denies: Vomiting PD PAST MEDICAL HISTORY - Past Medical History Past Medical History: Yes Cardiovascular: Hypertension Respiratory: Asthma, Other Neuro: Cerebral palsy Endocrine/Autoimmune: Type 2 diabetes GI: None : None HEENT: None Psych: None Musculoskeletal: Osteoporosis, Chronic back pain Derm: None - Past Surgical History Past Surgical History: Yes Ortho: Other - Present Medications Home Medications: Ambulatory Orders Medication Instructions Recorded Confirmed Baclofen 20 mg PO QID 11/18/12 01/21/23 Albuterol Sulf [Ventolin Hfa 2 puffs INH Q4HR PRN 05/20/22 01/21/23 Inhaler] Metformin HCl 1,000 mg ORAL BID 05/20/22 01/21/23 lisinopriL [Zestril] 5 mg PO DAILY 05/20/22 01/21/23 HYDROcod/ACETAM 5/325 [[place] 5/325] 1 - 2 tab PO Q6H PRN #7 tablet 01/21/23 Naproxen Sodium [Aleve] 220 mg PO BID PRN 01/21/23 01/21/23 cephALEXin [Keflex] 500 mg PO Q6H #28 cap 01/21/23 HYDROcod/ACETAM 5/325 [[place] 5/325] 1 - 2 tablet PO Q6H PRN #7 tablet 01/29/23 HYDROcod/ACETAM 5/325 [[place] 5/325] 1 - 2 tablet PO Q6H PRN #10 tablet 03/18/23 HYDROcod/ACETAM 5/325 [[place] 5/325] 1 - 2 tablet PO Q6H PRN #14 tablet 07/08/23 - Allergies Allergies/Adverse Reactions: Allergies Allergy/AdvReac Type Severity Reaction Status Date / Time celecoxib [From Celebrex] Allergy Itching Verified 07/07/23 21:34 chlorzoxazone Allergy Unknown Verified 07/07/23 21:34 gabapentin Allergy Hives Verified 07/07/23 21:34 ibuprofen [From Motrin IB] Allergy Rash Verified 07/07/23 21:34 - Social History Does the pt smoke?: No Smoking Status: Never smoker Does the pt drink ETOH?: No Does the pt have substance abuse?: No - Immunizations Immunizations are current?: Yes - POLST Patient has POLST: No PD ED PE NORMAL - Vitals Vital signs reviewed: Yes (tachy and hypertensive ) - General General: Alert and oriented X 3, Well developed/nourished, Other (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) - HEENT HEENT: Atraumatic, PERRL, EOMI - Respiratory Respiratory: No respiratory distress - Derm Derm: Normal color, Warm and dry, No rash - Extremities Extremities: No deformity, No edema, Other (There is pain to palpation of the R shoulder anteriorly and over the supraspinatus as well as the lateral deltoid there is pain with any movement of the arm flexion extension and internal and external rotation.The patient is able to grasp his R hand with his L hand and lift his arm above his head.) - Neuro Neuro: Alert and oriented X 3, 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, No motor deficit, No sensory deficit, Normal speech Eye Opening: Spontaneous Motor: Obeys Commands Verbal: Oriented GCS Score: 15 - Psych Psych: Normal mood, Normal affect Results - Vitals Vitals: Vital Signs - 24 hr 07/07/23 07/08/23 21:34 02:45 Temperature 36.5 C Heart Rate 110 H 117 H Respiratory 16 20 Rate Blood Pressure 150/90 H 142/110 H O2 Saturation 98 95 Oxygen O2 Source Room air - Rads (name of study) shoulder R Relevant Findings:: Prelim report reviewed (Impression: No acute bony abnormality.), EMP independent interpretation of test, See rad report PD Medical Decision Making - ED course Complexity details: considered differential, d/w patient, d/w family ED course: 37-year-old male with cerebral palsy usually in a wheelchair has had an accident injuring his right shoulder and he has marked reduced range of motion associated with this and no bony abnormality on x-ray. Today we are providing some pain medication and a sling. The patient does appear to be in pain and today we have administered IM Dilaudid and TL Zofran for acute treatment. Departure - Departure Disposition: 01 Home, Self Care Clinical Impression: Sprain of right shoulder Qualifiers: Encounter type: initial encounter Shoulder sprain type: unspecified sprain Qualified Code(s): S43.401A - Unspecified sprain of right shoulder joint, initial encounter Condition: Stable Instructions: ED Sprain Shoulder Follow-Up: Melvi Bal ARNP [Primary Care Provider] - Bandar Ortez MD [Provider Admit Priv/Credential] - Prescriptions: HYDROcod/ACETAM 5/325 [[place] 5/325] 1 - 2 tablet PO Q6H PRN #14 tablet PRN Reason: Pain Comments: Haider today looks like you have sprained your shoulder and there is no evidence of a fracture. My recommendation is to use a sling for comfort remove it several times per day to do range of motion exercises and take pain medication as needed for comfort. I have e-scribed some norco to the [facility] in [place]. A follow-up with orthopedics is indicated for pain that does not resolve in the next 10 days.
== END 2023-07-08 03:58 | disposition home or self-care (01) ==
LOC: ED 21:32
DX: S43.401A Unspecified sprain of right shoulder joint, initial encounter (principal); W05.0XXA Fall from non-moving wheelchair, initial encounter; G80.9 Cerebral palsy, unspecified; I10 Essential (primary) hypertension; E11.9 Type 2 diabetes mellitus without complications; Z79.899 Other long term (current) drug therapy; Z79.84 Long term (current) use of oral hypoglycemic drugs
CPT/HCPCS: 73030; 96372; 99283; J1170; Q0162

== ENCOUNTER 2023-08-17 11:35 | Emergency (ER) | payer MEDICARE, MEDICAID ==
[2023-08-17 12:11] VITALS: O2SAT 96
[2023-08-17] MEDS ORDERED: DEXAMETHASONE 10 MG/ML VIAL IM STA (12:26)
[2023-08-17] MEDS ORDERED: HYDROmorphone 1 MG/ML CARPUJECT IM STA (12:26)
--- NOTE | 2023-08-17 12:29 | ED Physician Documentation ---
PD HPI UPPER EXT INJURY - Stated complaint Stated Complaint: RT SHOULDER PX - Chief complaint Chief Complaint: Ext Problem - History obtained from History obtained from: Patient - Additonal information Additional information: The patient comes to the emergency department chief complaint of ongoing right shoulder pain and now right bicep pain after trying to transfer himself a few days ago and feeling a pop in his bicep. Patient states he cannot move his arm much about the shoulder joint, due to the pain. He also has pain shooting down from his bicep into his elbow. He has a doctor's appointment tomorrow to get an MRI scheduled, as he has been dealing with the shoulder pain for about a month since injuring the shoulder and x-rays have been negative. Patient states he has been taking Tylenol and Aleve at home. No other complaints at this time. PD PAST MEDICAL HISTORY - Past Medical History Past Medical History: Yes Cardiovascular: Hypertension Respiratory: Asthma, Other Neuro: Cerebral palsy Endocrine/Autoimmune: Type 2 diabetes GI: None : None HEENT: None Psych: None Musculoskeletal: Osteoporosis, Chronic back pain Derm: None - Past Surgical History Past Surgical History: Yes Ortho: Other - Present Medications Home Medications: Ambulatory Orders Medication Instructions Recorded Confirmed Baclofen 20 mg PO QID 11/18/12 01/21/23 Albuterol Sulf [Ventolin Hfa 2 puffs INH Q4HR PRN 05/20/22 01/21/23 Inhaler] Metformin HCl 1,000 mg ORAL BID 05/20/22 01/21/23 lisinopriL [Zestril] 5 mg PO DAILY 05/20/22 01/21/23 HYDROcod/ACETAM 5/325 [[place] 5/325] 1 - 2 tab PO Q6H PRN #7 tablet 01/21/23 Naproxen Sodium [Aleve] 220 mg PO BID PRN 01/21/23 01/21/23 cephALEXin [Keflex] 500 mg PO Q6H #28 cap 01/21/23 HYDROcod/ACETAM 5/325 [[place] 5/325] 1 - 2 tablet PO Q6H PRN #7 tablet 01/29/23 HYDROcod/ACETAM 5/325 [[place] 5/325] 1 - 2 tablet PO Q6H PRN #10 tablet 03/18/23 HYDROcod/ACETAM 5/325 [[place] 5/325] 1 - 2 tablet PO Q6H PRN #14 tablet 07/08/23 HYDROcod/ACETAM 5/325 [[place] 5/325] 1 - 2 tablet PO Q6H PRN #14 tablet 08/17/23 predniSONE [Deltasone] 10 mg PO [id number] #42 tab 08/17/23 - Allergies Allergies/Adverse Reactions: Allergies Allergy/AdvReac Type Severity Reaction Status Date / Time celecoxib [From Celebrex] Allergy Itching Verified 08/17/23 12:03 chlorzoxazone Allergy Unknown Verified 08/17/23 12:03 gabapentin Allergy Hives Verified 08/17/23 12:03 ibuprofen [From Motrin IB] Allergy Rash Verified 08/17/23 12:03 - Social History Does the pt smoke?: No Smoking Status: Never smoker Does the pt drink ETOH?: No Does the pt have substance abuse?: No - Immunizations Immunizations are current?: Yes - POLST Patient has POLST: No PD ED PE NORMAL - Vitals Vital signs reviewed: Yes - General General: Alert and oriented X 3, No acute distress, Well developed/nourished - HEENT HEENT: Atraumatic, EOMI, Moist mucous membranes - Neck Neck: Supple, no meningeal sign, No bony TTP - Cardiac Cardiac: Strong equal pulses - Respiratory Respiratory: No respiratory distress - Derm Derm: Normal color, Warm and dry, No rash - Extremities Extremities: No deformity, No edema, Other (Tenderness palpation over right biceps muscle without obvious deformity.) - Neuro 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 He has already had x-rays and been seen multiple times in the emergency department for his shoulder and at this point, I do not feel further Emergent imaging is indicated. I have encouraged patient to continue his plans to follow-up with his primary doctor tomorrow to work on scheduling MRI. Discussed usual indications for return. Departure - Departure Disposition: 01 Home, Self Care Clinical Impression: Shoulder pain, right Qualifiers: Chronicity: acute Qualified Code(s): M25.511 - Pain in right shoulder Condition: Stable Instructions: ED Shoulder Pain [facility] Prescriptions: predniSONE [Deltasone] 10 mg PO [id number] #42 tab HYDROcod/ACETAM 5/325 [[place] 5/325] 1 - 2 tablet PO Q6H PRN #14 tablet PRN Reason: Pain Comments: Further evaluation with x-ray or CT is unlikely to be helpful in the test that would be best for you to get as an MRI. Please be sure that you keep your appointment with your primary doctor tomorrow to get this scheduled. Your prescription has been electronically transmitted to the [facility] pharmacy in [place], your pharmacy of choice on record.
[2023-08-17] MEDS ORDERED: ONDANSETRON ODT 4 MG TABLET TL STA (12:43)
[2023-08-17 12:47] VITALS: BP 140/90
== END 2023-08-17 13:00 | disposition home or self-care (01) ==
LOC: ED 11:35
DX: M25.511 Pain in right shoulder (principal); I10 Essential (primary) hypertension; E11.9 Type 2 diabetes mellitus without complications; Z79.84 Long term (current) use of oral hypoglycemic drugs
CPT/HCPCS: 96372; 99283; J1170; Q0162

== ENCOUNTER 2024-01-17 11:00 | Outpatient (CLI) | payer MEDICARE, MEDICAID | END 2024-01-17 11:15 | disposition home or self-care (01) | LOC: LAB.N 11:00 | PROVIDERS: ATTEND Family Medicine | DX: L03.012 Cellulitis of left finger (principal) | CPT/HCPCS: 87070; 87205 ==

== ENCOUNTER 2024-01-26 16:58 | Emergency (ER) | payer MEDICARE, MEDICAID ==
[2024-01-26 18:30] LABS: B. PARAPERTUSSIS- RESP PCR PAN NOT DETECTED; B. PERTUSSIS- RESP PCR PANEL NOT DETECTED; C. PNEUMONIAE- RESP PCR PANEL NOT DETECTED; CORONAVIRUS 229E-RESP PCR NOT DETECTED; CORONAVIRUS HKU1-RESP PCR NOT DETECTED; CORONAVIRUS NL63-RESP PCR NOT DETECTED; CORONAVIRUS OC43-RESP PCR NOT DETECTED; HUMAN METAPNEUMOVIRUS NOT DETECTED; INFLUENZA A- RESP PCR PANEL NOT DETECTED; INFLUENZA B - RESP PCR PANEL NOT DETECTED; M. PNEUMONIAE- RESP PCR PANEL NOT DETECTED; PARAINFLUENZA VIRUS 1 NOT DETECTED; PARAINFLUENZA VIRUS 2 NOT DETECTED; PARAINFLUENZA VIRUS 3 NOT DETECTED; PARAINFLUENZA VIRUS 4 NOT DETECTED; RHINOVIRUS/ENTEROVIRUS NOT DETECTED; RSV- RESP PCR PANEL NOT DETECTED; SARS-CoV-2 -RESP PCR PANEL NOT DETECTED
--- NOTE | 2024-01-26 19:50 | XRAY Report ---
PROCEDURE: Chest 1V INDICATIONS: chest pain TECHNIQUE: One view of the chest was acquired. COMPARISON: 08/20/2020. FINDINGS: Surgical changes and devices: None. Lungs and pleura: No pleural effusions or pneumothorax. Lungs are clear. Mediastinum: Mediastinal contours appear normal. Heart size is normal. Bones and chest wall: No suspicious bony lesions. Overlying soft tissues appear unremarkable. IMPRESSION: No acute cardiopulmonary process. Reviewed by: Fabiano Keen MD on 01/26/2024 7:49 PM PDT Approved by: Fabiano Keen MD on 01/26/2024 7:49 PM PDT Station ID: [id number]
--- NOTE | 2024-01-26 20:25 | ED Physician Documentation ---
PD HPI URI - Stated complaint Stated Complaint: HIGH HR/COUGH - Chief complaint Chief Complaint: General - History obtained from History obtained from: Patient, Family - History of Present Illness Timing duration: Days Timing details: Gradual onset Pain level max: 5 Pain level now: 0 Associated symptoms: Nasal congestion, Rhinorrhea. No: Fever, Chills Contributing factors: Sick contact - Additional information Additional information: Patient is a 38-year-old male with a history of diabetes and cerebral palsy. He presents to the emergency department for cough since yesterday. He states he went to his PCP today to see if he could get cough medication but they sent him here for evaluation because his heart rate was high and his chest hurt when he coughed. His normal heart rate is anywhere from 100 to 120 bpm. No fevers or chills. No respiratory difficulty. No vomiting or abdominal pain. No diarrhea or constipation. Review of Systems Constitutional: denies: Fever, Chills Nose: reports: Rhinorrhea / runny nose, Congestion Skin: denies: Rash Musculoskeletal: denies: Neck pain, Back pain PD PAST MEDICAL HISTORY - Past Medical History Past Medical History: Yes Cardiovascular: Hypertension Respiratory: Asthma, Other Neuro: Cerebral palsy Endocrine/Autoimmune: Type 2 diabetes GI: None : None HEENT: None Psych: None Musculoskeletal: Osteoporosis, Chronic back pain Derm: None - Past Surgical History Past Surgical History: Yes Ortho: Other - Present Medications Home Medications: Ambulatory Orders Medication Instructions Recorded Confirmed Baclofen 20 mg PO QID 11/18/12 01/21/23 Albuterol Sulf [Ventolin Hfa 2 puffs INH Q4HR PRN 05/20/22 01/21/23 Inhaler] Metformin HCl 1,000 mg ORAL BID 05/20/22 01/21/23 lisinopriL [Zestril] 5 mg PO DAILY 05/20/22 01/21/23 HYDROcod/ACETAM 5/325 [[place] 5/325] 1 - 2 tab PO Q6H PRN #7 tablet 01/21/23 Naproxen Sodium [Aleve] 220 mg PO BID PRN 01/21/23 01/21/23 cephALEXin [Keflex] 500 mg PO Q6H #28 cap 01/21/23 HYDROcod/ACETAM 5/325 [[place] 5/325] 1 - 2 tablet PO Q6H PRN #7 tablet 01/29/23 HYDROcod/ACETAM 5/325 [[place] 5/325] 1 - 2 tablet PO Q6H PRN #10 tablet 03/18/23 HYDROcod/ACETAM 5/325 [[place] 5/325] 1 - 2 tablet PO Q6H PRN #14 tablet 07/08/23 HYDROcod/ACETAM 5/325 [[place] 5/325] 1 - 2 tablet PO Q6H PRN #14 tablet 08/17/23 predniSONE [Deltasone] 10 mg PO [id number] #42 tab 08/17/23 Ondansetron Odt [Zofran] 4 mg TL Q6H PRN #10 tablet 01/19/24 Benzonatate [Tessalon] 200 mg PO TID PRN #60 cap 01/26/24 - Allergies Allergies/Adverse Reactions: Allergies Allergy/AdvReac Type Severity Reaction Status Date / Time celecoxib [From Celebrex] Allergy Itching Verified 01/26/24 19:39 chlorzoxazone Allergy Unknown Verified 01/26/24 19:39 gabapentin Allergy Hives Verified 01/26/24 19:39 ibuprofen [From Motrin IB] Allergy Rash Verified 01/26/24 19:39 - Social History Does the pt smoke?: No Smoking Status: Never smoker Does the pt drink ETOH?: No Does the pt have substance abuse?: No - Immunizations Immunizations are current?: Yes - POLST Patient has POLST: No PD ED PE NORMAL - Vitals Vital signs reviewed: Yes - General General: Alert and oriented X 3, No acute distress - HEENT HEENT: Moist mucous membranes - Neck Neck: Supple, no meningeal sign - Cardiac Cardiac: RRR - Respiratory Respiratory: No respiratory distress, Clear bilaterally - Abdomen Abdomen: Soft, Non tender, Non distended - Derm Derm: Warm and dry - Neuro Neuro: Alert and oriented X 3 Results - Vitals Vitals: Oxygen O2 Source Room air - EKG (time done) 1727 EKG releavant findings:: EKG personally interpreted by author of this note. Relevant findings are: Rate: Rate (enter#) (124) Rhythm: Sinus tachycardia [place]: Normal Intervals: Normal MS QRS: Normal Ischemia: T wave inversion (III) - Labs Labs: Laboratory Tests 01/26/24 17:30 Nasal Adenovirus (PCR) NOT DETECTED Nasal B. parapertussis DNA (PCR) NOT DETECTED Nasal Coronavir 229E PCR NOT DETECTED Nasal Coronavir HKU1 PCR NOT DETECTED Nasal Coronavir NL63 PCR NOT DETECTED Nasal Coronavir OC43 PCR NOT DETECTED Nasal Enterovir/Rhinovir PCR NOT DETECTED Nasal Influenza B PCR NOT DETECTED Nasal Influenza A PCR NOT DETECTED Nasal Parainfluen 1 PCR NOT DETECTED Nasal Parainfluen 2 PCR NOT DETECTED Nasal Parainfluen 3 PCR NOT DETECTED Nasal Parainfluen 4 PCR NOT DETECTED Nasal RSV (PCR) NOT DETECTED Nasal B.pertussis DNA PCR NOT DETECTED Nasal C.pneumoniae (PCR) NOT DETECTED [place] Human Metapneumo PCR NOT DETECTED Nasal M.pneumoniae (PCR) NOT DETECTED Nasal SARS-CoV-2 (PCR) NOT DETECTED - Rads (name of study) cxr Relevant Findings:: Final report received, See rad report PD Medical Decision Making - ED course Complexity details: reviewed results, re-evaluated patient, considered differential, d/w patient ED course: No acute findings on chest x-ray. Patient is well appearing, nontoxic. Afebrile. No hypoxia. We will prescribe Tessalon pearles for Home. No indication for further work up at this time. Respiratory PCR is negative. Patient counseled regarding signs and symptoms for which I believe an urgent re-evaluation would be necessary. Patient with good understanding of and agreement to plan and is comfortable going home at this time. This document was made in part using voice recognition software. While efforts are made to proofread this document, sound alike and grammatical errors may occur. Departure - Departure Disposition: 01 Home, Self Care Clinical Impression: Viral URI with cough Condition: Good Instructions: ED Viral Syndrome Follow-Up: Melvi Bal ARNP [Primary Care Provider] - Prescriptions: Benzonatate [Tessalon] 200 mg PO TID PRN #60 cap PRN Reason: Cough Comments: Your prescription was sent to [facility] in [place]. Please use the cough medication as needed. Please follow-up with your doctor as needed for further care. Your chest x-ray does not show any evidence of pneumonia. Your respiratory panel is negative. Forms: PCP List Discharge Date/Time: 01/26/24 20:37
[2024-01-26] MEDS: BENZONATATE 100 MG CAPSULE PO STA (20:33)
[2024-01-26 20:45] VITALS: BP 128/88; O2SAT 100
== END 2024-01-26 20:37 | disposition home or self-care (01) ==
LOC: ED 16:58
DX: J06.9 Acute upper respiratory infection, unspecified (principal); E11.9 Type 2 diabetes mellitus without complications; G80.9 Cerebral palsy, unspecified; I10 Essential (primary) hypertension; Z79.899 Other long term (current) drug therapy; Z79.84 Long term (current) use of oral hypoglycemic drugs
CPT/HCPCS: 87633; 93005; 99283

== ENCOUNTER 2024-04-07 05:01 | Emergency (ER) | payer MEDICARE, MEDICAID ==
--- NOTE | 2024-04-07 05:08 | ED Physician Documentation ---
PD HPI HEENT - Stated complaint Stated Complaint: R EAR PX - History obtained from History obtained from: Patient - History of Present Illness Timing - onset: How many days ago (3) Timing - duration: Days (3) Timing - details: Gradual onset, Still present (much increased overnight, with severe ear pain and associated vomiting. No vertigo.) Location: Right ear Associated symptoms: Congestion. No: Fever, Facial swelling, Headache Similar symptoms before: Diagnosis (ear infections in the past) Review of Systems Constitutional: denies: Fever, Chills, Myalgias Nose: reports: Congestion, Sinus pressure / pain Throat: denies: Sore throat Respiratory: denies: Cough PD PAST MEDICAL HISTORY - Past Medical History Cardiovascular: Hypertension Respiratory: Asthma, Other Neuro: Cerebral palsy Endocrine/Autoimmune: Type 2 diabetes GI: None : None HEENT: None Psych: None Musculoskeletal: Osteoporosis, Chronic back pain Derm: None - Past Surgical History Past Surgical History: Yes Ortho: Other - Present Medications Home Medications: Ambulatory Orders Medication Instructions Recorded Confirmed Baclofen 20 mg PO QID 11/18/12 01/21/23 Albuterol Sulf [Ventolin Hfa 2 puffs INH Q4HR PRN 05/20/22 01/21/23 Inhaler] Metformin HCl 1,000 mg ORAL BID 05/20/22 01/21/23 lisinopriL [Zestril] 5 mg PO DAILY 05/20/22 01/21/23 HYDROcod/ACETAM 5/325 [[place] 5/325] 1 - 2 tab PO Q6H PRN #7 tablet 01/21/23 Naproxen Sodium [Aleve] 220 mg PO BID PRN 01/21/23 01/21/23 cephALEXin [Keflex] 500 mg PO Q6H #28 cap 01/21/23 HYDROcod/ACETAM 5/325 [[place] 5/325] 1 - 2 tablet PO Q6H PRN #7 tablet 01/29/23 HYDROcod/ACETAM 5/325 [[place] 5/325] 1 - 2 tablet PO Q6H PRN #10 tablet 03/18/23 HYDROcod/ACETAM 5/325 [[place] 5/325] 1 - 2 tablet PO Q6H PRN #14 tablet 07/08/23 HYDROcod/ACETAM 5/325 [[place] 5/325] 1 - 2 tablet PO Q6H PRN #14 tablet 08/17/23 predniSONE [Deltasone] 10 mg PO [id number] #42 tab 08/17/23 Ondansetron Odt [Zofran] 4 mg TL Q6H PRN #10 tablet 01/19/24 Benzonatate [Tessalon] 200 mg PO TID PRN #60 cap 01/26/24 Amox/Clav 875/125 [Augmentin] 1 each PO Q12H #14 tablet 04/07/24 Cetirizine [ZyrTEC] 10 mg PO DAILY #15 tablet 04/07/24 Fluticasone Propionate 2 spr NS DAILY 30 Days #1 ml 04/07/24 HYDROcod/ACETAM 5/325 [[place] 5/325] 1 ea PO Q6H PRN #12 tablet 04/07/24 Ondansetron Odt [Zofran] 4 mg TL Q6H PRN #10 tablet 04/07/24 - Allergies Allergies/Adverse Reactions: Allergies Allergy/AdvReac Type Severity Reaction Status Date / Time celecoxib [From Celebrex] Allergy Itching Verified 04/07/24 05:12 chlorzoxazone Allergy Unknown Verified 04/07/24 05:12 gabapentin Allergy Hives Verified 04/07/24 05:12 ibuprofen [From Motrin IB] Allergy Rash Verified 04/07/24 05:12 - Social History Does the pt smoke?: No Smoking Status: Never smoker Does the pt drink ETOH?: No Does the pt have substance abuse?: No - Immunizations Immunizations are current?: Yes - POLST Patient has POLST: No PD ED PE NORMAL - Vitals Vital signs reviewed: Yes - General General: Alert and oriented X 3, Well developed/nourished, Other (Appears significantly uncomfortable to the right ear pain and having dry heaving type vomiting.) - HEENT HEENT: PERRL, EOMI (no nystagmus), Pharynx benign. No: Ears normal (Left ear is normal. The right ear shows a normal canal. There is significant bulging redness and pressure on the right tympanic membrane without any signs of perforation or bleeding.) - Neck Neck: Supple, no meningeal sign, No adenopathy - Cardiac Cardiac: RRR, No murmur Results - Vitals Vitals: Vital Signs - 24 hr 04/07/24 05:10 Temperature 36.3 C L Heart Rate 90 Respiratory 18 Rate Blood Pressure 165/109 H O2 Saturation 98 Oxygen O2 Source Room air PD Medical Decision Making - ED course Complexity details: considered differential (Findings and symptoms consistent with ear infection. He has not had had cold symptoms per se but some sinus pressure and congestion. Consider allergies or viral illness but I would treat the sinus congestion as well as the ear infection.), d/w patient Departure - Departure Disposition: 01 Home, Self Care Clinical Impression: Right ear pain Nausea and vomiting Qualifiers: Vomiting type: unspecified Qualified Code(s): R11.2 - Nausea with vomiting, unspecified Otitis media Qualifiers: Otitis media type: suppurative Chronicity: acute Laterality: right Recurrence: recurrent Spontaneous tympanic membrane rupture: without spontaneous rupture Qualified Code(s): H66.004 - Acute suppurative otitis media without spontaneous rupture of ear drum, recurrent, right ear Condition: Stable Record reviewed to determine appropriate education?: Yes Follow-Up: Melvi Bal ARNP [Primary Care Provider] - Prescriptions: Amox/Clav 875/125 [Augmentin] 1 each PO Q12H #14 tablet Fluticasone Propionate 2 spr NS DAILY 30 Days #1 ml HYDROcod/ACETAM 5/325 [[place] 5/325] 1 ea PO Q6H PRN #12 tablet PRN Reason: Pain Ondansetron Odt [Zofran] 4 mg TL Q6H PRN #10 tablet PRN Reason: Nausea / Vomiting Cetirizine [ZyrTEC] 10 mg PO DAILY #15 tablet Comments: Your eardrum is red and pressured. No signs of perforation. An ear infection like this typically starts with poor drainage through the eustachian tube and sinus congestion leading to back pressuring and trapping of germs. As such he can be treated not only with the antibiotic and some anti-inflammatories but also trying to improve inflammation and drainage in the nasal passage and sinus. I wrote for antibiotic Augmentin twice daily for a week. You were given a dose of a steroid anti-inflammatory here as well that should help for the initial 2 to 3 days. I would suggest adding cetirizine antihistamine to decrease the fluid in the eustachian tube and a steroid no spray fluticasone for several weeks to a month. I sent these to your primary pharmacy. Tylenol if needed for pains or hydrocodone for worse pain initially. I would anticipate improvement over the next 2 to 3 days and resolution over 3 to 5 days. Follow-up for recheck if not getting better in that timeframe.
[2024-04-07] MEDS: dexAMETHasone 4 MG TABLET PO STA (05:42)
[2024-04-07] MEDS: AMOX/CLAV 875 MG/125 MG TABLET PO STA (05:42)
[2024-04-07] MEDS: ONDANSETRON 4 MG/2 ML VIAL IM STA (05:43)
[2024-04-07] MEDS: HYDROmorphone 1 MG/ML CARPUJECT IM STA (05:43)
[2024-04-07 06:07] VITALS: BP 158/96; O2SAT 97
== END 2024-04-07 06:02 | disposition home or self-care (01) ==
LOC: ED 05:01
DX: H66.004 Acute suppurative otitis media without spontaneous rupture of ear drum, recurrent, right ear (principal); R11.2 Nausea with vomiting, unspecified
CPT/HCPCS: 96372; 99283; A9270; J1170; J8540